=== PATIENT | female | born 1975 | race Two or more races ===

== ENCOUNTER 2019-04-13 10:34 | Emergency (ER) | payer SELFPAY ==
[2019-04-13 10:47] VITALS: BP 126/65; PULSE 68; TEMP 98.4; BMI 41.5
--- NOTE | 2019-04-13 11:08 | PDOC ---
History of Present Illness - General Chief Complaint: Pain, Acute Stated Complaint: KNEE PAIN Time Seen by Provider: 04/13/19 11:03 History Source: Patient Exam Limitations: No Limitations Past History - Travel Traveled outside of the country in the last 30 days: No Close contact w/someone who was outside of country & ill: No - Past Medical History Allergies/Adverse Reactions: Allergies Allergy/AdvReac Type Severity Reaction Status Date / Time No Known Allergies Allergy Verified 04/13/19 10:45 Home Medications: Ambulatory Orders Aleve 220 mg PO ONCE 04/13/19 Ibuprofen 600 mg PO Q6H #30 tablet 04/13/19 COPD: No - Suicide/Smoking/Psychosocial Hx Smoking History: Never smoked Review of Systems - Review of Systems Able to Perform ROS?: Yes Comments:: 04/13/19 11:04 CONSTITUTIONAL: Absent: fever, chills, diaphoresis, generalized weakness, malaise, loss of appetite MUSCULOSKELETAL: Present: L knee pain Absent: myalgia, joint swelling SKIN: Absent: rash, itching, pallor NEUROLOGIC: Absent: headache, focal weakness or paresthesias, dizziness, unsteady gait, seizure, mental status changes, bladder or bowel incontinence PSYCHIATRIC: Absent: anxiety, depression, suicidal or homicidal ideation, hallucinations. Is the patient limited Azerbaijani proficient: No *Physical Exam - Vital Signs Last Vital Signs Temp Pulse Resp BP Pulse Ox 98.4 F 68 18 126/65 98 04/13/19 10:46 04/13/19 10:46 04/13/19 10:46 04/13/19 10:46 04/13/19 10:46 - Physical Exam Comments: 04/13/19 11:05 GENERAL: The patient is awake, alert, and fully oriented, in no acute distress. HEAD: Normal with no signs of trauma. EYES: Pupils equal, round and reactive to light, extraocular movements intact, sclera anicteric, conjunctiva clear. EXTREMITIES: TTP of the posterior L knee and calf. Negative Amber's, alec' s and posterior draw testing. Negative varus and valgus stress testing. Normal range of motion, no edema. NEUROLOGICAL: Normal speech, normal gait. PSYCH: Normal mood, normal affect. SKIN: Warm, Dry, normal turgor, no rashes or lesions noted. Medical Decision Making - Medical Decision Making 04/13/19 11:33 The patient is a 43 y/o F who presents to the ER for L knee pain for two weeks. The patient states that she fell approximately 2 weeks ago, but landed on her L knee. She now states that her left knee swells at night and it hurts to walk down the stairs. She also states that after standing for long periods her knee starts to hurt. She states that the pain is mostly in the back of her knee. Denies fevers, chills, numbness and tingling to the affected extremity weakness the affected extremity. The patient is taking Motrin at home with little relief of her symptoms. A/P: Knee pain On exam patient with direct palpation of the posterior knee and calf. Negative Rohit's testing, Alec's testing and posterior drawer testing Skin color and temperature appear normal, good distal pulses. X-ray and US ordered 04/13/19 13:48 Delay of d/c 2/2 issue with PACS Spoke with Dr. Tena states no DVT on read. Unable to close out report Will dc home with orthopedic followup Most likely knee sprain I discussed the physical exam findings, ancillary test results and final diagnoses with the patient. I answered all of the patient's questions. The patient was satisfied with the care received and felt comfortable with the discharge plan and treatment plan. The Patient agrees to follow up with the primary care physician/specialist within 24-72 hours. Return precautions were given. *DC/Admit/Observation/Transfer Diagnosis at time of Disposition: Knee sprain Qualifiers: Encounter type: initial encounter Involved ligament of knee: unspecified ligament Laterality: left Qualified Code(s): S83.92XA - Sprain of unspecified site of left knee, initial encounter - Discharge Dispostion Disposition: HOME Condition at time of disposition: Stable Decision to Admit order: No - Referrals Referrals: Edre Rhoades DO [Staff Physician] - Vivek Taylor MD [Staff Physician] - Neri Perez MD [Staff Physician] - - Patient Instructions Printed Discharge Instructions: DI for Knee Pain Additional Instructions: You were evaluated for your knee pain Your DVT study was negative for clots Your x-ray was negative for broken bones You most likely have a knee sprain Keep the knee elevated at rest You may take Motrin 600mg every 6 hours as needed for pain Wear the CECILIA wrap for comfort Follow up with orthopedics in 24-72 hours. A referral has been provided to you Return to the ER for any new or worsening symptoms Te evaluaron por dolor de rodilla Gunter estudio de TVP fue negativo para cogulos Gunter radiografa fue negativa para los huesos rotos Es muy probable que tengas un esguince de rodilla Mantener la rodilla elevada en reposo Puede erendira Motrin 600 mg cada 6 horas segn sea necesario para el dolor. Use la envoltura CECILIA para mayor comodidad Seguimiento con ortopedia en 24-72 horas. Se le anderson proporcionado poly referencia Regrese a la deric de emergencias para detectar cualquier sntoma nuevo o que empeore. - Post Discharge Activity Forms/Work/School Notes: Back to Work
[2019-04-13] MEDS ORDERED: ACETAMINOPHEN 325 MG TABLET (FP) PO ONE (11:22)
[2019-04-13] MEDS ORDERED: ACETAMINOPHEN 325 MG TABLET (FP) ONE (11:27)
== END 2019-04-13 13:59 | disposition home or self-care (01) ==
LOC: JERFT 10:34
DX: S83.8X2A Sprain of other specified parts of left knee, initial encounter (principal); X58.XXXA Exposure to other specified factors, initial encounter; Y93.89 Activity, other specified; Y92.038 Other place in apartment as the place of occurrence of the external cause; Y99.8 Other external cause status
CPT/HCPCS: 73562-TC-LT-FY; 93971-TC; 99281-25

== ENCOUNTER 2020-12-22 16:55 | Emergency (ER) | payer SELFPAY ==
[2020-12-22 17:56] VITALS: BMI 42.5
[2020-12-22] MEDS ORDERED: ACETAMINOPHEN 500 MG TABLET (FP) PO ONE (18:40)
[2020-12-22] MEDS ORDERED: ACETAMINOPHEN 325 MG TABLET (FP) ONE (21:20)
[2020-12-22] MEDS ORDERED: ACETAMINOPHEN 500 MG TABLET (FP) ONE (21:23)
[2020-12-22 21:44] LABS: BASO % 0.2 % (0-2.0); EOS % 0.1 % (0-4.5); HEMOGLOBIN 12.8 GM/dL (10.7-15.3); LYMPH % 15.9 % (8-40); MCH 29.5 pg (25.7-33.7); MCHC 32.8 g/dl (32.0-36.0); MEAN CELL VOLUME 89.9 fl (80-96); MONO % 7.1 % (3.8-10.2); NEUT % 76.7 % (42.8-82.8); PLATELET COUNT 168 K/MM3 (134-434); RBC 4.34 M/mm3 (3.60-5.2); RDW 13.7 % (11.6-15.6); WHITE BLOOD COUNT 4.5 K/mm3 (4.0-10.0)
[2020-12-22 22:01] LABS: CHLORIDE 108 mmol/L (98-107); SODIUM 139 mmol/L (136-145)
[2020-12-22 22:06] LABS: BLOOD UREA NITROGEN 11.2 mg/dL (7-18); CALCIUM 8.4 mg/dL (8.5-10.1)
[2020-12-22 22:07] LABS: ALBUMIN 3.2 g/dl (3.4-5.0); ANION GAP 5 MMOL/L (8-16); CO2 26 mmol/L (21-32); GLUCOSE,RANDOM 108 mg/dL (74-106)
[2020-12-22 22:09] LABS: SGOT/AST 99 U/L (15-37); SGPT/ALT 107 U/L (13-61)
[2020-12-22 22:10] LABS: CREATININE 0.6 mg/dL (0.55-1.3)
[2020-12-22 22:11] LABS: BILIRUBIN,TOTAL 0.3 mg/dL (0.2-1); TOT PROT 6.8 g/dl (6.4-8.2)
[2020-12-22 22:12] LABS: ALK PHOS 129 U/L (45-117)
[2020-12-22 22:54] VITALS: BP 114/57; PULSE 84; TEMP 99.3
== END 2020-12-22 22:51 | disposition home or self-care (01) ==
LOC: JER 16:55
DX: R07.9 Chest pain, unspecified (principal); U07.1 COVID-19
CPT/HCPCS: 36415; 71046-TC-FY; 80053; 82550; 84484; 85025; 93005; 93010; 99285-25

== ENCOUNTER 2020-12-25 22:31 | Inpatient (IN) | payer OTHER ==
[2020-12-25] MEDS ORDERED: DEXAMETHASONE SOD PHOSPHATE 4 MG/1 ML VIAL IVPUSH ONE (22:55)
[2020-12-25 23:06] LABS: VENOUS BASE EXCESS 0.3 mmol/L (-2-2); VENOUS O2 SATURATION 49.1 % (70-80); VENOUS PCO2 39.8 mmHg (38-52); VENOUS PH 7.412 (7.310-7.410)
[2020-12-25 23:08] LABS: BASO % 0.1 % (0-2.0); HEMATOCRIT 39.7 % (32.4-45.2); LYMPH % 4.3 % (8-40); MCH 29.3 pg (25.7-33.7); MCHC 32.6 g/dl (32.0-36.0); MEAN CELL VOLUME 89.9 fl (80-96); NEUT % 91.6 % (42.8-82.8); PLATELET COUNT 273 K/MM3 (134-434); RBC 4.41 M/mm3 (3.60-5.2); RDW 13.9 % (11.6-15.6); WHITE BLOOD COUNT 10.3 K/mm3 (4.0-10.0)
[2020-12-25] MEDS ORDERED: DEXAMETHASONE SOD PHOSPHATE 10 MG/1 ML VIAL ONE (23:11)
[2020-12-25 23:32] LABS: CHLORIDE 108 mmol/L (98-107); SODIUM 141 mmol/L (136-145)
[2020-12-25 23:34] LABS: ALBUMIN 3.1 g/dl (3.4-5.0); CALCIUM 8.6 mg/dL (8.5-10.1)
[2020-12-25 23:35] LABS: ANION GAP 9 MMOL/L (8-16); BLOOD UREA NITROGEN 10.1 mg/dL (7-18); CO2 24 mmol/L (21-32); GLUCOSE,RANDOM 144 mg/dL (74-106)
[2020-12-25 23:38] LABS: BILIRUBIN,DIRECT 0.2 mg/dL (0.0-0.2); CREATININE 0.7 mg/dL (0.55-1.3); SGOT/AST 87 U/L (15-37); SGPT/ALT 102 U/L (13-61)
[2020-12-25 23:39] LABS: BILIRUBIN,TOTAL 0.3 mg/dL (0.2-1); LDH 620 U/L (84-246); TOT PROT 6.9 g/dl (6.4-8.2)
[2020-12-25 23:48] LABS: ANISOCYTOSIS 0; MACROCYTOSIS 0; PLATELET ESTIMATE NORMAL
[2020-12-25 23:52] LABS: INR 1.06 (0.83-1.09); PROTHROMBIN TIME (PATIENT) 12.8 SEC (9.7-13.0)
[2020-12-25 23:55] LABS: ACTIVATED PTT 28.9 SECONDS (25.2-36.5)
[2020-12-26] LABS: LACTIC ACID 2.3 mmol/L (0.4-2.0)
[2020-12-26] MEDS ORDERED: ACETAMINOPHEN 1000 MG/100 ML VIAL (NON FORMULARY) IVPB ONE (00:11)
[2020-12-26] MEDS ORDERED: LACTATED RINGERS SOLUTION 1000 ML INFUS.BAG IV STA (00:13)
[2020-12-26] MEDS ORDERED: ACETAMINOPHEN INJECTION 100 ML IVPB ONE (00:14)
[2020-12-26 01:36] LABS: ALK PHOS 160 U/L (45-117)
[2020-12-26] MEDS ORDERED: FUROSEMIDE 40 MG/4 ML INJECTABLE VIAL IVPUSH ONE ×2 (03:30→05:52)
[2020-12-26] MEDS ORDERED: FUROSEMIDE 40 MG/4 ML INJECTABLE VIAL ONE ×2 (03:34→06:27)
[2020-12-26] MEDS ORDERED: ALBUTEROL SO4 HFA INHALER IH PRN (03:47)
[2020-12-26] MEDS ORDERED: guaiFENesin 200 MG/10 ML 10 ML UNIT-DOSE CUPS PO PRN (03:47)
[2020-12-26 06:07] LABS: BASO % 0.1 % (0-2.0); HEMATOCRIT 39.5 % (32.4-45.2); HEMOGLOBIN 13.2 GM/dL (10.7-15.3); LYMPH % 4.8 % (8-40); MCH 29.7 pg (25.7-33.7); MCHC 33.5 g/dl (32.0-36.0); MEAN CELL VOLUME 88.7 fl (80-96); MEAN PLT VOLUME 7.9 fl (7.5-11.1); MONO % 3.2 % (3.8-10.2); NEUT % 91.9 % (42.8-82.8); PLATELET COUNT 291 K/MM3 (134-434); RBC 4.45 M/mm3 (3.60-5.2); RDW 13.8 % (11.6-15.6); WHITE BLOOD COUNT 8.7 K/mm3 (4.0-10.0)
[2020-12-26] MEDS ORDERED: ACETAMINOPHEN 325 MG TABLET (FP) PO PRN (06:10)
[2020-12-26 06:23] LABS: MAGNESIUM 2.7 mg/dL (1.8-2.4)
[2020-12-26] MEDS ORDERED: MORPHINE SULFATE 2 MG/ML VIAL IVPUSH ONE (06:26)
[2020-12-26] MEDS ORDERED: morphine CARPU-JECT 2 MG/1 ML DISP.SYRIN IVPUSH ONE (06:26)
[2020-12-26 06:33] LABS: CALCIUM 8.6 mg/dL (8.5-10.1)
[2020-12-26] MEDS ORDERED: MORPHINE SULFATE 2 MG/ML VIAL ONE (06:33)
[2020-12-26 06:34] LABS: BLOOD UREA NITROGEN 10.3 mg/dL (7-18)
[2020-12-26 06:37] LABS: CREATININE 0.6 mg/dL (0.55-1.3)
[2020-12-26 06:38] LABS: BILIRUBIN,TOTAL 0.3 mg/dL (0.2-1)
[2020-12-26] MEDS ORDERED: morphine SULFATE 4 MG/ML VIAL ONE (08:25)
[2020-12-26] MEDS ORDERED: CHOLECALCIFEROL (VIT D3) 1,000 UNIT (25 MCG) TABLET ONE (08:30)
[2020-12-26] MEDS ORDERED: ASCORBIC ACID 500 MG TABLET (FP) ONE (08:30)
[2020-12-26] MEDS ORDERED: ZINC SULFATE 220 MG CAPSULE (FP) ONE (08:30)
[2020-12-26] MEDS ORDERED: DEXAMETHASONE SOD PHOSPHATE 4 MG/1 ML VIAL ONE (08:30)
[2020-12-26] MEDS ORDERED: ENOXAPARIN NA (PORCINE) 40 MG/0.4 ML DISP.SYRIN SQ ONE (08:30)
[2020-12-26] MEDS ORDERED: TOCILIZUMAB (ACTEMRA) 200 MG/10 ML VIAL IVPB ONE (08:56)
[2020-12-26] MEDS: DEXAMETHASONE SOD PHOSPHATE 4 MG/1 ML VIAL IVPUSH SCH (09:01)
[2020-12-26] MEDS: CHOLECALCIFEROL (VIT D3) 1,000 UNIT (25 MCG) TABLET PO SCH (09:01)
[2020-12-26] MEDS: ZINC SULFATE 220 MG CAPSULE (FP) PO SCH (09:01)
[2020-12-26] MEDS: ASCORBIC ACID 500 MG TABLET (FP) PO SCH ×2 (09:01→21:39)
[2020-12-26 09:30] LABS: ANISOCYTOSIS 0; MACROCYTOSIS 0; PLATELET ESTIMATE NORMAL
[2020-12-26] MEDS ORDERED: SODIUM CHLORIDE IVPB ONE (09:30)
[2020-12-26] MEDS ORDERED: TOCILIZUMAB IVPB ONE (09:30)
[2020-12-26] MEDS ORDERED: ENOXAPARIN NA (PORCINE) 40 MG/0.4 ML DISP.SYRIN SQ SCH ×2 (10:00→22:00)
[2020-12-26] MEDS: BUDESONIDE/FORMETEROL FUMARATE 160/4.5 mcg INHALER IH SCH ×2 (11:08→21:39)
[2020-12-26] MEDS ORDERED: REMDESIVIR 200 MG in SODIUM CHLORIDE 210 ML IVPB ONE (15:47)
[2020-12-26 19:17] LABS: EPI CELLS 16 /uL (0-25.1); HYALINE CASTS 2 /uL (0-3.1); URINE APPEARANCE CLEAR; URINE BACTERIA 246 /uL (0-1359); URINE BILIRUBIN NEGATIVE (NEGATIVE); URINE COLOR DK YELLOW; URINE GLUCOSE (UA) NEGATIVE (NEGATIVE); URINE KETONE NEGATIVE (NEGATIVE); URINE LEUK ESTERASE NEGATIVE (NEGATIVE); URINE NITRITE NEGATIVE (NEGATIVE); URINE PROTEIN 1+ (NEGATIVE); URINE RBC 23 /uL (0-23.9); URINE WBC 6 /uL (0-25.8)
[2020-12-26] MEDS: MUPIROCIN 2% TOPICAL OINTMENT FOR DECOLONIZATION NS SCH (21:39)
[2020-12-26] MEDS: CHLORHEXIDINE GLUCONATE 4% CLEANSER FOR DECOLONIZATION TP SCH (21:39)
[2020-12-27] MEDS ORDERED: ONDANSETRON 4 MG/2 ML VIAL IVPUSH ONE ×2 (00:31→06:23)
[2020-12-27] MEDS ORDERED: ONDANSETRON 4 MG/2 ML VIAL ONE (05:49)
[2020-12-27 06:36] LABS: HEMATOCRIT 38.3 % (32.4-45.2); HEMOGLOBIN 12.9 GM/dL (10.7-15.3); MCH 29.9 pg (25.7-33.7); MCHC 33.8 g/dl (32.0-36.0); MEAN CELL VOLUME 88.6 fl (80-96); PLATELET COUNT 343 K/MM3 (134-434); RBC 4.32 M/mm3 (3.60-5.2); RDW 13.8 % (11.6-15.6); WHITE BLOOD COUNT 5.5 K/mm3 (4.0-10.0)
[2020-12-27 07:12] LABS: CHLORIDE 108 mmol/L (98-107); SODIUM 141 mmol/L (136-145)
[2020-12-27 07:17] LABS: ALBUMIN 2.7 g/dl (3.4-5.0); ANION GAP 5 MMOL/L (8-16); BLOOD UREA NITROGEN 24.8 mg/dL (7-18); CALCIUM 8.2 mg/dL (8.5-10.1); CO2 28 mmol/L (21-32); GLUCOSE,RANDOM 125 mg/dL (74-106)
[2020-12-27 07:19] LABS: MAGNESIUM 2.6 mg/dL (1.8-2.4)
[2020-12-27 07:20] LABS: CREATININE 0.6 mg/dL (0.55-1.3); SGOT/AST 65 U/L (15-37); SGPT/ALT 81 U/L (13-61)
[2020-12-27 07:22] LABS: BILIRUBIN,TOTAL 0.3 mg/dL (0.2-1); TOT PROT 6.6 g/dl (6.4-8.2)
[2020-12-27 07:30] LABS: LDH 564 U/L (84-246)
[2020-12-27 07:34] LABS: ALK PHOS 121 U/L (45-117)
[2020-12-27] MEDS ORDERED: MORPHINE SULFATE 2 MG/ML VIAL IVPUSH ONE (08:22)
[2020-12-27] MEDS: MUPIROCIN 2% TOPICAL OINTMENT FOR DECOLONIZATION NS SCH ×2 (09:00→22:28)
[2020-12-27] MEDS: CHOLECALCIFEROL (VIT D3) 1,000 UNIT (25 MCG) TABLET PO SCH (09:01)
[2020-12-27] MEDS: ZINC SULFATE 220 MG CAPSULE (FP) PO SCH (09:01)
[2020-12-27] MEDS: ASCORBIC ACID 500 MG TABLET (FP) PO SCH ×2 (09:01→22:30)
[2020-12-27] MEDS: DEXAMETHASONE SOD PHOSPHATE 4 MG/1 ML VIAL IVPUSH SCH (09:03)
[2020-12-27] MEDS ORDERED: ENOXAPARIN NA (PORCINE) 40 MG/0.4 ML DISP.SYRIN SQ SCH (10:00)
[2020-12-27] MEDS: ENOXAPARIN NA (PORCINE) 100 MG/1 ML DISP.SYRIN SQ SCH ×2 (10:53→22:29)
[2020-12-27] MEDS ORDERED: guaiFENesin 200 MG/10 ML 10 ML UNIT-DOSE CUPS PO PRN (13:01)
[2020-12-27] MEDS ORDERED: ACETAMINOPHEN 325 MG TABLET (FP) PO PRN (13:01)
[2020-12-27 13:10] LABS: HEP B CORE AB, TOT Negative (Negative)
[2020-12-27] MEDS ORDERED: PT OWN MED DRAWER 7, Y5N ONE (16:33)
[2020-12-27] MEDS: REMDESIVIR 100 MG in SODIUM CHLORIDE 230 ML IVPB SCH (16:35)
[2020-12-27] MEDS: ALBUTEROL SO4 HFA INHALER IH SCH ×4 (16:51→22:28)
[2020-12-27] MEDS: BUDESONIDE/FORMETEROL FUMARATE 160/4.5 mcg INHALER IH SCH ×2 (17:25→22:29)
[2020-12-27] MEDS: CHLORHEXIDINE GLUCONATE 4% CLEANSER FOR DECOLONIZATION TP SCH (22:28)
[2020-12-27] MEDS ORDERED: ONDANSETRON *ODT* 4 MG TABLET SL ONE (23:51)
[2020-12-28] MEDS: ALBUTEROL SO4 HFA INHALER IH SCH ×6 (01:45→21:46)
[2020-12-28 06:32] LABS: BASO % 0.3 % (0-2.0); EOS % 0.1 % (0-4.5); HEMATOCRIT 38.3 % (32.4-45.2); HEMOGLOBIN 12.7 GM/dL (10.7-15.3); LYMPH % 13.2 % (8-40); MCH 29.8 pg (25.7-33.7); MCHC 33.3 g/dl (32.0-36.0); MEAN CELL VOLUME 89.4 fl (80-96); MEAN PLT VOLUME 7.5 fl (7.5-11.1); MONO % 8.7 % (3.8-10.2); NEUT % 77.7 % (42.8-82.8); PLATELET COUNT 347 K/MM3 (134-434); RBC 4.28 M/mm3 (3.60-5.2); RDW 13.8 % (11.6-15.6); WHITE BLOOD COUNT 6.1 K/mm3 (4.0-10.0)
[2020-12-28 07:00] LABS: CALCIUM 8.1 mg/dL (8.5-10.1)
[2020-12-28 07:01] LABS: ALBUMIN 2.7 g/dl (3.4-5.0); BLOOD UREA NITROGEN 25.8 mg/dL (7-18); MAGNESIUM 2.4 mg/dL (1.8-2.4)
[2020-12-28 07:04] LABS: BILIRUBIN,TOTAL 0.4 mg/dL (0.2-1); CREATININE 0.6 mg/dL (0.55-1.3); PHOSPHOROUS 4.1 mg/dL (2.5-4.9); TOT PROT 6.3 g/dl (6.4-8.2)
[2020-12-28] MEDS: CHOLECALCIFEROL (VIT D3) 1,000 UNIT (25 MCG) TABLET PO SCH (10:06)
[2020-12-28] MEDS: ZINC SULFATE 220 MG CAPSULE (FP) PO SCH (10:06)
[2020-12-28] MEDS: ASCORBIC ACID 500 MG TABLET (FP) PO SCH ×2 (10:07→21:48)
[2020-12-28] MEDS: DEXAMETHASONE SOD PHOSPHATE 4 MG/1 ML VIAL IVPUSH SCH (10:07)
[2020-12-28] MEDS: ENOXAPARIN NA (PORCINE) 100 MG/1 ML DISP.SYRIN SQ SCH ×2 (10:09→21:47)
[2020-12-28] MEDS: MUPIROCIN 2% TOPICAL OINTMENT FOR DECOLONIZATION NS SCH ×2 (10:10→21:46)
[2020-12-28] MEDS: BUDESONIDE/FORMETEROL FUMARATE 160/4.5 mcg INHALER IH SCH ×2 (10:10→21:47)
[2020-12-28] MEDS: REMDESIVIR 100 MG in SODIUM CHLORIDE 230 ML IVPB SCH ×2 (10:19→17:00)
[2020-12-28] MEDS: guaiFENesin/CODEINE 10 ML UNIT-DOSE CUPS PO PRN (18:29)
[2020-12-28] MEDS: CHLORHEXIDINE GLUCONATE 4% CLEANSER FOR DECOLONIZATION TP SCH (21:46)
[2020-12-29] MEDS: TRIMETHOBENZAMIDE HCL 300 MG CAPSULE PO PRN ×3 (01:42→21:09)
[2020-12-29] MEDS: ALBUTEROL SO4 HFA INHALER IH SCH ×6 (01:44→21:23)
[2020-12-29] MEDS: guaiFENesin/CODEINE 10 ML UNIT-DOSE CUPS PO PRN ×3 (05:18→20:52)
[2020-12-29 07:17] LABS: BASO % 0.1 % (0-2.0); EOS % 1.1 % (0-4.5); HEMATOCRIT 38.8 % (32.4-45.2); HEMOGLOBIN 12.9 GM/dL (10.7-15.3); LYMPH % 12.9 % (8-40); MCH 29.5 pg (25.7-33.7); MCHC 33.2 g/dl (32.0-36.0); MEAN CELL VOLUME 88.7 fl (80-96); MEAN PLT VOLUME 7.6 fl (7.5-11.1); MONO % 8.6 % (3.8-10.2); NEUT % 77.3 % (42.8-82.8); PLATELET COUNT 376 K/MM3 (134-434); RBC 4.38 M/mm3 (3.60-5.2); RDW 13.5 % (11.6-15.6); WHITE BLOOD COUNT 7.3 K/mm3 (4.0-10.0)
[2020-12-29 07:56] LABS: CALCIUM 8.2 mg/dL (8.5-10.1)
[2020-12-29 07:57] LABS: ALBUMIN 2.8 g/dl (3.4-5.0); BLOOD UREA NITROGEN 23.1 mg/dL (7-18); MAGNESIUM 2.4 mg/dL (1.8-2.4)
[2020-12-29 07:59] LABS: CREATININE 0.5 mg/dL (0.55-1.3); PHOSPHOROUS 3.7 mg/dL (2.5-4.9)
[2020-12-29 08:01] LABS: BILIRUBIN,TOTAL 0.7 mg/dL (0.2-1)
[2020-12-29 08:02] LABS: TOT PROT 6.1 g/dl (6.4-8.2)
[2020-12-29] MEDS: DEXAMETHASONE SOD PHOSPHATE 4 MG/1 ML VIAL IVPUSH SCH (09:45)
[2020-12-29] MEDS: MUPIROCIN 2% TOPICAL OINTMENT FOR DECOLONIZATION NS SCH ×2 (09:45→21:10)
[2020-12-29] MEDS: CHOLECALCIFEROL (VIT D3) 1,000 UNIT (25 MCG) TABLET PO SCH (09:46)
[2020-12-29] MEDS: ZINC SULFATE 220 MG CAPSULE (FP) PO SCH (09:46)
[2020-12-29] MEDS: ASCORBIC ACID 500 MG TABLET (FP) PO SCH ×2 (09:46→21:09)
[2020-12-29] MEDS: FAMOTIDINE 20 MG TABLET PO SCH (09:46)
[2020-12-29] MEDS: ENOXAPARIN NA (PORCINE) 100 MG/1 ML DISP.SYRIN SQ SCH ×2 (09:46→21:09)
[2020-12-29] MEDS: BUDESONIDE/FORMETEROL FUMARATE 160/4.5 mcg INHALER IH SCH ×2 (09:47→21:10)
[2020-12-29] MEDS ORDERED: PT OWN MED DRAWER 7, Y5N ONE ×2 (13:06→20:41)
[2020-12-29] MEDS: REMDESIVIR 100 MG in SODIUM CHLORIDE 230 ML IVPB SCH (16:47)
[2020-12-29] MEDS: CHLORHEXIDINE GLUCONATE 4% CLEANSER FOR DECOLONIZATION TP SCH (21:10)
[2020-12-29] MEDS: ACETAMINOPHEN 325 MG TABLET (FP) PO PRN (21:23)
[2020-12-30] MEDS: ALBUTEROL SO4 HFA INHALER IH SCH ×6 (04:29→22:12)
[2020-12-30 06:40] LABS: BASO % 0.1 % (0-2.0); EOS % 1.6 % (0-4.5); HEMATOCRIT 39.8 % (32.4-45.2); HEMOGLOBIN 13.3 GM/dL (10.7-15.3); MCH 29.7 pg (25.7-33.7); MCHC 33.6 g/dl (32.0-36.0); MEAN CELL VOLUME 88.5 fl (80-96); MEAN PLT VOLUME 7.8 fl (7.5-11.1); MONO % 6.7 % (3.8-10.2); NEUT % 82.6 % (42.8-82.8); PLATELET COUNT 412 K/MM3 (134-434); RDW 13.7 % (11.6-15.6); WHITE BLOOD COUNT 12.3 K/mm3 (4.0-10.0)
[2020-12-30 07:18] LABS: ALBUMIN 2.9 g/dl (3.4-5.0); CALCIUM 8.3 mg/dL (8.5-10.1)
[2020-12-30 07:19] LABS: BLOOD UREA NITROGEN 21.5 mg/dL (7-18); MAGNESIUM 2.4 mg/dL (1.8-2.4)
[2020-12-30 07:21] LABS: PHOSPHOROUS 4.3 mg/dL (2.5-4.9)
[2020-12-30 07:22] LABS: BILIRUBIN,TOTAL 0.4 mg/dL (0.2-1); CREATININE 0.6 mg/dL (0.55-1.3)
[2020-12-30 07:24] LABS: TOT PROT 6.2 g/dl (6.4-8.2)
[2020-12-30] MEDS ORDERED: PT OWN MED DRAWER 7, Y5N ONE (09:06)
[2020-12-30] MEDS: ASCORBIC ACID 500 MG TABLET (FP) PO SCH ×2 (09:07→22:12)
[2020-12-30] MEDS: ZINC SULFATE 220 MG CAPSULE (FP) PO SCH (09:07)
[2020-12-30] MEDS: TRIMETHOBENZAMIDE HCL 300 MG CAPSULE PO PRN (09:08)
[2020-12-30] MEDS: DEXAMETHASONE SOD PHOSPHATE 4 MG/1 ML VIAL IVPUSH SCH (09:08)
[2020-12-30] MEDS: FAMOTIDINE 20 MG TABLET PO SCH (09:08)
[2020-12-30] MEDS: CHOLECALCIFEROL (VIT D3) 1,000 UNIT (25 MCG) TABLET PO SCH (09:08)
[2020-12-30] MEDS: guaiFENesin/CODEINE 10 ML UNIT-DOSE CUPS PO PRN ×3 (09:08→22:12)
[2020-12-30] MEDS: ENOXAPARIN NA (PORCINE) 100 MG/1 ML DISP.SYRIN SQ SCH ×2 (09:08→22:12)
[2020-12-30] MEDS: BUDESONIDE/FORMETEROL FUMARATE 160/4.5 mcg INHALER IH SCH ×2 (09:09→22:12)
[2020-12-30] MEDS: MUPIROCIN 2% TOPICAL OINTMENT FOR DECOLONIZATION NS SCH ×2 (09:09→22:12)
[2020-12-30] MEDS: REMDESIVIR 100 MG in SODIUM CHLORIDE 230 ML IVPB SCH (16:55)
[2020-12-30] MEDS: ACETAMINOPHEN 325 MG TABLET (FP) PO PRN (19:59)
[2020-12-30] MEDS ORDERED: LACTATED RINGERS SOLUTION 1000 ML INFUS.BAG IV PRN (20:34)
[2020-12-30] MEDS: CHLORHEXIDINE GLUCONATE 4% CLEANSER FOR DECOLONIZATION TP SCH (22:12)
[2020-12-31] MEDS ORDERED: PT OWN MED DRAWER 7, Y5N ONE (00:28)
[2020-12-31] MEDS: TRIMETHOBENZAMIDE HCL 300 MG CAPSULE PO PRN (00:30)
[2020-12-31] MEDS: ALBUTEROL SO4 HFA INHALER IH SCH ×3 (00:45→09:17)
[2020-12-31 07:22] LABS: BASO % 0.2 % (0-2.0); EOS % 2.6 % (0-4.5); HEMATOCRIT 39.7 % (32.4-45.2); HEMOGLOBIN 13.4 GM/dL (10.7-15.3); LYMPH % 6.6 % (8-40); MCH 29.7 pg (25.7-33.7); MCHC 33.8 g/dl (32.0-36.0); MEAN CELL VOLUME 87.9 fl (80-96); MONO % 4.3 % (3.8-10.2); NEUT % 86.3 % (42.8-82.8); PLATELET COUNT 427 K/MM3 (134-434); RBC 4.52 M/mm3 (3.60-5.2); RDW 13.6 % (11.6-15.6)
[2020-12-31 07:55] LABS: BLOOD UREA NITROGEN 21.5 mg/dL (7-18); CALCIUM 8.7 mg/dL (8.5-10.1); MAGNESIUM 2.5 mg/dL (1.8-2.4)
[2020-12-31 07:58] LABS: BILIRUBIN,TOTAL 0.4 mg/dL (0.2-1); CREATININE 0.6 mg/dL (0.55-1.3); PHOSPHOROUS 4.5 mg/dL (2.5-4.9); TOT PROT 6.1 g/dl (6.4-8.2)
[2020-12-31] MEDS: MUPIROCIN 2% TOPICAL OINTMENT FOR DECOLONIZATION NS SCH (09:17)
[2020-12-31] MEDS: ENOXAPARIN NA (PORCINE) 100 MG/1 ML DISP.SYRIN SQ SCH ×2 (09:17→23:16)
[2020-12-31] MEDS: FAMOTIDINE 20 MG TABLET PO SCH (09:17)
[2020-12-31] MEDS: DEXAMETHASONE SOD PHOSPHATE 4 MG/1 ML VIAL IVPUSH SCH ×2 (09:17→23:14)
[2020-12-31] MEDS: ZINC SULFATE 220 MG CAPSULE (FP) PO SCH (09:17)
[2020-12-31] MEDS: guaiFENesin/CODEINE 10 ML UNIT-DOSE CUPS PO PRN (09:17)
[2020-12-31] MEDS: ASCORBIC ACID 500 MG TABLET (FP) PO SCH ×2 (09:17→23:16)
[2020-12-31] MEDS: CHOLECALCIFEROL (VIT D3) 1,000 UNIT (25 MCG) TABLET PO SCH (09:17)
[2020-12-31] MEDS: BUDESONIDE/FORMETEROL FUMARATE 160/4.5 mcg INHALER IH SCH ×2 (09:17→23:16)
[2020-12-31] MEDS: AMINO ACIDS 4.25%/D5W 1,000 ML IV SCH (14:36)
[2020-12-31] MEDS: REMDESIVIR 100 MG in SODIUM CHLORIDE 230 ML IVPB SCH (14:39)
[2020-12-31] MEDS ORDERED: morphine SULFATE 4 MG/ML VIAL ONE (22:12)
[2020-12-31] MEDS ORDERED: LORazepam 2 MG/ML SDV VIAL ONE (22:17)
[2020-12-31] MEDS ORDERED: MORPHINE SULFATE 2 MG/ML VIAL IVPUSH ONE (22:20)
[2020-12-31] MEDS ORDERED: LORazepam 2 MG/ML SDV VIAL IVPUSH ONE (22:20)
[2020-12-31] MEDS: CHLORHEXIDINE GLUCONATE 4% CLEANSER FOR DECOLONIZATION TP SCH (23:16)
[2021-01-01] MEDS ORDERED: ACETAMINOPHEN 1000 MG/100 ML VIAL (NON FORMULARY) IVPB PRN (00:52)
[2021-01-01] MEDS: ALBUTEROL SO4 HFA INHALER IH SCH ×6 (06:02→22:47)
[2021-01-01 06:38] LABS: BASO % 0.2 % (0-2.0); EOS % 1.1 % (0-4.5); HEMATOCRIT 39.3 % (32.4-45.2); LYMPH % 4.4 % (8-40); MCH 29.3 pg (25.7-33.7); MCHC 33.1 g/dl (32.0-36.0); MEAN CELL VOLUME 88.6 fl (80-96); MEAN PLT VOLUME 8.3 fl (7.5-11.1); NEUT % 91.3 % (42.8-82.8); PLATELET COUNT 413 K/MM3 (134-434); RBC 4.44 M/mm3 (3.60-5.2); RDW 13.6 % (11.6-15.6); WHITE BLOOD COUNT 18.8 K/mm3 (4.0-10.0)
[2021-01-01 06:54] LABS: ALBUMIN 2.9 g/dl (3.4-5.0); BLOOD UREA NITROGEN 23.1 mg/dL (7-18); CALCIUM 8.5 mg/dL (8.5-10.1)
[2021-01-01 06:55] LABS: MAGNESIUM 2.4 mg/dL (1.8-2.4)
[2021-01-01 06:57] LABS: CREATININE 0.5 mg/dL (0.55-1.3)
[2021-01-01 06:59] LABS: BILIRUBIN,TOTAL 0.4 mg/dL (0.2-1)
[2021-01-01 09:12] LABS: ANISOCYTOSIS 1+; MACROCYTOSIS 0; PLATELET ESTIMATE NORMAL
[2021-01-01] MEDS ORDERED: PT OWN MED DRAWER 7, Y5N ONE ×5 (09:42→13:33)
[2021-01-01] MEDS: DEXAMETHASONE SOD PHOSPHATE 4 MG/1 ML VIAL IVPUSH SCH ×2 (10:13→22:48)
[2021-01-01] MEDS: ENOXAPARIN NA (PORCINE) 100 MG/1 ML DISP.SYRIN SQ SCH ×2 (10:15→22:48)
[2021-01-01] MEDS: CHOLECALCIFEROL (VIT D3) 1,000 UNIT (25 MCG) TABLET PO SCH (10:16)
[2021-01-01] MEDS: FAMOTIDINE 20 MG TABLET PO SCH (10:16)
[2021-01-01] MEDS: ASCORBIC ACID 500 MG TABLET (FP) PO SCH ×2 (10:16→22:49)
[2021-01-01] MEDS: ZINC SULFATE 220 MG CAPSULE (FP) PO SCH (10:16)
[2021-01-01] MEDS: REMDESIVIR 100 MG in SODIUM CHLORIDE 230 ML IVPB SCH (10:58)
[2021-01-01] MEDS: BUDESONIDE/FORMETEROL FUMARATE 160/4.5 mcg INHALER IH SCH ×2 (10:59→22:49)
[2021-01-01] MEDS: AMINO ACIDS 4.25%/D5W 1,000 ML IV SCH ×2 (13:04→14:59)
[2021-01-01] MEDS ORDERED: SODIUM CHLORIDE FOR INHALATION 3 ML VIAL.NEB IH PRN (14:56)
[2021-01-01 16:32] VITALS: BMI 37.6
[2021-01-01] MEDS ORDERED: MORPHINE SULFATE 2 MG/ML VIAL IVPUSH ONE (18:28)
[2021-01-01] MEDS: CHLORHEXIDINE GLUCONATE 4% CLEANSER FOR DECOLONIZATION TP SCH (22:49)
[2021-01-02] MEDS: ALBUTEROL SO4 HFA INHALER IH SCH ×2 (03:37→07:03)
[2021-01-02 06:43] LABS: CHLORIDE 103 mmol/L (98-107); SODIUM 135 mmol/L (136-145)
[2021-01-02 06:46] LABS: BASO % 0.2 % (0-2.0); EOS % 0.3 % (0-4.5); HEMATOCRIT 39.3 % (32.4-45.2); HEMOGLOBIN 12.9 GM/dL (10.7-15.3); LYMPH % 4.5 % (8-40); MCH 29.2 pg (25.7-33.7); MCHC 32.9 g/dl (32.0-36.0); MEAN PLT VOLUME 8.3 fl (7.5-11.1); MONO % 4.1 % (3.8-10.2); NEUT % 90.9 % (42.8-82.8); PLATELET COUNT 420 K/MM3 (134-434); RBC 4.41 M/mm3 (3.60-5.2); RDW 13.9 % (11.6-15.6)
[2021-01-02 06:47] LABS: MAGNESIUM 2.4 mg/dL (1.8-2.4)
[2021-01-02 06:48] LABS: CALCIUM 8.7 mg/dL (8.5-10.1)
[2021-01-02 06:49] LABS: ANION GAP 3 MMOL/L (8-16); BLOOD UREA NITROGEN 24.8 mg/dL (7-18); CO2 29 mmol/L (21-32); GLUCOSE,RANDOM 137 mg/dL (74-106)
[2021-01-02 06:51] LABS: CREATININE 0.6 mg/dL (0.55-1.3); SGOT/AST 42 U/L (15-37); SGPT/ALT 69 U/L (13-61)
[2021-01-02 06:52] LABS: PHOSPHOROUS 4.2 mg/dL (2.5-4.9)
[2021-01-02 06:53] LABS: BILIRUBIN,TOTAL 0.5 mg/dL (0.2-1); LDH 606 U/L (84-246); TOT PROT 6.1 g/dl (6.4-8.2)
[2021-01-02 06:55] LABS: ALK PHOS 110 U/L (45-117)
[2021-01-02] MEDS ORDERED: PT OWN MED DRAWER 7, Y5N ONE ×2 (09:20→19:53)
[2021-01-02] MEDS: ENOXAPARIN NA (PORCINE) 100 MG/1 ML DISP.SYRIN SQ SCH ×2 (09:32→21:30)
[2021-01-02] MEDS: ZINC SULFATE 220 MG CAPSULE (FP) PO SCH (09:33)
[2021-01-02] MEDS: DEXAMETHASONE SOD PHOSPHATE 4 MG/1 ML VIAL IVPUSH SCH ×2 (09:33→21:30)
[2021-01-02] MEDS: CHOLECALCIFEROL (VIT D3) 1,000 UNIT (25 MCG) TABLET PO SCH (09:33)
[2021-01-02] MEDS: guaiFENesin/CODEINE 10 ML UNIT-DOSE CUPS PO PRN (09:33)
[2021-01-02] MEDS: ASCORBIC ACID 500 MG TABLET (FP) PO SCH ×2 (09:33→21:30)
[2021-01-02] MEDS: FAMOTIDINE 20 MG TABLET PO SCH (09:33)
[2021-01-02] MEDS: BUDESONIDE/FORMETEROL FUMARATE 160/4.5 mcg INHALER IH SCH ×2 (09:51→21:30)
[2021-01-02] MEDS: REMDESIVIR 100 MG in SODIUM CHLORIDE 230 ML IVPB SCH (10:11)
[2021-01-02] MEDS: AMINO ACIDS 4.25%/D5W 1,000 ML IV SCH (14:25)
[2021-01-02 14:53] LABS: ANISOCYTOSIS 0; MACROCYTOSIS 1+; OVALOCYTE 1+; PLATELET ESTIMATE NORMAL
[2021-01-02] MEDS ORDERED: DEXTROSE 50%-WATER - 25 GM/50 ML VIAL IVPUSH ONE (18:39)
[2021-01-02] MEDS ORDERED: MAG HYDROX/AL HYDROX/SIMETH 30 ML UNIT-DOSE CUP PO ONE (21:28)
[2021-01-02] MEDS: CHLORHEXIDINE GLUCONATE 4% CLEANSER FOR DECOLONIZATION TP SCH (21:30)
[2021-01-03 06:43] LABS: BASO % 0.1 % (0-2.0); EOS % 0.1 % (0-4.5); HEMATOCRIT 38.3 % (32.4-45.2); HEMOGLOBIN 12.8 GM/dL (10.7-15.3); LYMPH % 4.3 % (8-40); MCH 29.4 pg (25.7-33.7); MCHC 33.3 g/dl (32.0-36.0); MEAN CELL VOLUME 88.3 fl (80-96); MEAN PLT VOLUME 8.1 fl (7.5-11.1); MONO % 4.9 % (3.8-10.2); NEUT % 90.6 % (42.8-82.8); PLATELET COUNT 391 K/MM3 (134-434); RBC 4.34 M/mm3 (3.60-5.2); RDW 13.8 % (11.6-15.6); WHITE BLOOD COUNT 24.5 K/mm3 (4.0-10.0)
[2021-01-03 07:19] LABS: BLOOD UREA NITROGEN 22.6 mg/dL (7-18); CALCIUM 8.2 mg/dL (8.5-10.1)
[2021-01-03 07:20] LABS: MAGNESIUM 2.4 mg/dL (1.8-2.4)
[2021-01-03 07:23] LABS: BILIRUBIN,TOTAL 0.5 mg/dL (0.2-1); CREATININE 0.5 mg/dL (0.55-1.3)
[2021-01-03 07:24] LABS: TOT PROT 5.9 g/dl (6.4-8.2)
[2021-01-03 08:40] LABS: ANISOCYTOSIS 1+; MACROCYTOSIS 0; PLATELET ESTIMATE NORMAL
[2021-01-03] MEDS: REMDESIVIR 100 MG in SODIUM CHLORIDE 230 ML IVPB SCH (10:28)
[2021-01-03] MEDS: CHOLECALCIFEROL (VIT D3) 1,000 UNIT (25 MCG) TABLET PO SCH (10:28)
[2021-01-03] MEDS: ZINC SULFATE 220 MG CAPSULE (FP) PO SCH (10:28)
[2021-01-03] MEDS: DEXAMETHASONE SOD PHOSPHATE 4 MG/1 ML VIAL IVPUSH SCH ×2 (10:28→23:42)
[2021-01-03] MEDS: FAMOTIDINE 20 MG TABLET PO SCH (10:28)
[2021-01-03] MEDS: ASCORBIC ACID 500 MG TABLET (FP) PO SCH ×2 (10:29→23:42)
[2021-01-03] MEDS: BUDESONIDE/FORMETEROL FUMARATE 160/4.5 mcg INHALER IH SCH ×2 (10:42→23:42)
[2021-01-03] MEDS: ALBUTEROL SO4 HFA INHALER IH SCH ×3 (10:43→18:12)
[2021-01-03] MEDS ORDERED: PT OWN MED DRAWER 7, Y5N ONE ×2 (11:54→22:08)
[2021-01-03] MEDS: HEPARIN NA (PORCINE) 5,000 UNITS/ML 1ML VIAL SQ SCH ×2 (15:38→23:42)
[2021-01-03] MEDS: AMINO ACIDS 4.25%/D5W 1,000 ML IV SCH (15:39)
[2021-01-03] MEDS ORDERED: guaiFENesin/CODEINE 10 ML UNIT-DOSE CUPS PO ONE (22:21)
[2021-01-03] MEDS: CHLORHEXIDINE GLUCONATE 4% CLEANSER FOR DECOLONIZATION TP SCH (23:42)
[2021-01-04 07:07] LABS: BASO % 0.1 % (0-2.0); EOS % 0.1 % (0-4.5); HEMATOCRIT 39.3 % (32.4-45.2); HEMOGLOBIN 12.8 GM/dL (10.7-15.3); LYMPH % 3.3 % (8-40); MCH 29.2 pg (25.7-33.7); MCHC 32.6 g/dl (32.0-36.0); MEAN CELL VOLUME 89.7 fl (80-96); MEAN PLT VOLUME 8.9 fl (7.5-11.1); MONO % 4.6 % (3.8-10.2); NEUT % 91.9 % (42.8-82.8); PLATELET COUNT 333 K/MM3 (134-434); RBC 4.38 M/mm3 (3.60-5.2); RDW 14.2 % (11.6-15.6); WHITE BLOOD COUNT 24.7 K/mm3 (4.0-10.0)
[2021-01-04 07:31] LABS: CHLORIDE 100 mmol/L (98-107); SODIUM 135 mmol/L (136-145)
[2021-01-04 07:39] LABS: CALCIUM 8.4 mg/dL (8.5-10.1)
[2021-01-04 07:40] LABS: ANION GAP 8 MMOL/L (8-16); BLOOD UREA NITROGEN 20.9 mg/dL (7-18); CO2 26 mmol/L (21-32); GLUCOSE,RANDOM 133 mg/dL (74-106)
[2021-01-04 07:43] LABS: CREATININE 0.5 mg/dL (0.55-1.3); SGOT/AST 25 U/L (15-37); SGPT/ALT 53 U/L (13-61)
[2021-01-04 07:44] LABS: BILIRUBIN,TOTAL 0.6 mg/dL (0.2-1)
[2021-01-04] MEDS: HEPARIN NA (PORCINE) 5,000 UNITS/ML 1ML VIAL SQ SCH ×3 (07:45→21:26)
[2021-01-04 07:46] LABS: ALK PHOS 114 U/L (45-117)
[2021-01-04 08:21] LABS: LDH 585 U/L (84-246)
[2021-01-04] MEDS: ASCORBIC ACID 500 MG TABLET (FP) PO SCH ×2 (09:17→21:26)
[2021-01-04] MEDS: REMDESIVIR 100 MG in SODIUM CHLORIDE 230 ML IVPB SCH (09:17)
[2021-01-04] MEDS: ZINC SULFATE 220 MG CAPSULE (FP) PO SCH (09:17)
[2021-01-04] MEDS: FAMOTIDINE 20 MG TABLET PO SCH (09:17)
[2021-01-04] MEDS: CHOLECALCIFEROL (VIT D3) 1,000 UNIT (25 MCG) TABLET PO SCH (09:17)
[2021-01-04] MEDS: DEXAMETHASONE SOD PHOSPHATE 4 MG/1 ML VIAL IVPUSH SCH ×2 (09:18→21:26)
[2021-01-04] MEDS: BUDESONIDE/FORMETEROL FUMARATE 160/4.5 mcg INHALER IH SCH ×2 (09:18→21:25)
[2021-01-04 09:47] LABS: ANISOCYTOSIS 1+; MACROCYTOSIS 0; PLATELET ESTIMATE NORMAL
[2021-01-04] MEDS: AMINO ACIDS 4.25%/D5W 1,000 ML IV SCH (12:40)
[2021-01-04] MEDS: ACETAMINOPHEN 650 MG/20.3 ML ORAL SOLUTION (CUPS) PO PRN (14:07)
[2021-01-04] MEDS ORDERED: guaiFENesin 200 MG/10 ML 10 ML UNIT-DOSE CUPS PO ONE (20:01)
[2021-01-04] MEDS ORDERED: MELATONIN 5 MG TABLETS PO ONE (20:01)
[2021-01-04] MEDS ORDERED: ACETAMINOPHEN 1000 MG/100 ML VIAL (NON FORMULARY) IVPB ONE (20:01)
[2021-01-04] MEDS: AMPICILLIN NA/SULBACTAM NA 3 GM in SODIUM CHLORIDE 100 ML IVPB SCH (20:54)
[2021-01-04] MEDS: CHLORHEXIDINE GLUCONATE 4% CLEANSER FOR DECOLONIZATION TP SCH (21:26)
[2021-01-04] MEDS: ALBUTEROL SO4 HFA INHALER IH SCH (21:26)
[2021-01-05] MEDS: TRIMETHOBENZAMIDE HCL 300 MG CAPSULE PO PRN (00:15)
[2021-01-05] MEDS: AMPICILLIN NA/SULBACTAM NA 3 GM in SODIUM CHLORIDE 100 ML IVPB SCH ×3 (04:18→17:05)
[2021-01-05] MEDS: ALBUTEROL SO4 HFA INHALER IH SCH ×2 (04:18→22:26)
[2021-01-05] MEDS: HEPARIN NA (PORCINE) 5,000 UNITS/ML 1ML VIAL SQ SCH ×3 (06:00→22:26)
[2021-01-05 07:42] LABS: BASO % 0.2 % (0-2.0); EOS % 0.1 % (0-4.5); HEMATOCRIT 38.7 % (32.4-45.2); LYMPH % 3.4 % (8-40); MCH 29.8 pg (25.7-33.7); MCHC 33.6 g/dl (32.0-36.0); MEAN CELL VOLUME 88.8 fl (80-96); MEAN PLT VOLUME 9.1 fl (7.5-11.1); MONO % 4.7 % (3.8-10.2); NEUT % 91.6 % (42.8-82.8); PLATELET COUNT 315 K/MM3 (134-434); RBC 4.36 M/mm3 (3.60-5.2); RDW 14.1 % (11.6-15.6); WHITE BLOOD COUNT 25.3 K/mm3 (4.0-10.0)
[2021-01-05 07:52] LABS: CHLORIDE 103 mmol/L (98-107); SODIUM 139 mmol/L (136-145)
[2021-01-05 07:58] LABS: ALBUMIN 2.9 g/dl (3.4-5.0); ANION GAP 8 MMOL/L (8-16); CALCIUM 8.3 mg/dL (8.5-10.1); CO2 28 mmol/L (21-32)
[2021-01-05 07:59] LABS: BLOOD UREA NITROGEN 21.6 mg/dL (7-18); GLUCOSE,RANDOM 131 mg/dL (74-106)
[2021-01-05 08:01] LABS: SGPT/ALT 43 U/L (13-61)
[2021-01-05 08:02] LABS: CREATININE 0.5 mg/dL (0.55-1.3); SGOT/AST 22 U/L (15-37)
[2021-01-05 08:03] LABS: BILIRUBIN,TOTAL 0.5 mg/dL (0.2-1); TOT PROT 5.9 g/dl (6.4-8.2)
[2021-01-05 08:04] LABS: ALK PHOS 110 U/L (45-117)
[2021-01-05 08:11] LABS: LACTIC ACID 2.3 mmol/L (0.4-2.0)
[2021-01-05] MEDS: CHOLECALCIFEROL (VIT D3) 1,000 UNIT (25 MCG) TABLET PO SCH (09:08)
[2021-01-05] MEDS: ZINC SULFATE 220 MG CAPSULE (FP) PO SCH (09:08)
[2021-01-05] MEDS: FAMOTIDINE 20 MG TABLET PO SCH (09:09)
[2021-01-05] MEDS: DEXAMETHASONE SOD PHOSPHATE 4 MG/1 ML VIAL IVPUSH SCH ×2 (09:09→22:20)
[2021-01-05] MEDS: ASCORBIC ACID 500 MG TABLET (FP) PO SCH ×2 (09:09→22:21)
[2021-01-05] MEDS: BUDESONIDE/FORMETEROL FUMARATE 160/4.5 mcg INHALER IH SCH ×2 (10:48→22:26)
[2021-01-05 10:53] LABS: ANISOCYTOSIS 1+; MACROCYTOSIS 0; PLATELET ESTIMATE NORMAL
[2021-01-05] MEDS: ACETAMINOPHEN 650 MG/20.3 ML ORAL SOLUTION (CUPS) PO PRN (12:37)
[2021-01-05 14:32] LABS: PH,URINE 5.5 (5.0-8.0); URINE APPEARANCE CLOUDY; URINE BILIRUBIN NEGATIVE (NEGATIVE); URINE COLOR DK YELLOW; URINE GLUCOSE (UA) NEGATIVE (NEGATIVE); URINE KETONE TRACE (NEGATIVE); URINE LEUK ESTERASE NEGATIVE (NEGATIVE); URINE NITRITE NEGATIVE (NEGATIVE); URINE PROTEIN TRACE (NEGATIVE)
[2021-01-05] MEDS ORDERED: ACETAMINOPHEN/CAFFEINE/BUTALBITAL 1 TAB PO ONE (14:42)
[2021-01-05] MEDS ORDERED: PT OWN MED DRAWER 7, Y5N ONE ×2 (17:00→17:06)
[2021-01-05] MEDS: AMINO ACIDS 4.25%/D5W 1,000 ML IV SCH (17:07)
[2021-01-05] MEDS: CHLORHEXIDINE GLUCONATE 4% CLEANSER FOR DECOLONIZATION TP SCH (22:21)
[2021-01-06] MEDS: ALBUTEROL SO4 HFA INHALER IH SCH ×6 (01:30→21:41)
[2021-01-06] MEDS ORDERED: MELATONIN 5 MG TABLETS PO ONE (02:30)
[2021-01-06] MEDS ORDERED: PT OWN MED DRAWER 7, Y5N ONE ×2 (05:55→17:16)
[2021-01-06] MEDS: HEPARIN NA (PORCINE) 5,000 UNITS/ML 1ML VIAL SQ SCH ×3 (06:09→21:41)
[2021-01-06] MEDS: AMPICILLIN NA/SULBACTAM NA 3 GM in SODIUM CHLORIDE 100 ML IVPB SCH ×3 (06:10→17:17)
[2021-01-06 06:45] LABS: HEMATOCRIT 39.5 % (32.4-45.2); HEMOGLOBIN 13.2 GM/dL (10.7-15.3); MCH 29.7 pg (25.7-33.7); MCHC 33.5 g/dl (32.0-36.0); MEAN CELL VOLUME 88.9 fl (80-96); MEAN PLT VOLUME 9.4 fl (7.5-11.1); PLATELET COUNT 314 K/MM3 (134-434); RBC 4.44 M/mm3 (3.60-5.2); RDW 14.2 % (11.6-15.6); WHITE BLOOD COUNT 24.3 K/mm3 (4.0-10.0)
[2021-01-06 07:03] LABS: CHLORIDE 100 mmol/L (98-107); SODIUM 137 mmol/L (136-145)
[2021-01-06 07:11] LABS: CALCIUM 8.8 mg/dL (8.5-10.1); SGPT/ALT 39 U/L (13-61)
[2021-01-06 07:12] LABS: ANION GAP 9 MMOL/L (8-16); BLOOD UREA NITROGEN 20.1 mg/dL (7-18); CO2 28 mmol/L (21-32); GLUCOSE,RANDOM 138 mg/dL (74-106); MAGNESIUM 2.6 mg/dL (1.8-2.4)
[2021-01-06 07:13] LABS: BILIRUBIN,TOTAL 0.5 mg/dL (0.2-1); LDH 506 U/L (84-246)
[2021-01-06 07:14] LABS: ALK PHOS 102 U/L (45-117); SGOT/AST 22 U/L (15-37)
[2021-01-06 07:15] LABS: CREATININE 0.6 mg/dL (0.55-1.3)
[2021-01-06] MEDS: DEXAMETHASONE SOD PHOSPHATE 4 MG/1 ML VIAL IVPUSH SCH ×2 (10:18→21:41)
[2021-01-06] MEDS: CHOLECALCIFEROL (VIT D3) 1,000 UNIT (25 MCG) TABLET PO SCH (10:18)
[2021-01-06] MEDS: ASCORBIC ACID 500 MG TABLET (FP) PO SCH ×2 (10:18→21:42)
[2021-01-06] MEDS: ZINC SULFATE 220 MG CAPSULE (FP) PO SCH (10:18)
[2021-01-06] MEDS: FAMOTIDINE 20 MG TABLET PO SCH (10:18)
[2021-01-06] MEDS: BUDESONIDE/FORMETEROL FUMARATE 160/4.5 mcg INHALER IH SCH ×2 (10:19→21:42)
[2021-01-06] MEDS: AMINO ACIDS 4.25%/D5W 1,000 ML IV SCH (17:05)
[2021-01-06] MEDS: ACETAMINOPHEN 650 MG/20.3 ML ORAL SOLUTION (CUPS) PO PRN (17:16)
[2021-01-06] MEDS: CHLORHEXIDINE GLUCONATE 4% CLEANSER FOR DECOLONIZATION TP SCH (21:42)
[2021-01-07] MEDS: AMPICILLIN NA/SULBACTAM NA 3 GM in SODIUM CHLORIDE 100 ML IVPB SCH ×2 (01:49→11:04)
[2021-01-07] MEDS: ALBUTEROL SO4 HFA INHALER IH SCH ×4 (01:49→21:39)
[2021-01-07] MEDS: HEPARIN NA (PORCINE) 5,000 UNITS/ML 1ML VIAL SQ SCH ×3 (05:59→21:40)
[2021-01-07 07:02] LABS: HEMATOCRIT 39.6 % (32.4-45.2); MCH 29.6 pg (25.7-33.7); MEAN CELL VOLUME 89.7 fl (80-96); MEAN PLT VOLUME 9.7 fl (7.5-11.1); PLATELET COUNT 287 K/MM3 (134-434); RBC 4.41 M/mm3 (3.60-5.2); RDW 14.4 % (11.6-15.6); WHITE BLOOD COUNT 25.5 K/mm3 (4.0-10.0)
[2021-01-07 07:23] LABS: ALBUMIN 2.8 g/dl (3.4-5.0); CALCIUM 8.5 mg/dL (8.5-10.1)
[2021-01-07 07:24] LABS: BLOOD UREA NITROGEN 22.1 mg/dL (7-18); MAGNESIUM 2.6 mg/dL (1.8-2.4)
[2021-01-07 07:26] LABS: CREATININE 0.5 mg/dL (0.55-1.3)
[2021-01-07 07:28] LABS: BILIRUBIN,TOTAL 0.6 mg/dL (0.2-1); TOT PROT 5.8 g/dl (6.4-8.2)
[2021-01-07] MEDS: ZINC SULFATE 220 MG CAPSULE (FP) PO SCH (11:03)
[2021-01-07] MEDS: DEXAMETHASONE SOD PHOSPHATE 4 MG/1 ML VIAL IVPUSH SCH ×2 (11:03→21:40)
[2021-01-07] MEDS: FAMOTIDINE 20 MG TABLET PO SCH (11:04)
[2021-01-07] MEDS: ASCORBIC ACID 500 MG TABLET (FP) PO SCH ×2 (11:04→21:41)
[2021-01-07] MEDS: BUDESONIDE/FORMETEROL FUMARATE 160/4.5 mcg INHALER IH SCH ×2 (11:04→21:41)
[2021-01-07] MEDS: CHOLECALCIFEROL (VIT D3) 1,000 UNIT (25 MCG) TABLET PO SCH (11:04)
[2021-01-07] MEDS ORDERED: PT OWN MED DRAWER 7, Y5N ONE (17:56)
[2021-01-07] MEDS ORDERED: SODIUM CHLORIDE FOR INHALATION 3 ML VIAL.NEB IH PRN (19:11)
[2021-01-07] MEDS ORDERED: TRIMETHOBENZAMIDE HCL 300 MG CAPSULE PO PRN (19:11)
[2021-01-07] MEDS ORDERED: CHLORHEXIDINE GLUCONATE 4% CLEANSER FOR DECOLONIZATION TP SCH (22:00)
[2021-01-08] MEDS ORDERED: SODIUM CHLORIDE NASAL SPRAY 44 ML BOTTLE NS PRN ×2 (00:02→22:55)
[2021-01-08] MEDS: ACETAMINOPHEN 650 MG/20.3 ML ORAL SOLUTION (CUPS) PO PRN ×2 (01:16→22:07)
[2021-01-08] MEDS ORDERED: PT OWN MED DRAWER 7, Y5N ONE ×2 (02:21→22:13)
[2021-01-08] MEDS: ALBUTEROL SO4 HFA INHALER IH SCH ×6 (02:37→21:53)
[2021-01-08] MEDS: HEPARIN NA (PORCINE) 5,000 UNITS/ML 1ML VIAL SQ SCH ×3 (06:08→21:53)
[2021-01-08] MEDS: BUDESONIDE/FORMETEROL FUMARATE 160/4.5 mcg INHALER IH SCH ×2 (09:15→21:53)
[2021-01-08] MEDS: ASCORBIC ACID 500 MG TABLET (FP) PO SCH ×2 (09:15→21:53)
[2021-01-08] MEDS: DEXAMETHASONE SOD PHOSPHATE 4 MG/1 ML VIAL IVPUSH SCH ×2 (09:15→21:53)
[2021-01-08] MEDS ORDERED: CHOLECALCIFEROL (VIT D3) 1,000 UNIT (25 MCG) TABLET PO SCH (10:00)
[2021-01-08] MEDS ORDERED: ZINC SULFATE 220 MG CAPSULE (FP) PO SCH (10:00)
[2021-01-08] MEDS ORDERED: FAMOTIDINE 20 MG TABLET PO SCH (10:00)
[2021-01-08] MEDS ORDERED: clonazePAM 0.5 MG TABLET PO ONE (10:30)
[2021-01-08] MEDS: MUPIROCIN 2% TOPICAL OINTMENT FOR DECOLONIZATION NS SCH ×2 (17:44→21:53)
[2021-01-08] MEDS: CHLORHEXIDINE GLUCONATE 4% CLEANSER FOR DECOLONIZATION TP SCH (21:53)
[2021-01-08] MEDS ORDERED: SODIUM CHLORIDE FOR INHALATION 3 ML VIAL.NEB IH PRN ×2 (22:55→22:59)
[2021-01-08] MEDS ORDERED: ACETAMINOPHEN 650 MG/20.3 ML ORAL SOLUTION (CUPS) PO PRN (22:55)
[2021-01-08] MEDS ORDERED: TRIMETHOBENZAMIDE HCL 300 MG CAPSULE PO PRN (22:55)
[2021-01-09] MEDS ORDERED: clonazePAM 0.5 MG TABLET PO ONE (00:46)
[2021-01-09] MEDS: ALBUTEROL SO4 HFA INHALER IH SCH ×6 (02:00→22:31)
[2021-01-09] MEDS: HEPARIN NA (PORCINE) 5,000 UNITS/ML 1ML VIAL SQ SCH ×3 (06:08→22:31)
[2021-01-09 07:16] LABS: BASO % 0.2 % (0-2.0); EOS % 0.3 % (0-4.5); HEMATOCRIT 39.5 % (32.4-45.2); HEMOGLOBIN 13.2 GM/dL (10.7-15.3); LYMPH % 3.8 % (8-40); MCH 29.9 pg (25.7-33.7); MCHC 33.4 g/dl (32.0-36.0); MEAN CELL VOLUME 89.4 fl (80-96); MEAN PLT VOLUME 9.5 fl (7.5-11.1); MONO % 4.6 % (3.8-10.2); NEUT % 91.1 % (42.8-82.8); PLATELET COUNT 261 K/MM3 (134-434); RBC 4.42 M/mm3 (3.60-5.2); RDW 14.4 % (11.6-15.6); WHITE BLOOD COUNT 25.6 K/mm3 (4.0-10.0)
[2021-01-09 07:48] LABS: CHLORIDE 102 mmol/L (98-107); SODIUM 137 mmol/L (136-145)
[2021-01-09 07:49] LABS: CALCIUM 8.9 mg/dL (8.5-10.1)
[2021-01-09 07:50] LABS: BLOOD UREA NITROGEN 24.9 mg/dL (7-18); GLUCOSE,RANDOM 114 mg/dL (74-106); MAGNESIUM 2.7 mg/dL (1.8-2.4)
[2021-01-09 07:52] LABS: ANION GAP 9 MMOL/L (8-16); CO2 26 mmol/L (21-32)
[2021-01-09 07:53] LABS: CREATININE 0.5 mg/dL (0.55-1.3); PHOSPHOROUS 4.5 mg/dL (2.5-4.9)
[2021-01-09 07:55] LABS: BILIRUBIN,TOTAL 0.6 mg/dL (0.2-1); SGOT/AST 22 U/L (15-37); SGPT/ALT 40 U/L (13-61); TOT PROT 5.8 g/dl (6.4-8.2)
[2021-01-09 07:56] LABS: ALK PHOS 80 U/L (45-117); LDH 439 U/L (84-246)
[2021-01-09 09:31] LABS: ANISOCYTOSIS 0; MACROCYTOSIS 0
[2021-01-09 09:32] LABS: PLATELET ESTIMATE NORMAL
[2021-01-09] MEDS ORDERED: PT OWN MED DRAWER 7, Y5N ONE (10:06)
[2021-01-09] MEDS: ZINC SULFATE 220 MG CAPSULE (FP) PO SCH (10:11)
[2021-01-09] MEDS: ASCORBIC ACID 500 MG TABLET (FP) PO SCH ×2 (10:11→22:31)
[2021-01-09] MEDS: FAMOTIDINE 20 MG TABLET PO SCH (10:11)
[2021-01-09] MEDS: DEXAMETHASONE SOD PHOSPHATE 4 MG/1 ML VIAL IVPUSH SCH ×2 (10:11→22:31)
[2021-01-09] MEDS: MUPIROCIN 2% TOPICAL OINTMENT FOR DECOLONIZATION NS SCH ×2 (10:12→22:31)
[2021-01-09] MEDS: CHOLECALCIFEROL (VIT D3) 1,000 UNIT (25 MCG) TABLET PO SCH (10:12)
[2021-01-09] MEDS: BUDESONIDE/FORMETEROL FUMARATE 160/4.5 mcg INHALER IH SCH ×2 (10:57→22:31)
[2021-01-09] MEDS ORDERED: FUROSEMIDE 40 MG/4 ML INJECTABLE VIAL IVPUSH ONE (11:30)
[2021-01-09] MEDS: clonazePAM 0.25 MG ODT TABLETS PO PRN (14:29)
[2021-01-09] MEDS: CHLORHEXIDINE GLUCONATE 4% CLEANSER FOR DECOLONIZATION TP SCH (22:31)
[2021-01-09] MEDS: guaiFENesin/CODEINE 10 ML UNIT-DOSE CUPS PO PRN (23:30)
[2021-01-10] MEDS: ALBUTEROL SO4 HFA INHALER IH SCH ×6 (02:04→22:01)
[2021-01-10] MEDS: clonazePAM 0.25 MG ODT TABLETS PO PRN ×2 (02:15→09:26)
[2021-01-10 04:07] LABS: SARS-CoV-2 NAA Not Detected (Not Detected)
[2021-01-10] MEDS: HEPARIN NA (PORCINE) 5,000 UNITS/ML 1ML VIAL SQ SCH ×3 (06:20→22:01)
[2021-01-10 07:03] LABS: BASO % 0.2 % (0-2.0); EOS % 0.4 % (0-4.5); HEMATOCRIT 41.6 % (32.4-45.2); LYMPH % 3.5 % (8-40); MCH 29.9 pg (25.7-33.7); MCHC 33.7 g/dl (32.0-36.0); MEAN CELL VOLUME 88.9 fl (80-96); MEAN PLT VOLUME 9.9 fl (7.5-11.1); NEUT % 91.9 % (42.8-82.8); PLATELET COUNT 249 K/MM3 (134-434); RBC 4.68 M/mm3 (3.60-5.2); RDW 14.9 % (11.6-15.6); WHITE BLOOD COUNT 26.6 K/mm3 (4.0-10.0)
[2021-01-10 07:25] LABS: CALCIUM 9.3 mg/dL (8.5-10.1)
[2021-01-10 07:26] LABS: ALBUMIN 3.2 g/dl (3.4-5.0); MAGNESIUM 2.8 mg/dL (1.8-2.4)
[2021-01-10 07:27] LABS: BLOOD UREA NITROGEN 32.9 mg/dL (7-18)
[2021-01-10 07:29] LABS: CREATININE 0.6 mg/dL (0.55-1.3)
[2021-01-10 07:30] LABS: PHOSPHOROUS 5.4 mg/dL (2.5-4.9)
[2021-01-10 07:31] LABS: BILIRUBIN,TOTAL 0.6 mg/dL (0.2-1); TOT PROT 6.4 g/dl (6.4-8.2)
[2021-01-10] MEDS ORDERED: PT OWN MED DRAWER 7, Y5N ONE (09:16)
[2021-01-10] MEDS: DEXAMETHASONE SOD PHOSPHATE 4 MG/1 ML VIAL IVPUSH SCH ×2 (09:26→22:01)
[2021-01-10] MEDS: FAMOTIDINE 20 MG TABLET PO SCH (09:26)
[2021-01-10] MEDS: BUDESONIDE/FORMETEROL FUMARATE 160/4.5 mcg INHALER IH SCH ×2 (09:26→22:01)
[2021-01-10] MEDS: ASCORBIC ACID 500 MG TABLET (FP) PO SCH ×2 (09:26→22:01)
[2021-01-10] MEDS: CHOLECALCIFEROL (VIT D3) 1,000 UNIT (25 MCG) TABLET PO SCH (09:26)
[2021-01-10] MEDS: ZINC SULFATE 220 MG CAPSULE (FP) PO SCH (09:26)
[2021-01-10] MEDS: MUPIROCIN 2% TOPICAL OINTMENT FOR DECOLONIZATION NS SCH ×2 (09:27→22:01)
[2021-01-10] MEDS: guaiFENesin/CODEINE 10 ML UNIT-DOSE CUPS PO PRN ×2 (09:49→22:01)
[2021-01-10 10:09] LABS: ANISOCYTOSIS 0; MACROCYTOSIS 0; PLATELET ESTIMATE NORMAL
[2021-01-10] MEDS ORDERED: LORazepam 2 MG/ML SDV VIAL IVPB STA (13:45)
[2021-01-10] MEDS ORDERED: LORazepam 2 MG/ML SDV VIAL ONE (13:46)
[2021-01-10] MEDS: clonazePAM 0.5 MG TABLET PO PRN (22:01)
[2021-01-10] MEDS: CHLORHEXIDINE GLUCONATE 4% CLEANSER FOR DECOLONIZATION TP SCH (22:01)
[2021-01-11] MEDS: ALBUTEROL SO4 HFA INHALER IH SCH ×6 (03:04→21:53)
[2021-01-11] MEDS: HEPARIN NA (PORCINE) 5,000 UNITS/ML 1ML VIAL SQ SCH ×3 (06:08→21:53)
[2021-01-11 06:30] LABS: HEMATOCRIT 40.3 % (32.4-45.2); HEMOGLOBIN 13.3 GM/dL (10.7-15.3); MCH 29.9 pg (25.7-33.7); MCHC 32.9 g/dl (32.0-36.0); MEAN PLT VOLUME 10.4 fl (7.5-11.1); PLATELET COUNT 231 K/MM3 (134-434); RBC 4.43 M/mm3 (3.60-5.2); RDW 14.7 % (11.6-15.6); WHITE BLOOD COUNT 25.8 K/mm3 (4.0-10.0)
[2021-01-11 06:33] LABS: CALCIUM 9.3 mg/dL (8.5-10.1)
[2021-01-11 06:34] LABS: BLOOD UREA NITROGEN 27.9 mg/dL (7-18); MAGNESIUM 2.9 mg/dL (1.8-2.4)
[2021-01-11 06:37] LABS: CREATININE 0.6 mg/dL (0.55-1.3)
[2021-01-11 06:38] LABS: PHOSPHOROUS 5.3 mg/dL (2.5-4.9)
[2021-01-11] MEDS: CHOLECALCIFEROL (VIT D3) 1,000 UNIT (25 MCG) TABLET PO SCH (09:03)
[2021-01-11] MEDS: FAMOTIDINE 20 MG TABLET PO SCH (09:04)
[2021-01-11] MEDS: MUPIROCIN 2% TOPICAL OINTMENT FOR DECOLONIZATION NS SCH ×2 (09:04→21:53)
[2021-01-11] MEDS: BUDESONIDE/FORMETEROL FUMARATE 160/4.5 mcg INHALER IH SCH ×2 (09:04→21:54)
[2021-01-11] MEDS: ASCORBIC ACID 500 MG TABLET (FP) PO SCH ×2 (09:04→21:54)
[2021-01-11] MEDS: ZINC SULFATE 220 MG CAPSULE (FP) PO SCH (09:04)
[2021-01-11] MEDS: DEXAMETHASONE SOD PHOSPHATE 4 MG/1 ML VIAL IVPUSH SCH ×2 (09:04→21:53)
[2021-01-11] MEDS: guaiFENesin/CODEINE 10 ML UNIT-DOSE CUPS PO PRN ×2 (09:28→21:58)
[2021-01-11] MEDS: CHLORHEXIDINE GLUCONATE 4% CLEANSER FOR DECOLONIZATION TP SCH (21:54)
[2021-01-11] MEDS: clonazePAM 0.5 MG TABLET PO PRN (21:58)
[2021-01-12] MEDS: ALBUTEROL SO4 HFA INHALER IH SCH ×6 (04:34→21:53)
[2021-01-12 06:42] LABS: BASO % 0.2 % (0-2.0); EOS % 3.7 % (0-4.5); HEMATOCRIT 38.1 % (32.4-45.2); HEMOGLOBIN 12.9 GM/dL (10.7-15.3); LYMPH % 6.4 % (8-40); MCH 30.3 pg (25.7-33.7); MCHC 33.8 g/dl (32.0-36.0); MEAN CELL VOLUME 89.5 fl (80-96); MEAN PLT VOLUME 9.3 fl (7.5-11.1); NEUT % 82.7 % (42.8-82.8); PLATELET COUNT 194 K/MM3 (134-434); RBC 4.25 M/mm3 (3.60-5.2); RDW 15.6 % (11.6-15.6); WHITE BLOOD COUNT 23.7 K/mm3 (4.0-10.0)
[2021-01-12 06:50] LABS: ALBUMIN 2.8 g/dl (3.4-5.0); BLOOD UREA NITROGEN 23.5 mg/dL (7-18); CALCIUM 8.5 mg/dL (8.5-10.1); MAGNESIUM 2.5 mg/dL (1.8-2.4)
[2021-01-12 06:54] LABS: CREATININE 0.5 mg/dL (0.55-1.3); PHOSPHOROUS 4.6 mg/dL (2.5-4.9)
[2021-01-12 06:55] LABS: BILIRUBIN,TOTAL 0.7 mg/dL (0.2-1); TOT PROT 5.7 g/dl (6.4-8.2)
[2021-01-12] MEDS: HEPARIN NA (PORCINE) 5,000 UNITS/ML 1ML VIAL SQ SCH ×3 (07:15→21:52)
[2021-01-12 08:39] LABS: ANISOCYTOSIS 2+; MACROCYTOSIS 0; PLATELET ESTIMATE NORMAL
[2021-01-12] MEDS: ZINC SULFATE 220 MG CAPSULE (FP) PO SCH (09:17)
[2021-01-12] MEDS: CHOLECALCIFEROL (VIT D3) 1,000 UNIT (25 MCG) TABLET PO SCH (09:18)
[2021-01-12] MEDS: MUPIROCIN 2% TOPICAL OINTMENT FOR DECOLONIZATION NS SCH ×2 (09:18→21:53)
[2021-01-12] MEDS: ASCORBIC ACID 500 MG TABLET (FP) PO SCH ×2 (09:18→21:52)
[2021-01-12] MEDS: DEXAMETHASONE SOD PHOSPHATE 4 MG/1 ML VIAL IVPUSH SCH ×2 (09:18→21:52)
[2021-01-12] MEDS: FAMOTIDINE 20 MG TABLET PO SCH (09:18)
[2021-01-12] MEDS: BUDESONIDE/FORMETEROL FUMARATE 160/4.5 mcg INHALER IH SCH ×2 (09:18→21:53)
[2021-01-12] MEDS ORDERED: POLYETHYLENE GLYCOL 3350 119 GM BTL PO PRN (12:15)
[2021-01-12] MEDS: guaiFENesin/CODEINE 10 ML UNIT-DOSE CUPS PO PRN (21:52)
[2021-01-12] MEDS: clonazePAM 0.5 MG TABLET PO PRN (21:52)
[2021-01-12] MEDS: CHLORHEXIDINE GLUCONATE 4% CLEANSER FOR DECOLONIZATION TP SCH (21:53)
[2021-01-13] MEDS: ALBUTEROL SO4 HFA INHALER IH SCH ×6 (02:47→22:00)
[2021-01-13] MEDS: HEPARIN NA (PORCINE) 5,000 UNITS/ML 1ML VIAL SQ SCH ×3 (06:26→21:40)
[2021-01-13 06:45] LABS: HEMATOCRIT 37.5 % (32.4-45.2); HEMOGLOBIN 12.7 GM/dL (10.7-15.3); MCH 30.4 pg (25.7-33.7); MCHC 33.8 g/dl (32.0-36.0); MEAN PLT VOLUME 9.5 fl (7.5-11.1); PLATELET COUNT 189 K/MM3 (134-434); RBC 4.16 M/mm3 (3.60-5.2); RDW 15.1 % (11.6-15.6); WHITE BLOOD COUNT 21.8 K/mm3 (4.0-10.0)
[2021-01-13 07:06] LABS: CALCIUM 8.4 mg/dL (8.5-10.1)
[2021-01-13 07:07] LABS: ALBUMIN 2.7 g/dl (3.4-5.0); BLOOD UREA NITROGEN 14.7 mg/dL (7-18)
[2021-01-13 07:10] LABS: CREATININE 0.5 mg/dL (0.55-1.3)
[2021-01-13 07:12] LABS: BILIRUBIN,TOTAL 0.6 mg/dL (0.2-1); TOT PROT 5.8 g/dl (6.4-8.2)
[2021-01-13 08:08] LABS: SARS-CoV-2 NAA Not Detected (Not Detected)
[2021-01-13] MEDS: DEXAMETHASONE SOD PHOSPHATE 4 MG/1 ML VIAL IVPUSH SCH ×2 (09:37→21:40)
[2021-01-13] MEDS: CHOLECALCIFEROL (VIT D3) 1,000 UNIT (25 MCG) TABLET PO SCH (09:37)
[2021-01-13] MEDS: ZINC SULFATE 220 MG CAPSULE (FP) PO SCH (09:37)
[2021-01-13] MEDS: ASCORBIC ACID 500 MG TABLET (FP) PO SCH ×2 (09:38→21:40)
[2021-01-13] MEDS: FAMOTIDINE 20 MG TABLET PO SCH (09:38)
[2021-01-13] MEDS: MUPIROCIN 2% TOPICAL OINTMENT FOR DECOLONIZATION NS SCH (09:39)
[2021-01-13] MEDS: BUDESONIDE/FORMETEROL FUMARATE 160/4.5 mcg INHALER IH SCH ×2 (09:39→21:40)
[2021-01-13] MEDS ORDERED: BUDESONIDE 0.25 MG/2ML INH SUSP VIAL NEB ONE (15:44)
[2021-01-13] MEDS ORDERED: ALBUTEROL SO4 2.5/IPRATROPIUM 0.5 INH SOL 3 ML VIAL.NEB. NEB ONE (15:46)
[2021-01-13] MEDS ORDERED: MORPHINE SULFATE 2 MG/ML VIAL IVPUSH ONE (21:28)
[2021-01-13] MEDS: CHLORHEXIDINE GLUCONATE 4% CLEANSER FOR DECOLONIZATION TP SCH (21:40)
[2021-01-13] MEDS: clonazePAM 0.5 MG TABLET PO PRN (21:40)
[2021-01-13] MEDS: guaiFENesin/CODEINE 10 ML UNIT-DOSE CUPS PO PRN (21:40)
[2021-01-13] MEDS ORDERED: MORPHINE SULFATE 2 MG/ML VIAL ONE (21:52)
[2021-01-14] MEDS ORDERED: MORPHINE SULFATE 2 MG/ML VIAL IVPUSH ONE ×2 (01:00→21:13)
[2021-01-14] MEDS: ALBUTEROL SO4 HFA INHALER IH SCH ×6 (01:00→22:44)
[2021-01-14] MEDS: HEPARIN NA (PORCINE) 5,000 UNITS/ML 1ML VIAL SQ SCH ×3 (06:20→22:43)
[2021-01-14 06:56] LABS: HEMATOCRIT 38.3 % (32.4-45.2); HEMOGLOBIN 12.9 GM/dL (10.7-15.3); MCH 30.6 pg (25.7-33.7); MCHC 33.5 g/dl (32.0-36.0); MEAN CELL VOLUME 91.3 fl (80-96); MEAN PLT VOLUME 9.7 fl (7.5-11.1); PLATELET COUNT 190 K/MM3 (134-434); RDW 16.2 % (11.6-15.6); WHITE BLOOD COUNT 24.8 K/mm3 (4.0-10.0)
[2021-01-14 07:22] LABS: ALBUMIN 2.8 g/dl (3.4-5.0); BLOOD UREA NITROGEN 19.7 mg/dL (7-18)
[2021-01-14 07:25] LABS: CREATININE 0.6 mg/dL (0.55-1.3)
[2021-01-14 07:27] LABS: BILIRUBIN,TOTAL 0.4 mg/dL (0.2-1); TOT PROT 6.1 g/dl (6.4-8.2)
[2021-01-14] MEDS ORDERED: PT OWN MED DRAWER 7, Y5N ONE (10:13)
[2021-01-14] MEDS: DEXAMETHASONE SOD PHOSPHATE 4 MG/1 ML VIAL IVPUSH SCH ×2 (10:14→22:43)
[2021-01-14] MEDS: BUDESONIDE/FORMETEROL FUMARATE 160/4.5 mcg INHALER IH SCH ×2 (10:15→22:44)
[2021-01-14] MEDS: clonazePAM 0.5 MG TABLET PO PRN ×2 (10:15→22:43)
[2021-01-14] MEDS: ZINC SULFATE 220 MG CAPSULE (FP) PO SCH (10:15)
[2021-01-14] MEDS: FAMOTIDINE 20 MG TABLET PO SCH (10:15)
[2021-01-14] MEDS: CHOLECALCIFEROL (VIT D3) 1,000 UNIT (25 MCG) TABLET PO SCH (10:15)
[2021-01-14] MEDS: ASCORBIC ACID 500 MG TABLET (FP) PO SCH ×2 (10:15→22:44)
[2021-01-14] MEDS: ALBUTEROL SO4 2.5/IPRATROPIUM 0.5 INH SOL 3 ML VIAL.NEB. NEB PRN (11:40)
[2021-01-14] MEDS ORDERED: POLYETHYLENE GLYCOL 3350 119 GM BTL PO PRN (12:26)
[2021-01-14] MEDS ORDERED: guaiFENesin/CODEINE 10 ML UNIT-DOSE CUPS PO PRN (12:26)
[2021-01-14] MEDS ORDERED: TRIMETHOBENZAMIDE HCL 300 MG CAPSULE PO PRN (12:26)
[2021-01-14] MEDS ORDERED: MORPHINE SULFATE 2 MG/ML VIAL ONE ×2 (21:10→23:25)
[2021-01-14] MEDS: CHLORHEXIDINE GLUCONATE 4% CLEANSER FOR DECOLONIZATION TP SCH (22:44)
[2021-01-14] MEDS: MORPHINE SULFATE 2 MG/ML VIAL IVPUSH PRN (23:00)
[2021-01-15] MEDS: ALBUTEROL SO4 HFA INHALER IH SCH ×6 (01:45→22:24)
[2021-01-15] MEDS: MORPHINE SULFATE 2 MG/ML VIAL IVPUSH PRN ×2 (05:22→21:00)
[2021-01-15] MEDS: guaiFENesin/CODEINE 10 ML UNIT-DOSE CUPS PO SCH ×3 (05:25→20:43)
[2021-01-15] MEDS: HEPARIN NA (PORCINE) 5,000 UNITS/ML 1ML VIAL SQ SCH ×3 (05:42→22:24)
[2021-01-15] MEDS: ZINC SULFATE 220 MG CAPSULE (FP) PO SCH (09:10)
[2021-01-15] MEDS: CHOLECALCIFEROL (VIT D3) 1,000 UNIT (25 MCG) TABLET PO SCH (09:10)
[2021-01-15] MEDS: FAMOTIDINE 20 MG TABLET PO SCH (09:10)
[2021-01-15] MEDS: ASCORBIC ACID 500 MG TABLET (FP) PO SCH ×2 (09:12→22:24)
[2021-01-15] MEDS: DEXAMETHASONE SOD PHOSPHATE 4 MG/1 ML VIAL IVPUSH SCH ×2 (09:25→22:24)
[2021-01-15] MEDS: BUDESONIDE/FORMETEROL FUMARATE 160/4.5 mcg INHALER IH SCH ×2 (10:00→22:24)
[2021-01-15] MEDS: clonazePAM 0.5 MG TABLET PO PRN ×2 (13:26→22:24)
[2021-01-15] MEDS ORDERED: LORazepam 2 MG/ML SDV VIAL IVPUSH ONE (20:24)
[2021-01-15] MEDS ORDERED: LORazepam 2 MG/ML SDV VIAL ONE (20:27)
[2021-01-15] MEDS: CHLORHEXIDINE GLUCONATE 4% CLEANSER FOR DECOLONIZATION TP SCH (22:24)
[2021-01-16] MEDS: ALBUTEROL SO4 HFA INHALER IH SCH ×6 (00:46→22:00)
[2021-01-16] MEDS: SODIUM CHLORIDE NASAL SPRAY 44 ML BOTTLE NS PRN (02:25)
[2021-01-16] MEDS: MORPHINE SULFATE 2 MG/ML VIAL IVPUSH PRN ×2 (06:10→20:30)
[2021-01-16] MEDS: HEPARIN NA (PORCINE) 5,000 UNITS/ML 1ML VIAL SQ SCH ×2 (06:31→14:29)
[2021-01-16] MEDS: guaiFENesin/CODEINE 10 ML UNIT-DOSE CUPS PO SCH ×3 (06:31→22:00)
[2021-01-16 07:13] LABS: HEMATOCRIT 38.5 % (32.4-45.2); HEMOGLOBIN 12.9 GM/dL (10.7-15.3); MCH 30.7 pg (25.7-33.7); MCHC 33.6 g/dl (32.0-36.0); MEAN CELL VOLUME 91.4 fl (80-96); MEAN PLT VOLUME 9.1 fl (7.5-11.1); PLATELET COUNT 194 K/MM3 (134-434); RBC 4.22 M/mm3 (3.60-5.2); RDW 15.8 % (11.6-15.6); WHITE BLOOD COUNT 21.7 K/mm3 (4.0-10.0)
[2021-01-16 07:21] LABS: ALBUMIN 2.8 g/dl (3.4-5.0); CALCIUM 9.1 mg/dL (8.5-10.1)
[2021-01-16 07:23] LABS: BLOOD UREA NITROGEN 18.8 mg/dL (7-18); MAGNESIUM 2.7 mg/dL (1.8-2.4)
[2021-01-16 07:26] LABS: CREATININE 0.5 mg/dL (0.55-1.3); PHOSPHOROUS 4.7 mg/dL (2.5-4.9)
[2021-01-16 07:27] LABS: BILIRUBIN,TOTAL 0.4 mg/dL (0.2-1); TOT PROT 6.2 g/dl (6.4-8.2)
[2021-01-16] MEDS: DEXAMETHASONE SOD PHOSPHATE 4 MG/1 ML VIAL IVPUSH SCH ×2 (09:40→22:00)
[2021-01-16] MEDS: CHOLECALCIFEROL (VIT D3) 1,000 UNIT (25 MCG) TABLET PO SCH (09:44)
[2021-01-16] MEDS: FAMOTIDINE 20 MG TABLET PO SCH (09:45)
[2021-01-16] MEDS: ZINC SULFATE 220 MG CAPSULE (FP) PO SCH (09:45)
[2021-01-16] MEDS: ASCORBIC ACID 500 MG TABLET (FP) PO SCH ×2 (09:45→22:00)
[2021-01-16] MEDS: BUDESONIDE/FORMETEROL FUMARATE 160/4.5 mcg INHALER IH SCH ×2 (09:46→22:00)
[2021-01-16] MEDS ORDERED: LORazepam 2 MG/ML SDV VIAL IVPUSH ONE (21:33)
[2021-01-16] MEDS: clonazePAM 0.5 MG TABLET PO PRN (22:00)
[2021-01-17] MEDS: CHLORHEXIDINE GLUCONATE 4% CLEANSER FOR DECOLONIZATION TP SCH ×2 (00:29→21:52)
[2021-01-17] MEDS: HEPARIN NA (PORCINE) 5,000 UNITS/ML 1ML VIAL SQ SCH ×4 (00:29→21:52)
[2021-01-17] MEDS: ALBUTEROL SO4 HFA INHALER IH SCH ×3 (01:47→21:52)
[2021-01-17] MEDS ORDERED: LORazepam 2 MG/ML SDV VIAL ONE (02:36)
[2021-01-17] MEDS: guaiFENesin/CODEINE 10 ML UNIT-DOSE CUPS PO SCH ×3 (07:32→21:51)
[2021-01-17] MEDS: ASCORBIC ACID 500 MG TABLET (FP) PO SCH ×2 (09:43→21:53)
[2021-01-17] MEDS: CHOLECALCIFEROL (VIT D3) 1,000 UNIT (25 MCG) TABLET PO SCH (09:43)
[2021-01-17] MEDS: DEXAMETHASONE SOD PHOSPHATE 4 MG/1 ML VIAL IVPUSH SCH ×2 (09:43→21:52)
[2021-01-17] MEDS: ZINC SULFATE 220 MG CAPSULE (FP) PO SCH (09:43)
[2021-01-17] MEDS: clonazePAM 0.5 MG TABLET PO PRN ×2 (09:43→21:53)
[2021-01-17] MEDS: FAMOTIDINE 20 MG TABLET PO SCH (09:43)
[2021-01-17] MEDS: BUDESONIDE/FORMETEROL FUMARATE 160/4.5 mcg INHALER IH SCH ×2 (13:00→21:52)
[2021-01-17] MEDS: SODIUM CHLORIDE NASAL SPRAY 44 ML BOTTLE NS PRN (16:34)
[2021-01-17] MEDS: ALBUTEROL SO4 2.5/IPRATROPIUM 0.5 INH SOL 3 ML VIAL.NEB. NEB PRN (21:48)
[2021-01-18] MEDS: ALBUTEROL SO4 HFA INHALER IH SCH ×8 (01:57→21:16)
[2021-01-18] MEDS: guaiFENesin/CODEINE 10 ML UNIT-DOSE CUPS PO SCH ×3 (05:57→21:09)
[2021-01-18] MEDS: HEPARIN NA (PORCINE) 5,000 UNITS/ML 1ML VIAL SQ SCH ×3 (06:05→21:12)
[2021-01-18] MEDS: ALBUTEROL SO4 2.5/IPRATROPIUM 0.5 INH SOL 3 ML VIAL.NEB. NEB PRN (08:31)
[2021-01-18] MEDS: CHOLECALCIFEROL (VIT D3) 1,000 UNIT (25 MCG) TABLET PO SCH (10:42)
[2021-01-18] MEDS: ASCORBIC ACID 500 MG TABLET (FP) PO SCH ×2 (10:42→21:09)
[2021-01-18] MEDS: FAMOTIDINE 20 MG TABLET PO SCH (10:42)
[2021-01-18] MEDS: ZINC SULFATE 220 MG CAPSULE (FP) PO SCH (10:42)
[2021-01-18] MEDS: DEXAMETHASONE SOD PHOSPHATE 4 MG/1 ML VIAL IVPUSH SCH ×2 (10:42→21:11)
[2021-01-18] MEDS: BUDESONIDE/FORMETEROL FUMARATE 160/4.5 mcg INHALER IH SCH ×2 (10:43→21:16)
[2021-01-18] MEDS: MORPHINE SULFATE 2 MG/ML VIAL IVPUSH PRN (19:49)
[2021-01-18] MEDS: clonazePAM 0.5 MG TABLET PO PRN (21:14)
[2021-01-18] MEDS: CHLORHEXIDINE GLUCONATE 4% CLEANSER FOR DECOLONIZATION TP SCH (21:16)
[2021-01-19] MEDS: ALBUTEROL SO4 HFA INHALER IH SCH ×3 (01:21→10:05)
[2021-01-19] MEDS: guaiFENesin/CODEINE 10 ML UNIT-DOSE CUPS PO SCH ×3 (06:12→21:59)
[2021-01-19] MEDS: HEPARIN NA (PORCINE) 5,000 UNITS/ML 1ML VIAL SQ SCH ×3 (06:12→21:59)
[2021-01-19] MEDS: DEXAMETHASONE SOD PHOSPHATE 4 MG/1 ML VIAL IVPUSH SCH ×2 (10:05→21:59)
[2021-01-19] MEDS: FAMOTIDINE 20 MG TABLET PO SCH (10:06)
[2021-01-19] MEDS: CHOLECALCIFEROL (VIT D3) 1,000 UNIT (25 MCG) TABLET PO SCH (10:06)
[2021-01-19] MEDS: ZINC SULFATE 220 MG CAPSULE (FP) PO SCH (10:06)
[2021-01-19] MEDS: BUDESONIDE/FORMETEROL FUMARATE 160/4.5 mcg INHALER IH SCH (10:08)
[2021-01-19] MEDS: ASCORBIC ACID 500 MG TABLET (FP) PO SCH ×2 (10:17→21:59)
[2021-01-19] MEDS: ALBUTEROL SO4 2.5/IPRATROPIUM 0.5 INH SOL 3 ML VIAL.NEB. NEB SCH ×3 (11:40→20:30)
[2021-01-19] MEDS ORDERED: ALBUTEROL SO4 0.083% IH SOL 2.5 MG/3 ML VIAL.NEB. NEB PRN (11:44)
[2021-01-19] MEDS: BUDESONIDE 0.5 MG/2 ML INH SUSP VIAL NEB SCH ×2 (15:04→20:30)
[2021-01-19] MEDS ORDERED: clonazePAM 0.5 MG TABLET PO ONE (20:41)
[2021-01-19] MEDS ORDERED: MORPHINE SULFATE 2 MG/ML VIAL IVPUSH ONE (20:43)
[2021-01-19] MEDS: CHLORHEXIDINE GLUCONATE 4% CLEANSER FOR DECOLONIZATION TP SCH (22:00)
[2021-01-20] MEDS: guaiFENesin/CODEINE 10 ML UNIT-DOSE CUPS PO SCH ×2 (05:42→15:16)
[2021-01-20] MEDS: HEPARIN NA (PORCINE) 5,000 UNITS/ML 1ML VIAL SQ SCH ×3 (05:42→22:05)
[2021-01-20 06:57] LABS: HEMATOCRIT 38.5 % (32.4-45.2); HEMOGLOBIN 12.7 GM/dL (10.7-15.3); MCH 30.5 pg (25.7-33.7); MCHC 33.1 g/dl (32.0-36.0); MEAN CELL VOLUME 92.2 fl (80-96); MEAN PLT VOLUME 8.8 fl (7.5-11.1); PLATELET COUNT 180 K/MM3 (134-434); RBC 4.18 M/mm3 (3.60-5.2); RDW 16.9 % (11.6-15.6); WHITE BLOOD COUNT 21.9 K/mm3 (4.0-10.0)
[2021-01-20 07:41] LABS: ALBUMIN 2.8 g/dl (3.4-5.0); BILIRUBIN,TOTAL 0.5 mg/dL (0.2-1); BLOOD UREA NITROGEN 18.6 mg/dL (7-18); CALCIUM 8.7 mg/dL (8.5-10.1); CREATININE 0.5 mg/dL (0.55-1.3); MAGNESIUM 2.6 mg/dL (1.8-2.4); TOT PROT 5.9 g/dl (6.4-8.2)
[2021-01-20] MEDS: ALBUTEROL SO4 2.5/IPRATROPIUM 0.5 INH SOL 3 ML VIAL.NEB. NEB SCH ×3 (08:05→15:44)
[2021-01-20] MEDS: BUDESONIDE 0.5 MG/2 ML INH SUSP VIAL NEB SCH (08:05)
[2021-01-20] MEDS: ASCORBIC ACID 500 MG TABLET (FP) PO SCH ×2 (09:59→22:05)
[2021-01-20] MEDS: FAMOTIDINE 20 MG TABLET PO SCH (09:59)
[2021-01-20] MEDS: ZINC SULFATE 220 MG CAPSULE (FP) PO SCH (09:59)
[2021-01-20] MEDS: DEXAMETHASONE SOD PHOSPHATE 4 MG/1 ML VIAL IVPUSH SCH ×2 (09:59→22:05)
[2021-01-20] MEDS: CHOLECALCIFEROL (VIT D3) 1,000 UNIT (25 MCG) TABLET PO SCH (09:59)
[2021-01-20] MEDS ORDERED: guaiFENesin/CODEINE 10 ML UNIT-DOSE CUPS PO PRN (15:17)
[2021-01-20] MEDS: SENNOSIDES 8.6MG TABLET (FP) PO PRN (20:12)
[2021-01-20] MEDS: ACETAMINOPHEN 650 MG/20.3 ML ORAL SOLUTION (CUPS) PO PRN (20:41)
[2021-01-20] MEDS: CHLORHEXIDINE GLUCONATE 4% CLEANSER FOR DECOLONIZATION TP SCH (22:06)
[2021-01-20 22:17] LABS: CALCIUM 9.2 mg/dL (8.5-10.1)
[2021-01-20 22:18] LABS: BLOOD UREA NITROGEN 20.6 mg/dL (7-18)
[2021-01-20 22:21] LABS: CREATININE 0.6 mg/dL (0.55-1.3)
[2021-01-21] MEDS ORDERED: IBUPROFEN 200 MG TABLET PO ONE (02:05)
[2021-01-21] MEDS: HEPARIN NA (PORCINE) 5,000 UNITS/ML 1ML VIAL SQ SCH (06:19)
[2021-01-21] MEDS: ACETAMINOPHEN 650 MG/20.3 ML ORAL SOLUTION (CUPS) PO PRN ×2 (06:19→21:50)
[2021-01-21] MEDS: BUDESONIDE 0.5 MG/2 ML INH SUSP VIAL NEB SCH ×2 (09:05→20:30)
[2021-01-21] MEDS: ALBUTEROL SO4 2.5/IPRATROPIUM 0.5 INH SOL 3 ML VIAL.NEB. NEB SCH ×3 (09:06→20:30)
[2021-01-21] MEDS: FAMOTIDINE 20 MG TABLET PO SCH (11:57)
[2021-01-21] MEDS: ZINC SULFATE 220 MG CAPSULE (FP) PO SCH (11:57)
[2021-01-21] MEDS: ASCORBIC ACID 500 MG TABLET (FP) PO SCH ×2 (11:57→21:50)
[2021-01-21] MEDS: CHOLECALCIFEROL (VIT D3) 1,000 UNIT (25 MCG) TABLET PO SCH (11:58)
[2021-01-21] MEDS: DEXAMETHASONE SOD PHOSPHATE 4 MG/1 ML VIAL IVPUSH SCH (13:45)
[2021-01-21] MEDS: guaiFENesin/CODEINE 10 ML UNIT-DOSE CUPS PO SCH ×2 (16:47→21:50)
[2021-01-21] MEDS: SENNOSIDES 8.6MG TABLET (FP) PO PRN (20:12)
[2021-01-21] MEDS ORDERED: DEXAMETHASONE SOD PHOSPHATE 10 MG/1 ML VIAL IVPUSH ONE (22:00)
[2021-01-22] MEDS: guaiFENesin/CODEINE 10 ML UNIT-DOSE CUPS PO SCH ×3 (06:13→21:27)
[2021-01-22] MEDS: ACETAMINOPHEN 650 MG/20.3 ML ORAL SOLUTION (CUPS) PO PRN ×2 (06:17→21:26)
[2021-01-22 07:09] LABS: HEMATOCRIT 39.5 % (32.4-45.2); HEMOGLOBIN 12.9 GM/dL (10.7-15.3); MCH 30.2 pg (25.7-33.7); MCHC 32.8 g/dl (32.0-36.0); MEAN CELL VOLUME 92.1 fl (80-96); PLATELET COUNT 189 K/MM3 (134-434); RBC 4.28 M/mm3 (3.60-5.2); RDW 17.1 % (11.6-15.6); WHITE BLOOD COUNT 24.3 K/mm3 (4.0-10.0)
[2021-01-22 07:31] LABS: CALCIUM 8.9 mg/dL (8.5-10.1)
[2021-01-22 07:32] LABS: BLOOD UREA NITROGEN 18.1 mg/dL (7-18)
[2021-01-22 07:35] LABS: CREATININE 0.5 mg/dL (0.55-1.3)
[2021-01-22] MEDS: BUDESONIDE 0.5 MG/2 ML INH SUSP VIAL NEB SCH ×2 (08:15→20:11)
[2021-01-22] MEDS: ALBUTEROL SO4 2.5/IPRATROPIUM 0.5 INH SOL 3 ML VIAL.NEB. NEB SCH ×5 (08:56→21:29)
[2021-01-22] MEDS ORDERED: PT OWN MED DRAWER 7, Y5N ONE (09:45)
[2021-01-22] MEDS: DEXAMETHASONE SOD PHOSPHATE 4 MG/1 ML VIAL IVPUSH SCH ×2 (10:05→21:27)
[2021-01-22] MEDS: ASCORBIC ACID 500 MG TABLET (FP) PO SCH ×2 (10:05→21:26)
[2021-01-22] MEDS: FAMOTIDINE 20 MG TABLET PO SCH (10:05)
[2021-01-22] MEDS: CHOLECALCIFEROL (VIT D3) 1,000 UNIT (25 MCG) TABLET PO SCH (10:05)
[2021-01-22] MEDS: ZINC SULFATE 220 MG CAPSULE (FP) PO SCH (10:40)
[2021-01-22] MEDS ORDERED: MORPHINE SULFATE 2 MG/ML VIAL IVPUSH ONE (11:24)
[2021-01-22] MEDS: CHLORHEXIDINE GLUCONATE 4% CLEANSER FOR DECOLONIZATION TP SCH ×2 (21:28→22:17)
[2021-01-23] MEDS: guaiFENesin/CODEINE 10 ML UNIT-DOSE CUPS PO SCH ×3 (05:20→21:39)
[2021-01-23] MEDS: ACETAMINOPHEN 650 MG/20.3 ML ORAL SOLUTION (CUPS) PO PRN (06:02)
[2021-01-23 06:56] LABS: HEMOGLOBIN 13.4 GM/dL (10.7-15.3); MCH 31.4 pg (25.7-33.7); MCHC 34.4 g/dl (32.0-36.0); MEAN CELL VOLUME 91.3 fl (80-96); MEAN PLT VOLUME 8.4 fl (7.5-11.1); PLATELET COUNT 202 K/MM3 (134-434); RBC 4.27 M/mm3 (3.60-5.2); RDW 17.3 % (11.6-15.6); WHITE BLOOD COUNT 24.4 K/mm3 (4.0-10.0)
[2021-01-23 07:31] LABS: ALBUMIN 2.9 g/dl (3.4-5.0); BILIRUBIN,TOTAL 0.6 mg/dL (0.2-1); BLOOD UREA NITROGEN 20.8 mg/dL (7-18); CALCIUM 8.8 mg/dL (8.5-10.1); CREATININE 0.6 mg/dL (0.55-1.3); MAGNESIUM 2.7 mg/dL (1.8-2.4); PHOSPHOROUS 4.8 mg/dL (2.5-4.9); TOT PROT 6.2 g/dl (6.4-8.2)
[2021-01-23] MEDS: ALBUTEROL SO4 2.5/IPRATROPIUM 0.5 INH SOL 3 ML VIAL.NEB. NEB SCH ×4 (08:15→20:10)
[2021-01-23] MEDS: BUDESONIDE 0.5 MG/2 ML INH SUSP VIAL NEB SCH ×2 (08:15→20:10)
[2021-01-23] MEDS ORDERED: PT OWN MED DRAWER 7, Y5N ONE (10:12)
[2021-01-23] MEDS: FAMOTIDINE 20 MG TABLET PO SCH (10:23)
[2021-01-23] MEDS: DEXAMETHASONE SOD PHOSPHATE 4 MG/1 ML VIAL IVPUSH SCH (10:23)
[2021-01-23] MEDS: CHOLECALCIFEROL (VIT D3) 1,000 UNIT (25 MCG) TABLET PO SCH (10:23)
[2021-01-23] MEDS: ASCORBIC ACID 500 MG TABLET (FP) PO SCH ×2 (10:23→21:39)
[2021-01-23] MEDS: ZINC SULFATE 220 MG CAPSULE (FP) PO SCH (10:23)
[2021-01-23] MEDS ORDERED: DEXAMETHASONE SOD PHOSPHATE 4 MG/1 ML VIAL IVPUSH SCH (13:01)
[2021-01-23] MEDS ORDERED: MORPHINE SULFATE 2 MG/ML VIAL IVPUSH ONE (13:02)
[2021-01-23] MEDS: CHLORHEXIDINE GLUCONATE 4% CLEANSER FOR DECOLONIZATION TP SCH (21:40)
[2021-01-24] MEDS: guaiFENesin/CODEINE 10 ML UNIT-DOSE CUPS PO SCH ×3 (06:08→22:02)
[2021-01-24] MEDS: ALBUTEROL SO4 2.5/IPRATROPIUM 0.5 INH SOL 3 ML VIAL.NEB. NEB SCH ×4 (07:30→20:02)
[2021-01-24] MEDS: BUDESONIDE 0.5 MG/2 ML INH SUSP VIAL NEB SCH ×2 (07:30→20:02)
[2021-01-24] MEDS ORDERED: PT OWN MED DRAWER 7, Y5N ONE ×2 (09:14→19:50)
[2021-01-24] MEDS: ZINC SULFATE 220 MG CAPSULE (FP) PO SCH (09:19)
[2021-01-24] MEDS: CHOLECALCIFEROL (VIT D3) 1,000 UNIT (25 MCG) TABLET PO SCH (09:19)
[2021-01-24] MEDS: ASCORBIC ACID 500 MG TABLET (FP) PO SCH ×2 (09:19→22:02)
[2021-01-24] MEDS: FAMOTIDINE 20 MG TABLET PO SCH (09:19)
[2021-01-24] MEDS: DEXAMETHASONE SOD PHOSPHATE 4 MG/1 ML VIAL IVPUSH SCH ×2 (09:19→22:01)
[2021-01-24] MEDS: ACETAMINOPHEN 650 MG/20.3 ML ORAL SOLUTION (CUPS) PO PRN (19:54)
[2021-01-24] MEDS: CHLORHEXIDINE GLUCONATE 4% CLEANSER FOR DECOLONIZATION TP SCH (22:02)
[2021-01-25] MEDS: MORPHINE SULFATE 2 MG/ML VIAL IVPUSH PRN ×3 (03:13→18:14)
[2021-01-25] MEDS: guaiFENesin/CODEINE 10 ML UNIT-DOSE CUPS PO SCH ×3 (05:18→22:04)
[2021-01-25 06:23] LABS: BASO % 0.1 % (0-2.0); EOS % 0.3 % (0-4.5); HEMATOCRIT 37.6 % (32.4-45.2); HEMOGLOBIN 12.4 GM/dL (10.7-15.3); LYMPH % 2.4 % (8-40); MCH 30.4 pg (25.7-33.7); MCHC 33.1 g/dl (32.0-36.0); MEAN PLT VOLUME 8.5 fl (7.5-11.1); MONO % 3.2 % (3.8-10.2); PLATELET COUNT 206 K/MM3 (134-434); RBC 4.08 M/mm3 (3.60-5.2); RDW 17.1 % (11.6-15.6); WHITE BLOOD COUNT 22.7 K/mm3 (4.0-10.0)
[2021-01-25 06:51] LABS: BLOOD UREA NITROGEN 15.4 mg/dL (7-18)
[2021-01-25 06:54] LABS: CREATININE 0.4 mg/dL (0.55-1.3)
[2021-01-25] MEDS: BUDESONIDE 0.5 MG/2 ML INH SUSP VIAL NEB SCH ×2 (07:30→20:31)
[2021-01-25] MEDS: ALBUTEROL SO4 2.5/IPRATROPIUM 0.5 INH SOL 3 ML VIAL.NEB. NEB SCH ×4 (07:30→20:31)
[2021-01-25] MEDS: ZINC SULFATE 220 MG CAPSULE (FP) PO SCH (09:19)
[2021-01-25] MEDS: CHOLECALCIFEROL (VIT D3) 1,000 UNIT (25 MCG) TABLET PO SCH (09:19)
[2021-01-25] MEDS: DEXAMETHASONE SOD PHOSPHATE 4 MG/1 ML VIAL IVPUSH SCH ×2 (09:19→22:04)
[2021-01-25] MEDS: ASCORBIC ACID 500 MG TABLET (FP) PO SCH ×2 (09:19→22:04)
[2021-01-25] MEDS: FAMOTIDINE 20 MG TABLET PO SCH (09:19)
[2021-01-25 10:07] LABS: ANISOCYTOSIS 0; MACROCYTOSIS 0; PLATELET ESTIMATE NORMAL
[2021-01-25] MEDS ORDERED: DEXAMETHASONE SOD PHOSPHATE 4 MG/1 ML VIAL IVPUSH SCH (13:48)
[2021-01-25] MEDS ORDERED: BENZOCAINE/MENTH/CETYLPYRD CL 1 EACH LOZENGE MM PRN (18:43)
[2021-01-25] MEDS: CHLORHEXIDINE GLUCONATE 4% CLEANSER FOR DECOLONIZATION TP SCH (22:46)
[2021-01-26] MEDS: MORPHINE SULFATE 2 MG/ML VIAL IVPUSH PRN ×2 (03:09→09:52)
[2021-01-26 07:33] LABS: BASO % 0.2 % (0-2.0); EOS % 0.1 % (0-4.5); HEMATOCRIT 37.4 % (32.4-45.2); HEMOGLOBIN 12.4 GM/dL (10.7-15.3); MCH 30.7 pg (25.7-33.7); MCHC 33.3 g/dl (32.0-36.0); MEAN CELL VOLUME 92.3 fl (80-96); MEAN PLT VOLUME 8.2 fl (7.5-11.1); MONO % 3.2 % (3.8-10.2); NEUT % 94.5 % (42.8-82.8); PLATELET COUNT 251 K/MM3 (134-434); RBC 4.05 M/mm3 (3.60-5.2); RDW 17.2 % (11.6-15.6); WHITE BLOOD COUNT 24.2 K/mm3 (4.0-10.0)
[2021-01-26] MEDS: BUDESONIDE 0.5 MG/2 ML INH SUSP VIAL NEB SCH ×2 (07:40→20:15)
[2021-01-26] MEDS: ALBUTEROL SO4 2.5/IPRATROPIUM 0.5 INH SOL 3 ML VIAL.NEB. NEB SCH ×4 (07:40→20:15)
[2021-01-26 07:50] LABS: CALCIUM 8.9 mg/dL (8.5-10.1)
[2021-01-26 07:51] LABS: ALBUMIN 2.6 g/dl (3.4-5.0); BLOOD UREA NITROGEN 16.4 mg/dL (7-18); MAGNESIUM 2.6 mg/dL (1.8-2.4)
[2021-01-26 07:52] LABS: CREATININE 0.4 mg/dL (0.55-1.3)
[2021-01-26 07:53] LABS: PHOSPHOROUS 4.3 mg/dL (2.5-4.9)
[2021-01-26 07:54] LABS: BILIRUBIN,TOTAL 0.5 mg/dL (0.2-1)
[2021-01-26] MEDS: guaiFENesin/CODEINE 10 ML UNIT-DOSE CUPS PO SCH ×4 (08:25→21:17)
[2021-01-26 08:55] LABS: ANISOCYTOSIS 1+; MACROCYTOSIS 0; PLATELET ESTIMATE NORMAL
[2021-01-26] MEDS: DEXAMETHASONE SOD PHOSPHATE 4 MG/1 ML VIAL IVPUSH SCH ×2 (09:48→21:17)
[2021-01-26] MEDS: CHOLECALCIFEROL (VIT D3) 1,000 UNIT (25 MCG) TABLET PO SCH (09:53)
[2021-01-26] MEDS: FAMOTIDINE 20 MG TABLET PO SCH (09:53)
[2021-01-26] MEDS: ZINC SULFATE 220 MG CAPSULE (FP) PO SCH (09:53)
[2021-01-26] MEDS: ASCORBIC ACID 500 MG TABLET (FP) PO SCH ×2 (09:54→21:17)
[2021-01-26] MEDS: ACETAMINOPHEN 650 MG/20.3 ML ORAL SOLUTION (CUPS) PO PRN (13:54)
[2021-01-26] MEDS ORDERED: MORPHINE SULFATE 2 MG/ML VIAL IVPUSH ONE (15:17)
[2021-01-26] MEDS: CHLORHEXIDINE GLUCONATE 4% CLEANSER FOR DECOLONIZATION TP SCH (21:17)
[2021-01-27] MEDS: guaiFENesin/CODEINE 10 ML UNIT-DOSE CUPS PO SCH ×3 (06:10→22:22)
[2021-01-27] MEDS: BUDESONIDE 0.5 MG/2 ML INH SUSP VIAL NEB SCH ×2 (08:19→20:20)
[2021-01-27] MEDS: ALBUTEROL SO4 2.5/IPRATROPIUM 0.5 INH SOL 3 ML VIAL.NEB. NEB SCH ×4 (08:20→20:20)
[2021-01-27] MEDS: MORPHINE SULFATE 2 MG/ML VIAL IVPUSH PRN (09:46)
[2021-01-27] MEDS: ASCORBIC ACID 500 MG TABLET (FP) PO SCH ×2 (09:47→22:22)
[2021-01-27] MEDS: FAMOTIDINE 20 MG TABLET PO SCH (09:47)
[2021-01-27] MEDS: DEXAMETHASONE SOD PHOSPHATE 4 MG/1 ML VIAL IVPUSH SCH ×2 (09:47→22:22)
[2021-01-27] MEDS: CHOLECALCIFEROL (VIT D3) 1,000 UNIT (25 MCG) TABLET PO SCH (09:47)
[2021-01-27] MEDS: ZINC SULFATE 220 MG CAPSULE (FP) PO SCH (09:47)
[2021-01-27] MEDS: ACETAMINOPHEN 650 MG/20.3 ML ORAL SOLUTION (CUPS) PO PRN ×2 (14:28→20:47)
[2021-01-27] MEDS: CHLORHEXIDINE GLUCONATE 4% CLEANSER FOR DECOLONIZATION TP SCH (22:23)
[2021-01-28] MEDS: MORPHINE SULFATE 2 MG/ML VIAL IVPUSH PRN ×2 (06:27→13:24)
[2021-01-28] MEDS: guaiFENesin/CODEINE 10 ML UNIT-DOSE CUPS PO SCH ×3 (06:27→21:37)
[2021-01-28] MEDS: BUDESONIDE 0.5 MG/2 ML INH SUSP VIAL NEB SCH ×2 (08:00→20:30)
[2021-01-28] MEDS: ALBUTEROL SO4 2.5/IPRATROPIUM 0.5 INH SOL 3 ML VIAL.NEB. NEB SCH ×4 (08:00→20:30)
[2021-01-28] MEDS ORDERED: PT OWN MED DRAWER 7, Y5N ONE ×2 (09:44→12:19)
[2021-01-28] MEDS: DEXAMETHASONE SOD PHOSPHATE 4 MG/1 ML VIAL IVPUSH SCH ×2 (09:46→21:38)
[2021-01-28] MEDS: FAMOTIDINE 20 MG TABLET PO SCH (09:48)
[2021-01-28] MEDS: ZINC SULFATE 220 MG CAPSULE (FP) PO SCH (09:49)
[2021-01-28] MEDS: CHOLECALCIFEROL (VIT D3) 1,000 UNIT (25 MCG) TABLET PO SCH (09:49)
[2021-01-28] MEDS: ASCORBIC ACID 500 MG TABLET (FP) PO SCH ×2 (09:49→21:38)
[2021-01-28] MEDS: BACITRACIN/POLYMYXIN B SULFATE 15 GM TUBE TP SCH ×2 (11:00→21:38)
[2021-01-28] MEDS: SODIUM CHLORIDE NASAL SPRAY 44 ML BOTTLE NS PRN (17:10)
[2021-01-28] MEDS: ACETAMINOPHEN 650 MG/20.3 ML ORAL SOLUTION (CUPS) PO PRN (19:45)
[2021-01-28] MEDS: CHLORHEXIDINE GLUCONATE 4% CLEANSER FOR DECOLONIZATION TP SCH (21:38)
[2021-01-29] MEDS ORDERED: PT OWN MED DRAWER 7, Y5N ONE ×2 (06:11→06:39)
[2021-01-29] MEDS ORDERED: ONDANSETRON 4 MG/2 ML VIAL IVPUSH ONE (06:15)
[2021-01-29] MEDS: guaiFENesin/CODEINE 10 ML UNIT-DOSE CUPS PO SCH ×3 (06:18→21:09)
[2021-01-29] MEDS: BUDESONIDE 0.5 MG/2 ML INH SUSP VIAL NEB SCH ×2 (07:30→22:40)
[2021-01-29] MEDS: ALBUTEROL SO4 2.5/IPRATROPIUM 0.5 INH SOL 3 ML VIAL.NEB. NEB SCH ×4 (07:30→22:40)
[2021-01-29] MEDS: MORPHINE SULFATE 2 MG/ML VIAL IVPUSH PRN ×3 (09:45→21:09)
[2021-01-29] MEDS: ACETAMINOPHEN 650 MG/20.3 ML ORAL SOLUTION (CUPS) PO PRN (09:45)
[2021-01-29] MEDS: CHOLECALCIFEROL (VIT D3) 1,000 UNIT (25 MCG) TABLET PO SCH (11:39)
[2021-01-29] MEDS: ASCORBIC ACID 500 MG TABLET (FP) PO SCH ×2 (11:39→21:09)
[2021-01-29] MEDS: DEXAMETHASONE SOD PHOSPHATE 4 MG/1 ML VIAL IVPUSH SCH ×2 (11:39→21:08)
[2021-01-29] MEDS: FAMOTIDINE 20 MG TABLET PO SCH (11:39)
[2021-01-29] MEDS: BACITRACIN/POLYMYXIN B SULFATE 15 GM TUBE TP SCH ×2 (11:40→21:08)
[2021-01-29] MEDS: ZINC SULFATE 220 MG CAPSULE (FP) PO SCH (11:40)
[2021-01-29] MEDS: CHLORHEXIDINE GLUCONATE 4% CLEANSER FOR DECOLONIZATION TP SCH (21:08)
[2021-01-30] MEDS: ACETAMINOPHEN 650 MG/20.3 ML ORAL SOLUTION (CUPS) PO PRN (01:15)
[2021-01-30] MEDS ORDERED: MORPHINE SULFATE 2 MG/ML VIAL IM PRN (01:32)
[2021-01-30] MEDS: guaiFENesin/CODEINE 10 ML UNIT-DOSE CUPS PO SCH ×3 (06:42→21:37)
[2021-01-30] MEDS: FAMOTIDINE 20 MG TABLET PO SCH (09:35)
[2021-01-30] MEDS: ASCORBIC ACID 500 MG TABLET (FP) PO SCH ×2 (09:35→21:38)
[2021-01-30] MEDS: CHOLECALCIFEROL (VIT D3) 1,000 UNIT (25 MCG) TABLET PO SCH (09:36)
[2021-01-30] MEDS: DEXAMETHASONE SOD PHOSPHATE 4 MG/1 ML VIAL IVPUSH SCH ×2 (09:37→21:37)
[2021-01-30] MEDS: ZINC SULFATE 220 MG CAPSULE (FP) PO SCH (09:38)
[2021-01-30] MEDS: MORPHINE SULFATE 2 MG/ML VIAL IVPUSH PRN (09:52)
[2021-01-30] MEDS: BACITRACIN/POLYMYXIN B SULFATE 15 GM TUBE TP SCH ×2 (09:58→21:37)
[2021-01-30] MEDS: BUDESONIDE 0.5 MG/2 ML INH SUSP VIAL NEB SCH ×2 (10:45→20:00)
[2021-01-30] MEDS: ALBUTEROL SO4 2.5/IPRATROPIUM 0.5 INH SOL 3 ML VIAL.NEB. NEB SCH ×4 (10:45→20:00)
[2021-01-30] MEDS: CHLORHEXIDINE GLUCONATE 4% CLEANSER FOR DECOLONIZATION TP SCH (21:37)
[2021-01-30] MEDS: oxyCODONE HCL 5 MG TABLET PO PRN (21:38)
[2021-01-30] MEDS: ACETAMINOPHEN 325 MG TABLET (FP) PO PRN (21:39)
[2021-01-30] MEDS ORDERED: DEXAMETHASONE 2 MG TABLET PO SCH (22:15)
[2021-01-31] MEDS: guaiFENesin/CODEINE 10 ML UNIT-DOSE CUPS PO SCH ×3 (06:50→22:36)
[2021-01-31] MEDS: BUDESONIDE 0.5 MG/2 ML INH SUSP VIAL NEB SCH ×2 (08:20→20:30)
[2021-01-31] MEDS: ALBUTEROL SO4 2.5/IPRATROPIUM 0.5 INH SOL 3 ML VIAL.NEB. NEB SCH ×4 (08:20→20:20)
[2021-01-31] MEDS: ZINC SULFATE 220 MG CAPSULE (FP) PO SCH (09:34)
[2021-01-31] MEDS: FAMOTIDINE 20 MG TABLET PO SCH (09:34)
[2021-01-31] MEDS: CHOLECALCIFEROL (VIT D3) 1,000 UNIT (25 MCG) TABLET PO SCH (09:34)
[2021-01-31] MEDS: oxyCODONE HCL 5 MG TABLET PO PRN (09:34)
[2021-01-31] MEDS: ASCORBIC ACID 500 MG TABLET (FP) PO SCH ×2 (09:34→22:36)
[2021-01-31] MEDS: BACITRACIN/POLYMYXIN B SULFATE 15 GM TUBE TP SCH ×3 (09:35→22:48)
[2021-01-31] MEDS ORDERED: PT OWN MED DRAWER 7, Y5N ONE ×2 (09:38→22:35)
[2021-01-31] MEDS: DEXAMETHASONE 1.5 MG TABLET PO SCH ×3 (09:39→22:36)
[2021-01-31] MEDS ORDERED: FUROSEMIDE 40 MG/4 ML INJECTABLE VIAL IVPUSH ONE (16:10)
[2021-01-31] MEDS: CHLORHEXIDINE GLUCONATE 4% CLEANSER FOR DECOLONIZATION TP SCH (22:36)
[2021-02-01] MEDS: oxyCODONE HCL 5 MG TABLET PO PRN ×3 (01:04→21:31)
[2021-02-01] MEDS: ACETAMINOPHEN 650 MG/20.3 ML ORAL SOLUTION (CUPS) PO PRN (01:05)
[2021-02-01] MEDS: ALBUTEROL SO4 2.5/IPRATROPIUM 0.5 INH SOL 3 ML VIAL.NEB. NEB SCH ×4 (08:25→20:47)
[2021-02-01] MEDS: BUDESONIDE 0.5 MG/2 ML INH SUSP VIAL NEB SCH ×2 (08:25→20:47)
[2021-02-01] MEDS: guaiFENesin/CODEINE 10 ML UNIT-DOSE CUPS PO SCH ×3 (09:35→21:33)
[2021-02-01] MEDS: ASCORBIC ACID 500 MG TABLET (FP) PO SCH ×2 (09:35→21:31)
[2021-02-01] MEDS: FAMOTIDINE 20 MG TABLET PO SCH (09:36)
[2021-02-01] MEDS: CHOLECALCIFEROL (VIT D3) 1,000 UNIT (25 MCG) TABLET PO SCH (09:36)
[2021-02-01] MEDS: DEXAMETHASONE 1.5 MG TABLET PO SCH (09:36)
[2021-02-01] MEDS: BACITRACIN/POLYMYXIN B SULFATE 15 GM TUBE TP SCH ×2 (09:37→21:32)
[2021-02-01] MEDS ORDERED: PT OWN MED DRAWER 7, Y5N ONE (15:42)
[2021-02-01] MEDS: CHLORHEXIDINE GLUCONATE 4% CLEANSER FOR DECOLONIZATION TP SCH (21:32)
[2021-02-01] MEDS: ACETAMINOPHEN 325 MG TABLET (FP) PO PRN (21:32)
[2021-02-02] MEDS: guaiFENesin/CODEINE 10 ML UNIT-DOSE CUPS PO SCH ×3 (06:20→21:01)
[2021-02-02] MEDS: ALBUTEROL SO4 2.5/IPRATROPIUM 0.5 INH SOL 3 ML VIAL.NEB. NEB SCH ×4 (07:40→20:23)
[2021-02-02] MEDS: BUDESONIDE 0.5 MG/2 ML INH SUSP VIAL NEB SCH ×2 (07:40→20:23)
[2021-02-02] MEDS ORDERED: PT OWN MED DRAWER 7, Y5N ONE ×2 (08:42→12:01)
[2021-02-02] MEDS: oxyCODONE HCL 5 MG TABLET PO PRN (08:45)
[2021-02-02] MEDS: DEXAMETHASONE 1.5 MG TABLET PO SCH (12:03)
[2021-02-02] MEDS: CHOLECALCIFEROL (VIT D3) 1,000 UNIT (25 MCG) TABLET PO SCH (12:04)
[2021-02-02] MEDS: BACITRACIN/POLYMYXIN B SULFATE 15 GM TUBE TP SCH ×2 (12:04→21:01)
[2021-02-02] MEDS: ASCORBIC ACID 500 MG TABLET (FP) PO SCH ×2 (12:04→21:01)
[2021-02-02] MEDS: FAMOTIDINE 20 MG TABLET PO SCH (12:04)
[2021-02-02 12:21] LABS: BASO % 0.2 % (0-2.0); HEMATOCRIT 33.8 % (32.4-45.2); HEMOGLOBIN 11.4 GM/dL (10.7-15.3); LYMPH % 4.5 % (8-40); MCH 31.1 pg (25.7-33.7); MCHC 33.6 g/dl (32.0-36.0); MEAN CELL VOLUME 92.4 fl (80-96); MEAN PLT VOLUME 8.1 fl (7.5-11.1); MONO % 3.8 % (3.8-10.2); NEUT % 89.5 % (42.8-82.8); PLATELET COUNT 304 K/MM3 (134-434); RBC 3.66 M/mm3 (3.60-5.2); RDW 16.9 % (11.6-15.6)
[2021-02-02 12:50] LABS: ALBUMIN 2.1 g/dl (3.4-5.0); CALCIUM 8.3 mg/dL (8.5-10.1)
[2021-02-02 12:51] LABS: BLOOD UREA NITROGEN 16.3 mg/dL (7-18)
[2021-02-02 12:54] LABS: CREATININE 0.5 mg/dL (0.55-1.3)
[2021-02-02 12:55] LABS: BILIRUBIN,TOTAL 0.5 mg/dL (0.2-1); TOT PROT 5.6 g/dl (6.4-8.2)
[2021-02-02 14:01] LABS: ANISOCYTOSIS 0; MACROCYTOSIS 0; OVALOCYTE 1+; PLATELET ESTIMATE NORMAL
[2021-02-02] MEDS: ENOXAPARIN NA (PORCINE) 100 MG/1 ML DISP.SYRIN SQ SCH ×2 (14:50→21:00)
[2021-02-02] MEDS: ACETAMINOPHEN 325 MG TABLET (FP) PO PRN (21:00)
[2021-02-02] MEDS: CHLORHEXIDINE GLUCONATE 4% CLEANSER FOR DECOLONIZATION TP SCH (21:00)
[2021-02-03] MEDS: guaiFENesin/CODEINE 10 ML UNIT-DOSE CUPS PO SCH ×3 (06:41→21:13)
[2021-02-03 07:09] LABS: LDH 353 U/L (84-246)
[2021-02-03] MEDS: ALBUTEROL SO4 2.5/IPRATROPIUM 0.5 INH SOL 3 ML VIAL.NEB. NEB SCH ×4 (07:45→20:20)
[2021-02-03] MEDS: BUDESONIDE 0.5 MG/2 ML INH SUSP VIAL NEB SCH ×2 (07:45→20:15)
[2021-02-03] MEDS: FAMOTIDINE 20 MG TABLET PO SCH (10:45)
[2021-02-03] MEDS: BACITRACIN/POLYMYXIN B SULFATE 15 GM TUBE TP SCH ×2 (11:48→21:14)
[2021-02-03] MEDS: ASCORBIC ACID 500 MG TABLET (FP) PO SCH ×2 (11:48→21:13)
[2021-02-03] MEDS: CHOLECALCIFEROL (VIT D3) 1,000 UNIT (25 MCG) TABLET PO SCH (11:48)
[2021-02-03] MEDS: ENOXAPARIN NA (PORCINE) 100 MG/1 ML DISP.SYRIN SQ SCH ×2 (11:49→21:13)
[2021-02-03] MEDS: DEXAMETHASONE 1.5 MG TABLET PO SCH (11:49)
[2021-02-03] MEDS: ACETAMINOPHEN 650 MG/20.3 ML ORAL SOLUTION (CUPS) PO PRN (20:13)
[2021-02-03] MEDS: CHLORHEXIDINE GLUCONATE 4% CLEANSER FOR DECOLONIZATION TP SCH (21:13)
[2021-02-04] MEDS: ACETAMINOPHEN 650 MG/20.3 ML ORAL SOLUTION (CUPS) PO PRN (04:23)
[2021-02-04] MEDS: guaiFENesin/CODEINE 10 ML UNIT-DOSE CUPS PO SCH ×3 (06:05→22:42)
[2021-02-04] MEDS: BUDESONIDE 0.5 MG/2 ML INH SUSP VIAL NEB SCH ×2 (07:58→21:01)
[2021-02-04] MEDS: ALBUTEROL SO4 2.5/IPRATROPIUM 0.5 INH SOL 3 ML VIAL.NEB. NEB SCH ×4 (07:58→21:01)
[2021-02-04 08:12] LABS: CALCIUM 8.4 mg/dL (8.5-10.1)
[2021-02-04 08:15] LABS: BILIRUBIN,TOTAL 0.5 mg/dL (0.2-1)
[2021-02-04 08:16] LABS: CREATININE 0.3 mg/dL (0.55-1.3); TOT PROT 5.9 g/dl (6.4-8.2)
[2021-02-04] MEDS: ENOXAPARIN NA (PORCINE) 100 MG/1 ML DISP.SYRIN SQ SCH ×2 (10:08→22:42)
[2021-02-04] MEDS: FAMOTIDINE 20 MG TABLET PO SCH (10:08)
[2021-02-04] MEDS: ASCORBIC ACID 500 MG TABLET (FP) PO SCH ×2 (10:08→22:43)
[2021-02-04] MEDS: CHOLECALCIFEROL (VIT D3) 1,000 UNIT (25 MCG) TABLET PO SCH (10:08)
[2021-02-04] MEDS: DEXAMETHASONE 1.5 MG TABLET PO SCH (10:09)
[2021-02-04] MEDS: BACITRACIN/POLYMYXIN B SULFATE 15 GM TUBE TP SCH ×2 (10:09→22:43)
[2021-02-04] MEDS: CHLORHEXIDINE GLUCONATE 4% CLEANSER FOR DECOLONIZATION TP SCH (22:43)
[2021-02-05] MEDS: ACETAMINOPHEN 650 MG/20.3 ML ORAL SOLUTION (CUPS) PO PRN (03:51)
[2021-02-05] MEDS: guaiFENesin/CODEINE 10 ML UNIT-DOSE CUPS PO SCH ×3 (05:35→21:48)
[2021-02-05 07:33] LABS: CALCIUM 8.5 mg/dL (8.5-10.1)
[2021-02-05 07:36] LABS: BILIRUBIN,TOTAL 0.4 mg/dL (0.2-1); CREATININE 0.4 mg/dL (0.55-1.3); TOT PROT 6.2 g/dl (6.4-8.2)
[2021-02-05] MEDS: ALBUTEROL SO4 2.5/IPRATROPIUM 0.5 INH SOL 3 ML VIAL.NEB. NEB SCH ×4 (07:59→20:50)
[2021-02-05] MEDS: BUDESONIDE 0.5 MG/2 ML INH SUSP VIAL NEB SCH ×2 (07:59→20:50)
[2021-02-05] MEDS ORDERED: PT OWN MED DRAWER 7, Y5N ONE ×2 (10:30→10:38)
[2021-02-05] MEDS: CHOLECALCIFEROL (VIT D3) 1,000 UNIT (25 MCG) TABLET PO SCH (10:34)
[2021-02-05] MEDS: ENOXAPARIN NA (PORCINE) 100 MG/1 ML DISP.SYRIN SQ SCH ×2 (10:34→21:48)
[2021-02-05] MEDS: DEXAMETHASONE 1.5 MG TABLET PO SCH (10:34)
[2021-02-05] MEDS: ASCORBIC ACID 500 MG TABLET (FP) PO SCH ×2 (10:35→21:49)
[2021-02-05] MEDS: BACITRACIN/POLYMYXIN B SULFATE 15 GM TUBE TP SCH ×2 (10:35→21:49)
[2021-02-05] MEDS: FAMOTIDINE 20 MG TABLET PO SCH (10:35)
[2021-02-05] MEDS: CHLORHEXIDINE GLUCONATE 4% CLEANSER FOR DECOLONIZATION TP SCH (21:49)
[2021-02-06] MEDS: ACETAMINOPHEN 650 MG/20.3 ML ORAL SOLUTION (CUPS) PO PRN ×2 (04:03→21:50)
[2021-02-06] MEDS: guaiFENesin/CODEINE 10 ML UNIT-DOSE CUPS PO SCH ×3 (06:07→21:51)
[2021-02-06 06:34] LABS: BASO % 0.3 % (0-2.0); EOS % 1.8 % (0-4.5); HEMATOCRIT 32.8 % (32.4-45.2); HEMOGLOBIN 10.8 GM/dL (10.7-15.3); LYMPH % 8.4 % (8-40); MCHC 32.9 g/dl (32.0-36.0); MEAN CELL VOLUME 91.1 fl (80-96); MEAN PLT VOLUME 8.2 fl (7.5-11.1); MONO % 4.5 % (3.8-10.2); PLATELET COUNT 298 K/MM3 (134-434); RDW 17.1 % (11.6-15.6); WHITE BLOOD COUNT 17.3 K/mm3 (4.0-10.0)
[2021-02-06 06:48] LABS: CALCIUM 8.4 mg/dL (8.5-10.1)
[2021-02-06 06:49] LABS: BLOOD UREA NITROGEN 17.4 mg/dL (7-18)
[2021-02-06 06:53] LABS: CREATININE 0.4 mg/dL (0.55-1.3)
[2021-02-06] MEDS: ALBUTEROL SO4 2.5/IPRATROPIUM 0.5 INH SOL 3 ML VIAL.NEB. NEB SCH ×4 (07:45→21:15)
[2021-02-06] MEDS: BUDESONIDE 0.5 MG/2 ML INH SUSP VIAL NEB SCH ×2 (07:45→21:10)
[2021-02-06 09:26] LABS: ANISOCYTOSIS 0; MACROCYTOSIS 0; PLATELET ESTIMATE NORMAL
[2021-02-06] MEDS: DEXAMETHASONE 4 MG TABLET (FP) PO SCH (10:30)
[2021-02-06] MEDS: ENOXAPARIN NA (PORCINE) 100 MG/1 ML DISP.SYRIN SQ SCH ×2 (10:30→21:51)
[2021-02-06] MEDS: CHOLECALCIFEROL (VIT D3) 1,000 UNIT (25 MCG) TABLET PO SCH (10:31)
[2021-02-06] MEDS: ASCORBIC ACID 500 MG TABLET (FP) PO SCH ×2 (10:31→21:51)
[2021-02-06] MEDS: FAMOTIDINE 20 MG TABLET PO SCH (10:31)
[2021-02-06] MEDS: BACITRACIN/POLYMYXIN B SULFATE 15 GM TUBE TP SCH ×2 (15:15→21:50)
[2021-02-06] MEDS: CHLORHEXIDINE GLUCONATE 4% CLEANSER FOR DECOLONIZATION TP SCH (21:50)
[2021-02-07] MEDS: oxyCODONE HCL 5 MG TABLET PO PRN (04:46)
[2021-02-07] MEDS: BUDESONIDE 0.5 MG/2 ML INH SUSP VIAL NEB SCH ×2 (08:30→20:30)
[2021-02-07] MEDS: ALBUTEROL SO4 2.5/IPRATROPIUM 0.5 INH SOL 3 ML VIAL.NEB. NEB SCH ×4 (08:31→20:29)
[2021-02-07] MEDS: ASCORBIC ACID 500 MG TABLET (FP) PO SCH ×2 (10:40→21:04)
[2021-02-07] MEDS: CHOLECALCIFEROL (VIT D3) 1,000 UNIT (25 MCG) TABLET PO SCH (10:40)
[2021-02-07] MEDS: BACITRACIN/POLYMYXIN B SULFATE 15 GM TUBE TP SCH ×2 (10:41→21:04)
[2021-02-07] MEDS: DEXAMETHASONE 4 MG TABLET (FP) PO SCH (10:41)
[2021-02-07] MEDS: FAMOTIDINE 20 MG TABLET PO SCH (10:41)
[2021-02-07] MEDS: ENOXAPARIN NA (PORCINE) 100 MG/1 ML DISP.SYRIN SQ SCH ×2 (11:13→21:03)
[2021-02-07] MEDS: guaiFENesin/CODEINE 10 ML UNIT-DOSE CUPS PO SCH ×3 (13:48→21:05)
[2021-02-07] MEDS: CHLORHEXIDINE GLUCONATE 4% CLEANSER FOR DECOLONIZATION TP SCH (21:04)
[2021-02-08] MEDS: guaiFENesin/CODEINE 10 ML UNIT-DOSE CUPS PO SCH ×3 (05:39→21:24)
[2021-02-08] MEDS: BUDESONIDE 0.5 MG/2 ML INH SUSP VIAL NEB SCH ×2 (08:20→20:10)
[2021-02-08] MEDS: ALBUTEROL SO4 2.5/IPRATROPIUM 0.5 INH SOL 3 ML VIAL.NEB. NEB SCH (08:20)
[2021-02-08] MEDS: ENOXAPARIN NA (PORCINE) 100 MG/1 ML DISP.SYRIN SQ SCH ×2 (09:34→21:23)
[2021-02-08] MEDS: ASCORBIC ACID 500 MG TABLET (FP) PO SCH ×2 (09:35→21:23)
[2021-02-08] MEDS: CHOLECALCIFEROL (VIT D3) 1,000 UNIT (25 MCG) TABLET PO SCH (09:36)
[2021-02-08] MEDS: FAMOTIDINE 20 MG TABLET PO SCH (09:36)
[2021-02-08] MEDS: DEXAMETHASONE 4 MG TABLET (FP) PO SCH (09:36)
[2021-02-08] MEDS: BACITRACIN/POLYMYXIN B SULFATE 15 GM TUBE TP SCH ×2 (09:36→21:23)
[2021-02-08] MEDS: CHLORHEXIDINE GLUCONATE 4% CLEANSER FOR DECOLONIZATION TP SCH (21:23)
[2021-02-08] MEDS: ACETAMINOPHEN 650 MG/20.3 ML ORAL SOLUTION (CUPS) PO PRN (21:24)
[2021-02-09] MEDS: guaiFENesin/CODEINE 10 ML UNIT-DOSE CUPS PO SCH ×3 (06:33→21:24)
[2021-02-09] MEDS: BUDESONIDE 0.5 MG/2 ML INH SUSP VIAL NEB SCH ×2 (08:10→20:30)
[2021-02-09] MEDS: ENOXAPARIN NA (PORCINE) 100 MG/1 ML DISP.SYRIN SQ SCH ×2 (09:34→21:24)
[2021-02-09] MEDS: CHOLECALCIFEROL (VIT D3) 1,000 UNIT (25 MCG) TABLET PO SCH (09:35)
[2021-02-09] MEDS: ASCORBIC ACID 500 MG TABLET (FP) PO SCH ×2 (09:35→21:24)
[2021-02-09] MEDS: BACITRACIN/POLYMYXIN B SULFATE 15 GM TUBE TP SCH ×2 (09:35→21:24)
[2021-02-09] MEDS: FAMOTIDINE 20 MG TABLET PO SCH (09:35)
[2021-02-09] MEDS ORDERED: PT OWN MED DRAWER 7, Y5N ONE (09:36)
[2021-02-09] MEDS: DEXAMETHASONE 0.5 MG TABLET PO SCH (09:37)
[2021-02-09] MEDS: ACETAMINOPHEN 650 MG/20.3 ML ORAL SOLUTION (CUPS) PO PRN (21:23)
[2021-02-09] MEDS: CHLORHEXIDINE GLUCONATE 4% CLEANSER FOR DECOLONIZATION TP SCH (21:24)
[2021-02-10] MEDS: guaiFENesin/CODEINE 10 ML UNIT-DOSE CUPS PO SCH ×3 (05:56→21:37)
[2021-02-10] MEDS: BUDESONIDE 0.5 MG/2 ML INH SUSP VIAL NEB SCH ×2 (07:35→20:05)
[2021-02-10] MEDS: ENOXAPARIN NA (PORCINE) 100 MG/1 ML DISP.SYRIN SQ SCH ×2 (10:07→21:37)
[2021-02-10] MEDS: DEXAMETHASONE 0.5 MG TABLET PO SCH (10:07)
[2021-02-10] MEDS: BACITRACIN/POLYMYXIN B SULFATE 15 GM TUBE TP SCH ×2 (10:08→21:38)
[2021-02-10] MEDS: FAMOTIDINE 20 MG TABLET PO SCH (10:08)
[2021-02-10] MEDS: CHOLECALCIFEROL (VIT D3) 1,000 UNIT (25 MCG) TABLET PO SCH (10:09)
[2021-02-10] MEDS: ASCORBIC ACID 500 MG TABLET (FP) PO SCH ×2 (10:09→21:37)
[2021-02-10] MEDS: CHLORHEXIDINE GLUCONATE 4% CLEANSER FOR DECOLONIZATION TP SCH (21:38)
[2021-02-11] MEDS: guaiFENesin/CODEINE 10 ML UNIT-DOSE CUPS PO SCH ×2 (05:58→21:15)
[2021-02-11] MEDS: BUDESONIDE 0.5 MG/2 ML INH SUSP VIAL NEB SCH ×2 (08:26→20:29)
[2021-02-11] MEDS: ASCORBIC ACID 500 MG TABLET (FP) PO SCH ×2 (10:28→21:15)
[2021-02-11] MEDS: ENOXAPARIN NA (PORCINE) 100 MG/1 ML DISP.SYRIN SQ SCH ×2 (10:28→21:15)
[2021-02-11] MEDS: DEXAMETHASONE 0.5 MG TABLET PO SCH (10:28)
[2021-02-11] MEDS: BACITRACIN/POLYMYXIN B SULFATE 15 GM TUBE TP SCH ×2 (10:28→21:25)
[2021-02-11] MEDS: FAMOTIDINE 20 MG TABLET PO SCH (10:28)
[2021-02-11] MEDS: CHOLECALCIFEROL (VIT D3) 1,000 UNIT (25 MCG) TABLET PO SCH (10:28)
[2021-02-11] MEDS ORDERED: SENNOSIDES 8.6MG TABLET (FP) PO PRN (15:51)
[2021-02-11] MEDS ORDERED: ACETAMINOPHEN 650 MG/20.3 ML ORAL SOLUTION (CUPS) PO PRN (15:51)
[2021-02-11] MEDS ORDERED: POLYETHYLENE GLYCOL 3350 119 GM BTL PO PRN (15:51)
[2021-02-11] MEDS ORDERED: oxyCODONE HCL 5 MG TABLET PO PRN (15:51)
[2021-02-11] MEDS ORDERED: TRIMETHOBENZAMIDE HCL 300 MG CAPSULE PO PRN (15:51)
[2021-02-11] MEDS ORDERED: SODIUM CHLORIDE NASAL SPRAY 44 ML BOTTLE NS PRN (15:51)
[2021-02-11] MEDS ORDERED: BENZOCAINE/MENTH/CETYLPYRD CL 1 EACH LOZENGE MM PRN (15:51)
[2021-02-11] MEDS: ACETAMINOPHEN 325 MG TABLET (FP) PO PRN (21:21)
[2021-02-11] MEDS ORDERED: SIMETHICONE 80 MG TAB.CHEW (FP) PO PRN (21:29)
[2021-02-11] MEDS ORDERED: CHLORHEXIDINE GLUCONATE 4% CLEANSER FOR DECOLONIZATION TP SCH (22:00)
[2021-02-12] MEDS ORDERED: LORazepam 2 MG/ML SDV VIAL IVPUSH ONE ×2 (01:36→15:09)
[2021-02-12] MEDS ORDERED: LORazepam 2 MG/ML SDV VIAL ONE (01:43)
[2021-02-12] MEDS ORDERED: MORPHINE SULFATE 2 MG/ML VIAL IVPUSH ONE ×3 (04:44→16:55)
[2021-02-12] MEDS: guaiFENesin/CODEINE 10 ML UNIT-DOSE CUPS PO SCH ×4 (06:19→22:15)
[2021-02-12 06:46] LABS: BASO % 0.7 % (0-2.0); EOS % 1.9 % (0-4.5); HEMOGLOBIN 11.6 GM/dL (10.7-15.3); LYMPH % 7.4 % (8-40); MCH 30.2 pg (25.7-33.7); MEAN CELL VOLUME 91.5 fl (80-96); MEAN PLT VOLUME 7.9 fl (7.5-11.1); MONO % 4.9 % (3.8-10.2); NEUT % 85.1 % (42.8-82.8); PLATELET COUNT 407 K/MM3 (134-434); RBC 3.83 M/mm3 (3.60-5.2); WHITE BLOOD COUNT 21.2 K/mm3 (4.0-10.0)
[2021-02-12 07:04] LABS: BLOOD UREA NITROGEN 13.5 mg/dL (7-18)
[2021-02-12 07:05] LABS: CALCIUM 8.8 mg/dL (8.5-10.1)
[2021-02-12 07:08] LABS: CREATININE 0.4 mg/dL (0.55-1.3)
[2021-02-12] MEDS: BUDESONIDE 0.5 MG/2 ML INH SUSP VIAL NEB SCH ×3 (07:40→21:00)
[2021-02-12] MEDS: BACITRACIN/POLYMYXIN B SULFATE 15 GM TUBE TP SCH ×2 (09:11→22:16)
[2021-02-12] MEDS: ENOXAPARIN NA (PORCINE) 100 MG/1 ML DISP.SYRIN SQ SCH ×2 (09:11→22:15)
[2021-02-12] MEDS: ASCORBIC ACID 500 MG TABLET (FP) PO SCH ×2 (09:12→22:16)
[2021-02-12] MEDS ORDERED: CHOLECALCIFEROL (VIT D3) 1,000 UNIT (25 MCG) TABLET PO SCH (10:00)
[2021-02-12] MEDS ORDERED: FAMOTIDINE 20 MG TABLET PO SCH (10:00)
[2021-02-12 11:17] LABS: ANISOCYTOSIS 1+; MACROCYTOSIS 0; PLATELET ESTIMATE NORMAL; TEAR DROP CELLS 1+
[2021-02-12] MEDS ORDERED: DEXAMETHASONE 4 MG TABLET (FP) PO SCH (11:45)
[2021-02-12] MEDS ORDERED: ONDANSETRON 4 MG/2 ML VIAL IVPB PRN ×2 (14:41→23:08)
[2021-02-12] MEDS ORDERED: MORPHINE SULFATE 2 MG/ML VIAL ONE (15:13)
[2021-02-12] MEDS ORDERED: LIDOCAINE HCL 1%, 10 MG/ML (20ML VIAL) ONE (15:16)
[2021-02-12] MEDS ORDERED: dilTIAZem HCL 50 MG/10 ML - 10 ML VIAL IVPUSH PRN (20:27)
[2021-02-12] MEDS ORDERED: MORPHINE SULFATE 2 MG/ML VIAL IVPUSH PRN (20:29)
[2021-02-12] MEDS ORDERED: ALBUTEROL SO4 HFA INHALER IH PRN (20:32)
[2021-02-12] MEDS: CHLORHEXIDINE GLUCONATE 4% CLEANSER FOR DECOLONIZATION TP SCH (22:15)
[2021-02-12] MEDS: MUPIROCIN 2% TOPICAL OINTMENT FOR DECOLONIZATION NS SCH (22:15)
[2021-02-12] MEDS: ACETAMINOPHEN 325 MG TABLET (FP) PO PRN (22:16)
[2021-02-12] MEDS ORDERED: SENNOSIDES 8.6MG TABLET (FP) PO PRN (23:08)
[2021-02-12] MEDS ORDERED: TRIMETHOBENZAMIDE HCL 300 MG CAPSULE PO PRN (23:08)
[2021-02-12] MEDS ORDERED: SODIUM CHLORIDE NASAL SPRAY 44 ML BOTTLE NS PRN (23:08)
[2021-02-12] MEDS ORDERED: SIMETHICONE 80 MG TAB.CHEW (FP) PO PRN (23:08)
[2021-02-12] MEDS ORDERED: POLYETHYLENE GLYCOL 3350 119 GM BTL PO PRN (23:08)
[2021-02-13 00:37] LABS: EPI CELLS 11 /uL (0-25.1); HYALINE CASTS 1 /uL (0-3.1); PH,URINE 6.5 (5.0-8.0); URINE APPEARANCE CLEAR; URINE BACTERIA 512 /uL (0-1359); URINE BILIRUBIN NEGATIVE (NEGATIVE); URINE COLOR YELLOW; URINE GLUCOSE (UA) TRACE (NEGATIVE); URINE KETONE TRACE (NEGATIVE); URINE LEUK ESTERASE NEGATIVE (NEGATIVE); URINE NITRITE NEGATIVE (NEGATIVE); URINE PROTEIN 1+ (NEGATIVE); URINE UROBILINOGEN 0.2 mg/dL (0.2-1.0); URINE WBC 3 /uL (0-25.8)
[2021-02-13 05:02] LABS: URINE RBC 40.9 /uL (0-23.9)
[2021-02-13] MEDS: guaiFENesin/CODEINE 10 ML UNIT-DOSE CUPS PO SCH ×4 (06:11→21:18)
[2021-02-13 06:58] LABS: BASO % 0.4 % (0-2.0); EOS % 0.2 % (0-4.5); HEMATOCRIT 32.3 % (32.4-45.2); HEMOGLOBIN 10.7 GM/dL (10.7-15.3); LYMPH % 8.6 % (8-40); MCH 30.1 pg (25.7-33.7); MEAN CELL VOLUME 91.2 fl (80-96); MEAN PLT VOLUME 8.4 fl (7.5-11.1); MONO % 5.2 % (3.8-10.2); NEUT % 85.6 % (42.8-82.8); PLATELET COUNT 413 K/MM3 (134-434); RBC 3.54 M/mm3 (3.60-5.2); RDW 16.7 % (11.6-15.6); WHITE BLOOD COUNT 17.8 K/mm3 (4.0-10.0)
[2021-02-13 07:28] LABS: MAGNESIUM 2.4 mg/dL (1.8-2.4)
[2021-02-13 07:30] LABS: BILIRUBIN,TOTAL 0.3 mg/dL (0.2-1)
[2021-02-13 07:31] LABS: CREATININE 0.4 mg/dL (0.55-1.3); PHOSPHOROUS 4.3 mg/dL (2.5-4.9)
[2021-02-13 07:32] LABS: ALBUMIN 2.6 g/dl (3.4-5.0)
[2021-02-13] MEDS: BUDESONIDE 0.5 MG/2 ML INH SUSP VIAL NEB SCH ×2 (08:25→20:30)
[2021-02-13] MEDS: DEXAMETHASONE 4 MG TABLET (FP) PO SCH (09:51)
[2021-02-13] MEDS: FAMOTIDINE 20 MG TABLET PO SCH (09:51)
[2021-02-13] MEDS: ENOXAPARIN NA (PORCINE) 100 MG/1 ML DISP.SYRIN SQ SCH ×2 (09:51→21:17)
[2021-02-13] MEDS: ASCORBIC ACID 500 MG TABLET (FP) PO SCH ×2 (09:51→21:05)
[2021-02-13] MEDS: CHOLECALCIFEROL (VIT D3) 1,000 UNIT (25 MCG) TABLET PO SCH (09:52)
[2021-02-13] MEDS: MUPIROCIN 2% TOPICAL OINTMENT FOR DECOLONIZATION NS SCH ×2 (09:52→21:18)
[2021-02-13] MEDS: BACITRACIN/POLYMYXIN B SULFATE 15 GM TUBE TP SCH ×2 (10:05→21:18)
[2021-02-13 10:11] LABS: ANISOCYTOSIS 1+; MACROCYTOSIS 0; PLATELET ESTIMATE INCREASED
[2021-02-13] MEDS: oxyCODONE HCL 5 MG TABLET PO PRN ×2 (13:46→21:18)
[2021-02-13] MEDS ORDERED: DEXTROSE 5%-WATER - 50 ML IVPB ONE (15:12)
[2021-02-13] MEDS ORDERED: cefTRIAXone SODIUM 1 GM VIAL ONE (15:12)
[2021-02-13] MEDS: CEFTRIAXONE 1 GM in DEXTROSE 5%-WATER - 50 ML IVPB SCH (15:33)
[2021-02-13] MEDS: CHLORHEXIDINE GLUCONATE 4% CLEANSER FOR DECOLONIZATION TP SCH (21:18)
[2021-02-14] MEDS: guaiFENesin/CODEINE 10 ML UNIT-DOSE CUPS PO SCH ×3 (06:02→21:25)
[2021-02-14 07:04] LABS: BASO % 0.4 % (0-2.0); EOS % 1.3 % (0-4.5); HEMOGLOBIN 10.5 GM/dL (10.7-15.3); LYMPH % 12.9 % (8-40); MCH 30.7 pg (25.7-33.7); MEAN CELL VOLUME 90.3 fl (80-96); MEAN PLT VOLUME 8.1 fl (7.5-11.1); MONO % 6.2 % (3.8-10.2); NEUT % 79.2 % (42.8-82.8); PLATELET COUNT 420 K/MM3 (134-434); RBC 3.43 M/mm3 (3.60-5.2); RDW 16.9 % (11.6-15.6); WHITE BLOOD COUNT 15.8 K/mm3 (4.0-10.0)
[2021-02-14 07:18] LABS: BLOOD UREA NITROGEN 20.2 mg/dL (7-18)
[2021-02-14 07:21] LABS: CREATININE 0.4 mg/dL (0.55-1.3)
[2021-02-14 08:47] LABS: ANISOCYTOSIS 1+; MACROCYTOSIS 0; PLATELET ESTIMATE NORMAL
[2021-02-14] MEDS: BUDESONIDE 0.5 MG/2 ML INH SUSP VIAL NEB SCH ×2 (09:02→20:30)
[2021-02-14] MEDS ORDERED: DEXTROSE 5%-WATER - 50 ML IVPB ONE (09:40)
[2021-02-14] MEDS ORDERED: cefTRIAXone SODIUM 1 GM VIAL ONE (09:40)
[2021-02-14] MEDS: CEFTRIAXONE 1 GM in DEXTROSE 5%-WATER - 50 ML IVPB SCH (10:00)
[2021-02-14] MEDS: ENOXAPARIN NA (PORCINE) 100 MG/1 ML DISP.SYRIN SQ SCH (10:01)
[2021-02-14] MEDS: CHOLECALCIFEROL (VIT D3) 1,000 UNIT (25 MCG) TABLET PO SCH (10:01)
[2021-02-14] MEDS: FAMOTIDINE 20 MG TABLET PO SCH (10:01)
[2021-02-14] MEDS: DEXAMETHASONE 4 MG TABLET (FP) PO SCH (10:01)
[2021-02-14] MEDS: ASCORBIC ACID 500 MG TABLET (FP) PO SCH ×2 (10:02→21:24)
[2021-02-14] MEDS: BACITRACIN/POLYMYXIN B SULFATE 15 GM TUBE TP SCH ×2 (10:02→21:25)
[2021-02-14] MEDS: MUPIROCIN 2% TOPICAL OINTMENT FOR DECOLONIZATION NS SCH ×2 (10:02→21:24)
[2021-02-14] MEDS: oxyCODONE HCL 5 MG TABLET PO PRN ×2 (16:22→21:34)
[2021-02-14] MEDS: APIXABAN 5 MG TABLET PO SCH (21:25)
[2021-02-14] MEDS: CHLORHEXIDINE GLUCONATE 4% CLEANSER FOR DECOLONIZATION TP SCH (21:25)
[2021-02-14] MEDS: ACETAMINOPHEN 325 MG TABLET (FP) PO PRN (21:34)
[2021-02-15] MEDS: guaiFENesin/CODEINE 10 ML UNIT-DOSE CUPS PO SCH ×3 (05:24→21:24)
[2021-02-15] MEDS ORDERED: cefTRIAXone SODIUM 1 GM VIAL ONE (07:45)
[2021-02-15] MEDS ORDERED: DEXTROSE 5%-WATER - 50 ML IVPB ONE (07:46)
[2021-02-15] MEDS: oxyCODONE HCL 5 MG TABLET PO PRN ×2 (07:59→16:28)
[2021-02-15] MEDS: ACETAMINOPHEN 325 MG TABLET (FP) PO PRN ×2 (08:00→16:27)
[2021-02-15] MEDS: BUDESONIDE 0.5 MG/2 ML INH SUSP VIAL NEB SCH ×2 (08:14→20:31)
[2021-02-15] MEDS: MUPIROCIN 2% TOPICAL OINTMENT FOR DECOLONIZATION NS SCH ×2 (08:59→21:23)
[2021-02-15] MEDS: FAMOTIDINE 20 MG TABLET PO SCH (08:59)
[2021-02-15] MEDS: APIXABAN 5 MG TABLET PO SCH ×2 (08:59→21:23)
[2021-02-15] MEDS: ASCORBIC ACID 500 MG TABLET (FP) PO SCH ×2 (09:00→21:24)
[2021-02-15] MEDS: CHOLECALCIFEROL (VIT D3) 1,000 UNIT (25 MCG) TABLET PO SCH (09:00)
[2021-02-15] MEDS: BACITRACIN/POLYMYXIN B SULFATE 15 GM TUBE TP SCH ×2 (09:02→21:24)
[2021-02-15] MEDS: CEFTRIAXONE 1 GM in DEXTROSE 5%-WATER - 50 ML IVPB SCH (09:02)
[2021-02-15] MEDS: CHLORHEXIDINE GLUCONATE 4% CLEANSER FOR DECOLONIZATION TP SCH (21:23)
[2021-02-16] MEDS: ACETAMINOPHEN 325 MG TABLET (FP) PO PRN (02:31)
[2021-02-16] MEDS: oxyCODONE HCL 5 MG TABLET PO PRN (02:32)
[2021-02-16] MEDS: guaiFENesin/CODEINE 10 ML UNIT-DOSE CUPS PO SCH ×3 (05:50→21:47)
[2021-02-16 06:52] LABS: HEMATOCRIT 33.8 % (32.4-45.2); HEMOGLOBIN 11.4 GM/dL (10.7-15.3); MCH 30.7 pg (25.7-33.7); MCHC 33.7 g/dl (32.0-36.0); MEAN CELL VOLUME 91.2 fl (80-96); PLATELET COUNT 405 K/MM3 (134-434); RBC 3.71 M/mm3 (3.60-5.2); RDW 16.7 % (11.6-15.6); WHITE BLOOD COUNT 13.7 K/mm3 (4.0-10.0)
[2021-02-16 07:08] LABS: CALCIUM 8.7 mg/dL (8.5-10.1)
[2021-02-16 07:09] LABS: ALBUMIN 2.8 g/dl (3.4-5.0); BLOOD UREA NITROGEN 13.7 mg/dL (7-18); MAGNESIUM 2.3 mg/dL (1.8-2.4)
[2021-02-16 07:12] LABS: CREATININE 0.4 mg/dL (0.55-1.3)
[2021-02-16 07:13] LABS: BILIRUBIN,TOTAL 0.3 mg/dL (0.2-1)
[2021-02-16] MEDS: BUDESONIDE 0.5 MG/2 ML INH SUSP VIAL NEB SCH ×2 (08:20→20:09)
[2021-02-16] MEDS ORDERED: DEXTROSE 5%-WATER - 50 ML IVPB ONE (09:40)
[2021-02-16] MEDS ORDERED: cefTRIAXone SODIUM 1 GM VIAL ONE (09:40)
[2021-02-16] MEDS: BACITRACIN/POLYMYXIN B SULFATE 15 GM TUBE TP SCH ×2 (10:41→21:47)
[2021-02-16] MEDS: FAMOTIDINE 20 MG TABLET PO SCH (10:41)
[2021-02-16] MEDS: APIXABAN 5 MG TABLET PO SCH ×2 (10:41→21:47)
[2021-02-16] MEDS: MUPIROCIN 2% TOPICAL OINTMENT FOR DECOLONIZATION NS SCH ×2 (10:41→21:47)
[2021-02-16] MEDS: ASCORBIC ACID 500 MG TABLET (FP) PO SCH ×2 (10:42→21:47)
[2021-02-16] MEDS: CHOLECALCIFEROL (VIT D3) 1,000 UNIT (25 MCG) TABLET PO SCH (10:42)
[2021-02-16] MEDS: CEFTRIAXONE 1 GM in DEXTROSE 5%-WATER - 50 ML IVPB SCH (10:42)
[2021-02-16] MEDS ORDERED: PT OWN MED DRAWER 7, Y5N ONE (20:23)
[2021-02-16] MEDS: CHLORHEXIDINE GLUCONATE 4% CLEANSER FOR DECOLONIZATION TP SCH (21:47)
[2021-02-16] MEDS ORDERED: MAG HYDROX/AL HYDROX/SIMETH -MYLANTA- ORAL SUSPENSION PO SCH (22:00)
[2021-02-17] MEDS: guaiFENesin/CODEINE 10 ML UNIT-DOSE CUPS PO SCH ×3 (06:25→21:59)
[2021-02-17] MEDS: MAG HYDROX/AL HYDROX/SIMETH 30 ML UNIT-DOSE CUP PO SCH ×3 (06:25→21:59)
[2021-02-17] MEDS: BUDESONIDE 0.5 MG/2 ML INH SUSP VIAL NEB SCH ×2 (09:05→20:19)
[2021-02-17] MEDS ORDERED: cefTRIAXone SODIUM 1 GM VIAL ONE (10:02)
[2021-02-17] MEDS ORDERED: DEXTROSE 5%-WATER - 50 ML IVPB ONE (10:02)
[2021-02-17] MEDS: MUPIROCIN 2% TOPICAL OINTMENT FOR DECOLONIZATION NS SCH (10:06)
[2021-02-17] MEDS: APIXABAN 5 MG TABLET PO SCH ×2 (10:06→21:59)
[2021-02-17] MEDS: ASCORBIC ACID 500 MG TABLET (FP) PO SCH ×2 (10:07→21:59)
[2021-02-17] MEDS: CEFTRIAXONE 1 GM in DEXTROSE 5%-WATER - 50 ML IVPB SCH (10:07)
[2021-02-17] MEDS: FAMOTIDINE 20 MG TABLET PO SCH (10:07)
[2021-02-17] MEDS: CHOLECALCIFEROL (VIT D3) 1,000 UNIT (25 MCG) TABLET PO SCH (10:07)
[2021-02-17] MEDS: BACITRACIN/POLYMYXIN B SULFATE 15 GM TUBE TP SCH ×2 (15:37→22:01)
[2021-02-17] MEDS: VANCOMYCIN 250 MG/5 ML ORAL SOLUTION PO SCH (20:10)
[2021-02-17] MEDS: BENZOCAINE/MENTH/CETYLPYRD CL 1 EACH LOZENGE MM PRN (20:43)
[2021-02-17] MEDS: CHLORHEXIDINE GLUCONATE 4% CLEANSER FOR DECOLONIZATION TP SCH (21:59)
[2021-02-17] MEDS: ACETAMINOPHEN 650 MG/20.3 ML ORAL SOLUTION (CUPS) PO PRN (22:02)
[2021-02-18] MEDS: VANCOMYCIN 250 MG/5 ML ORAL SOLUTION PO SCH ×4 (00:24→20:39)
[2021-02-18] MEDS: MAG HYDROX/AL HYDROX/SIMETH 30 ML UNIT-DOSE CUP PO SCH ×3 (05:26→21:01)
[2021-02-18] MEDS: guaiFENesin/CODEINE 10 ML UNIT-DOSE CUPS PO SCH ×3 (05:26→21:02)
[2021-02-18] MEDS: BUDESONIDE 0.5 MG/2 ML INH SUSP VIAL NEB SCH (08:10)
[2021-02-18] MEDS: CHOLECALCIFEROL (VIT D3) 1,000 UNIT (25 MCG) TABLET PO SCH (11:18)
[2021-02-18] MEDS: FAMOTIDINE 20 MG TABLET PO SCH (11:18)
[2021-02-18] MEDS: ASCORBIC ACID 500 MG TABLET (FP) PO SCH ×2 (11:19→21:02)
[2021-02-18] MEDS: APIXABAN 5 MG TABLET PO SCH ×2 (11:19→21:01)
[2021-02-18] MEDS: BACITRACIN/POLYMYXIN B SULFATE 15 GM TUBE TP SCH ×2 (20:04→21:02)
[2021-02-18] MEDS: CHLORHEXIDINE GLUCONATE 4% CLEANSER FOR DECOLONIZATION TP SCH (21:02)
[2021-02-18] MEDS: oxyCODONE HCL 5 MG TABLET PO PRN (21:02)
[2021-02-18] MEDS: ACETAMINOPHEN 325 MG TABLET (FP) PO PRN (21:03)
[2021-02-19] MEDS: VANCOMYCIN 250 MG/5 ML ORAL SOLUTION PO SCH ×5 (00:21→23:23)
[2021-02-19] MEDS: BENZOCAINE/MENTH/CETYLPYRD CL 1 EACH LOZENGE MM PRN ×2 (01:59→22:13)
[2021-02-19] MEDS: MAG HYDROX/AL HYDROX/SIMETH 30 ML UNIT-DOSE CUP PO SCH ×3 (05:26→21:00)
[2021-02-19] MEDS: guaiFENesin/CODEINE 10 ML UNIT-DOSE CUPS PO SCH ×3 (05:26→21:00)
[2021-02-19] MEDS: oxyCODONE HCL 5 MG TABLET PO PRN ×3 (05:47→22:32)
[2021-02-19] MEDS: ACETAMINOPHEN 325 MG TABLET (FP) PO PRN ×2 (05:50→22:33)
[2021-02-19] MEDS: BUDESONIDE 0.5 MG/2 ML INH SUSP VIAL NEB SCH ×2 (08:37→20:15)
[2021-02-19] MEDS ORDERED: PT OWN MED DRAWER 7, Y5N ONE ×2 (09:15→13:23)
[2021-02-19] MEDS: CHOLECALCIFEROL (VIT D3) 1,000 UNIT (25 MCG) TABLET PO SCH (09:25)
[2021-02-19] MEDS: FAMOTIDINE 20 MG TABLET PO SCH (09:26)
[2021-02-19] MEDS: APIXABAN 5 MG TABLET PO SCH ×2 (09:26→21:00)
[2021-02-19] MEDS: BACITRACIN/POLYMYXIN B SULFATE 15 GM TUBE TP SCH ×2 (09:26→21:00)
[2021-02-19] MEDS: ASCORBIC ACID 500 MG TABLET (FP) PO SCH ×2 (09:26→21:00)
[2021-02-19] MEDS: ACETAMINOPHEN 650 MG/20.3 ML ORAL SOLUTION (CUPS) PO PRN (17:27)
[2021-02-19] MEDS: CHLORHEXIDINE GLUCONATE 4% CLEANSER FOR DECOLONIZATION TP SCH (21:00)
[2021-02-20] MEDS: MAG HYDROX/AL HYDROX/SIMETH 30 ML UNIT-DOSE CUP PO SCH ×3 (05:53→21:00)
[2021-02-20] MEDS: guaiFENesin/CODEINE 10 ML UNIT-DOSE CUPS PO SCH ×3 (05:53→21:02)
[2021-02-20] MEDS: VANCOMYCIN 250 MG/5 ML ORAL SOLUTION PO SCH ×4 (05:53→23:28)
[2021-02-20] MEDS: BUDESONIDE 0.5 MG/2 ML INH SUSP VIAL NEB SCH ×3 (07:56→20:35)
[2021-02-20] MEDS ORDERED: PT OWN MED DRAWER 7, Y5N ONE (09:06)
[2021-02-20] MEDS: APIXABAN 5 MG TABLET PO SCH ×2 (09:12→21:01)
[2021-02-20] MEDS: FAMOTIDINE 20 MG TABLET PO SCH (09:13)
[2021-02-20] MEDS: CHOLECALCIFEROL (VIT D3) 1,000 UNIT (25 MCG) TABLET PO SCH (09:14)
[2021-02-20] MEDS: BACITRACIN/POLYMYXIN B SULFATE 15 GM TUBE TP SCH (09:15)
[2021-02-20] MEDS: ASCORBIC ACID 500 MG TABLET (FP) PO SCH ×2 (09:15→21:01)
[2021-02-20] MEDS ORDERED: SODIUM CHLORIDE NASAL SPRAY 44 ML BOTTLE NS PRN (18:22)
[2021-02-20] MEDS ORDERED: TRIMETHOBENZAMIDE HCL 300 MG CAPSULE PO PRN (18:22)
[2021-02-20] MEDS ORDERED: ALBUTEROL SO4 HFA INHALER IH PRN (18:22)
[2021-02-20] MEDS ORDERED: ONDANSETRON 4 MG/2 ML VIAL IVPB PRN (18:22)
[2021-02-20] MEDS ORDERED: BENZOCAINE/MENTH/CETYLPYRD CL 1 EACH LOZENGE MM PRN (18:22)
[2021-02-20] MEDS ORDERED: oxyCODONE HCL 5 MG TABLET PO PRN (18:22)
[2021-02-20] MEDS ORDERED: ACETAMINOPHEN 325 MG TABLET (FP) PO PRN (18:22)
[2021-02-20] MEDS ORDERED: MORPHINE SULFATE 2 MG/ML VIAL IVPUSH PRN (18:22)
[2021-02-20] MEDS ORDERED: SIMETHICONE 80 MG TAB.CHEW (FP) PO PRN (18:22)
[2021-02-20] MEDS ORDERED: dilTIAZem HCL 50 MG/10 ML - 10 ML VIAL IVPUSH PRN (18:22)
[2021-02-20] MEDS ORDERED: ACETAMINOPHEN 650 MG/20.3 ML ORAL SOLUTION (CUPS) PO PRN (18:22)
[2021-02-20] MEDS ORDERED: BACITRACIN/POLYMYXIN B SULFATE 15 GM TUBE TP SCH (22:00)
[2021-02-20] MEDS ORDERED: CHLORHEXIDINE GLUCONATE 4% CLEANSER FOR DECOLONIZATION TP SCH (22:00)
[2021-02-20] MEDS: morphine SULFATE 4 MG/ML VIAL IVPUSH PRN (23:28)
[2021-02-21] MEDS ORDERED: LORazepam 2 MG/ML SDV VIAL IVPUSH ONE (01:45)
[2021-02-21] MEDS: morphine SULFATE 4 MG/ML VIAL IVPUSH PRN ×2 (03:15→12:00)
[2021-02-21] MEDS ORDERED: MORPHINE SULFATE 2 MG/ML VIAL IVPUSH ONE ×2 (04:15→04:45)
[2021-02-21] MEDS: guaiFENesin/CODEINE 10 ML UNIT-DOSE CUPS PO SCH ×3 (05:12→21:35)
[2021-02-21] MEDS: MAG HYDROX/AL HYDROX/SIMETH 30 ML UNIT-DOSE CUP PO SCH ×3 (05:12→21:34)
[2021-02-21] MEDS: VANCOMYCIN 250 MG/5 ML ORAL SOLUTION PO SCH ×3 (05:12→18:05)
[2021-02-21 06:09] LABS: ARTERIAL BLD GAS O2 SATURATION 98.6 mmHg (95-98); ARTERIAL BLOOD GAS BASE EXCESS 5.3 mmol/L (-2-2); ARTERIAL BLOOD GAS PO2 140.1 mmHg (80-100); ARTERIAL BLOOD GAS pH 7.346 (7.350-7.450)
[2021-02-21 06:11] LABS: ALLENS TEST POSITIVE
[2021-02-21 06:33] LABS: BASO % 0.5 % (0-2.0); HEMATOCRIT 32.1 % (32.4-45.2); HEMOGLOBIN 10.7 GM/dL (10.7-15.3); LYMPH % 8.4 % (8-40); MCH 30.2 pg (25.7-33.7); MCHC 33.3 g/dl (32.0-36.0); MEAN CELL VOLUME 90.6 fl (80-96); MEAN PLT VOLUME 8.1 fl (7.5-11.1); MONO % 6.3 % (3.8-10.2); NEUT % 80.8 % (42.8-82.8); PLATELET COUNT 408 K/MM3 (134-434); RBC 3.55 M/mm3 (3.60-5.2); RDW 16.9 % (11.6-15.6); WHITE BLOOD COUNT 14.8 K/mm3 (4.0-10.0)
[2021-02-21] MEDS: BUDESONIDE 0.5 MG/2 ML INH SUSP VIAL NEB SCH ×2 (08:25→20:15)
[2021-02-21 08:56] LABS: ARTERIAL BLD GAS O2 SATURATION 98.5 mmHg (95-98); ARTERIAL BLOOD GAS BASE EXCESS 5.2 mmol/L (-2-2); ARTERIAL BLOOD GAS PO2 131.4 mmHg (80-100); ARTERIAL BLOOD GAS pH 7.367 (7.350-7.450)
[2021-02-21 09:00] LABS: ALLENS TEST POSITIVE
[2021-02-21] MEDS ORDERED: FAMOTIDINE 20 MG TABLET PO SCH (10:00)
[2021-02-21] MEDS ORDERED: CHOLECALCIFEROL (VIT D3) 1,000 UNIT (25 MCG) TABLET PO SCH (10:00)
[2021-02-21 10:15] LABS: ANISOCYTOSIS 2+; MACROCYTOSIS 0; PLATELET ESTIMATE NORMAL
[2021-02-21] MEDS: APIXABAN 5 MG TABLET PO SCH ×2 (10:17→21:35)
[2021-02-21] MEDS: ASCORBIC ACID 500 MG TABLET (FP) PO SCH ×2 (10:18→21:35)
[2021-02-21] MEDS: MUPIROCIN 2% TOPICAL OINTMENT FOR DECOLONIZATION NS SCH ×2 (12:17→21:35)
[2021-02-21] MEDS ORDERED: HYDROmorphone HCl 2 MG/ML VIAL IVPUSH ONE (16:13)
[2021-02-21] MEDS ORDERED: SODIUM CHLORIDE NASAL SPRAY 44 ML BOTTLE NS PRN (19:24)
[2021-02-21] MEDS ORDERED: dilTIAZem HCL 50 MG/10 ML - 10 ML VIAL IVPUSH PRN (19:24)
[2021-02-21] MEDS ORDERED: oxyCODONE HCL 5 MG TABLET PO PRN (19:24)
[2021-02-21] MEDS ORDERED: ALBUTEROL SO4 HFA INHALER IH PRN (19:24)
[2021-02-21] MEDS ORDERED: ACETAMINOPHEN 650 MG/20.3 ML ORAL SOLUTION (CUPS) PO PRN (19:24)
[2021-02-21] MEDS: CHLORHEXIDINE GLUCONATE 4% CLEANSER FOR DECOLONIZATION TP SCH ×2 (21:36→22:29)
[2021-02-21] MEDS: BACITRACIN/POLYMYXIN B SULFATE 15 GM TUBE TP SCH (21:37)
[2021-02-21] MEDS ORDERED: PT OWN MED DRAWER 7, Y5N ONE (21:46)
[2021-02-21] MEDS ORDERED: HYDROmorphone HCl 2 MG/ML VIAL IVPUSH STA (22:10)
[2021-02-22] MEDS: VANCOMYCIN 250 MG/5 ML ORAL SOLUTION PO SCH ×5 (00:34→23:05)
[2021-02-22] MEDS: MAG HYDROX/AL HYDROX/SIMETH 30 ML UNIT-DOSE CUP PO SCH ×3 (05:28→21:17)
[2021-02-22] MEDS: morphine SULFATE 4 MG/ML VIAL IVPUSH PRN ×2 (05:33→10:32)
[2021-02-22 06:26] LABS: ALBUMIN 2.7 g/dl (3.4-5.0); CALCIUM 8.5 mg/dL (8.5-10.1)
[2021-02-22 06:31] LABS: BILIRUBIN,TOTAL 0.4 mg/dL (0.2-1); CREATININE 0.3 mg/dL (0.55-1.3); TOT PROT 6.4 g/dl (6.4-8.2)
[2021-02-22] MEDS: BUDESONIDE 0.5 MG/2 ML INH SUSP VIAL NEB SCH ×2 (08:30→20:08)
[2021-02-22] MEDS: guaiFENesin/CODEINE 10 ML UNIT-DOSE CUPS PO SCH ×4 (09:36→21:17)
[2021-02-22] MEDS: CHOLECALCIFEROL (VIT D3) 1,000 UNIT (25 MCG) TABLET PO SCH (09:46)
[2021-02-22] MEDS: ASCORBIC ACID 500 MG TABLET (FP) PO SCH ×2 (09:46→21:19)
[2021-02-22] MEDS: APIXABAN 5 MG TABLET PO SCH ×2 (09:47→21:17)
[2021-02-22] MEDS: FAMOTIDINE 20 MG TABLET PO SCH (09:47)
[2021-02-22] MEDS ORDERED: FENTANYL PATCH WASTE TD PRN (12:15)
[2021-02-22] MEDS: fentaNYL 75mcg/hr PATCH.TD72 TD SCH (13:26)
[2021-02-22] MEDS: HYDROmorphone HCl 2 MG/ML VIAL IVPUSH PRN ×2 (14:03→18:58)
[2021-02-22] MEDS: LIDOCAINE PATCH REMOVAL MC SCH (21:17)
[2021-02-22] MEDS: CHLORHEXIDINE GLUCONATE 4% CLEANSER FOR DECOLONIZATION TP SCH ×2 (21:17→22:40)
[2021-02-22] MEDS: MUPIROCIN 2% TOPICAL OINTMENT FOR DECOLONIZATION NS SCH (21:19)
[2021-02-22] MEDS: BACITRACIN/POLYMYXIN B SULFATE 15 GM TUBE TP SCH (22:39)
[2021-02-23] MEDS: HYDROmorphone HCl 2 MG/ML VIAL IVPUSH PRN ×4 (01:30→20:32)
[2021-02-23] MEDS: guaiFENesin/CODEINE 10 ML UNIT-DOSE CUPS PO SCH ×3 (05:37→21:31)
[2021-02-23] MEDS: MAG HYDROX/AL HYDROX/SIMETH 30 ML UNIT-DOSE CUP PO SCH ×3 (05:37→21:31)
[2021-02-23] MEDS: VANCOMYCIN 250 MG/5 ML ORAL SOLUTION PO SCH ×4 (05:37→23:32)
[2021-02-23] MEDS: BUDESONIDE 0.5 MG/2 ML INH SUSP VIAL NEB SCH ×2 (08:23→20:43)
[2021-02-23] MEDS ORDERED: PT OWN MED DRAWER 7, Y5N ONE (08:57)
[2021-02-23] MEDS: BACITRACIN/POLYMYXIN B SULFATE 15 GM TUBE TP SCH ×2 (09:08→21:31)
[2021-02-23] MEDS: LIDOCAINE 5% TOPICAL PATCH TP SCH (09:08)
[2021-02-23] MEDS: MUPIROCIN 2% TOPICAL OINTMENT FOR DECOLONIZATION NS SCH ×2 (09:08→21:31)
[2021-02-23] MEDS: APIXABAN 5 MG TABLET PO SCH ×2 (09:09→21:31)
[2021-02-23] MEDS: ASCORBIC ACID 500 MG TABLET (FP) PO SCH ×2 (09:09→21:31)
[2021-02-23] MEDS: CHOLECALCIFEROL (VIT D3) 1,000 UNIT (25 MCG) TABLET PO SCH (09:09)
[2021-02-23] MEDS: FAMOTIDINE 20 MG TABLET PO SCH (09:10)
[2021-02-23] MEDS: morphine SULFATE 4 MG/ML VIAL IVPUSH PRN (16:18)
[2021-02-23] MEDS: LIDOCAINE PATCH REMOVAL MC SCH (21:31)
[2021-02-23] MEDS: CHLORHEXIDINE GLUCONATE 4% CLEANSER FOR DECOLONIZATION TP SCH ×2 (21:31→23:32)
[2021-02-24] MEDS: VANCOMYCIN 250 MG/5 ML ORAL SOLUTION PO SCH ×4 (05:20→23:19)
[2021-02-24] MEDS: guaiFENesin/CODEINE 10 ML UNIT-DOSE CUPS PO SCH ×3 (05:20→21:00)
[2021-02-24] MEDS: MAG HYDROX/AL HYDROX/SIMETH 30 ML UNIT-DOSE CUP PO SCH ×3 (05:20→21:00)
[2021-02-24] MEDS: HYDROmorphone HCl 2 MG/ML VIAL IVPUSH PRN ×4 (06:27→19:16)
[2021-02-24 06:48] LABS: BASO % 0.4 % (0-2.0); EOS % 5.5 % (0-4.5); HEMATOCRIT 28.6 % (32.4-45.2); HEMOGLOBIN 9.4 GM/dL (10.7-15.3); LYMPH % 12.4 % (8-40); MCH 29.8 pg (25.7-33.7); MCHC 32.8 g/dl (32.0-36.0); MEAN CELL VOLUME 91.1 fl (80-96); MEAN PLT VOLUME 8.2 fl (7.5-11.1); NEUT % 73.7 % (42.8-82.8); PLATELET COUNT 360 K/MM3 (134-434); RBC 3.14 M/mm3 (3.60-5.2); RDW 16.6 % (11.6-15.6); WHITE BLOOD COUNT 11.7 K/mm3 (4.0-10.0)
[2021-02-24 07:10] LABS: ALBUMIN 2.5 g/dl (3.4-5.0); CALCIUM 8.4 mg/dL (8.5-10.1); MAGNESIUM 2.4 mg/dL (1.8-2.4)
[2021-02-24 07:13] LABS: CREATININE 0.3 mg/dL (0.55-1.3)
[2021-02-24 07:14] LABS: BILIRUBIN,TOTAL 0.2 mg/dL (0.2-1); TOT PROT 6.1 g/dl (6.4-8.2)
[2021-02-24] MEDS: BUDESONIDE 0.5 MG/2 ML INH SUSP VIAL NEB SCH ×2 (08:24→21:00)
[2021-02-24] MEDS: CHOLECALCIFEROL (VIT D3) 1,000 UNIT (25 MCG) TABLET PO SCH (10:17)
[2021-02-24] MEDS: ASCORBIC ACID 500 MG TABLET (FP) PO SCH ×2 (10:17→21:00)
[2021-02-24] MEDS: APIXABAN 5 MG TABLET PO SCH ×2 (10:17→22:00)
[2021-02-24] MEDS: BACITRACIN/POLYMYXIN B SULFATE 15 GM TUBE TP SCH ×2 (10:18→22:00)
[2021-02-24] MEDS: MUPIROCIN 2% TOPICAL OINTMENT FOR DECOLONIZATION NS SCH ×2 (10:18→21:00)
[2021-02-24] MEDS: FAMOTIDINE 20 MG TABLET PO SCH (10:18)
[2021-02-24] MEDS: LIDOCAINE 5% TOPICAL PATCH TP SCH (10:23)
[2021-02-24] MEDS: LIDOCAINE PATCH REMOVAL MC SCH (21:00)
[2021-02-24] MEDS: CHLORHEXIDINE GLUCONATE 4% CLEANSER FOR DECOLONIZATION TP SCH ×2 (21:00)
[2021-02-24] MEDS ORDERED: SENNOSIDES 8.6MG TABLET (FP) PO PRN (21:09)
[2021-02-24] MEDS ORDERED: SENNOSIDES 8.6MG TABLET (FP) PO SCH (22:00)
[2021-02-24] MEDS ORDERED: INSULIN (NOVOLOG) ASPART 100 UNITS/ML 10ML VIAL ONE (23:15)
[2021-02-24] MEDS: morphine SULFATE 4 MG/ML VIAL IVPUSH PRN (23:19)
[2021-02-25] MEDS: HYDROmorphone HCl 2 MG/ML VIAL IVPUSH PRN ×2 (03:27→09:52)
[2021-02-25] MEDS ORDERED: INSULIN (NOVOLOG) ASPART 100 UNITS/ML 10ML VIAL ONE (05:49)
[2021-02-25] MEDS: ACETAMINOPHEN 325 MG TABLET (FP) PO PRN (07:02)
[2021-02-25] MEDS: guaiFENesin/CODEINE 10 ML UNIT-DOSE CUPS PO SCH ×3 (07:03→21:06)
[2021-02-25] MEDS: MAG HYDROX/AL HYDROX/SIMETH 30 ML UNIT-DOSE CUP PO SCH ×3 (07:03→21:06)
[2021-02-25] MEDS: VANCOMYCIN 250 MG/5 ML ORAL SOLUTION PO SCH ×3 (07:03→17:45)
[2021-02-25] MEDS: BUDESONIDE 0.5 MG/2 ML INH SUSP VIAL NEB SCH ×2 (08:00→20:50)
[2021-02-25] MEDS: LIDOCAINE 5% TOPICAL PATCH TP SCH (09:51)
[2021-02-25] MEDS: APIXABAN 5 MG TABLET PO SCH ×2 (09:53→21:06)
[2021-02-25] MEDS: MUPIROCIN 2% TOPICAL OINTMENT FOR DECOLONIZATION NS SCH ×2 (09:53→21:05)
[2021-02-25] MEDS: ASCORBIC ACID 500 MG TABLET (FP) PO SCH ×2 (09:53→21:06)
[2021-02-25] MEDS: CHOLECALCIFEROL (VIT D3) 1,000 UNIT (25 MCG) TABLET PO SCH (09:53)
[2021-02-25] MEDS: FAMOTIDINE 20 MG TABLET PO SCH (09:53)
[2021-02-25] MEDS: BACITRACIN/POLYMYXIN B SULFATE 15 GM TUBE TP SCH ×2 (09:54→21:05)
[2021-02-25] MEDS ORDERED: DOCUSATE SODIUM 100 MG CAPSULE (FP) PO PRN (10:00)
[2021-02-25] MEDS ORDERED: POLYETHYLENE GLYCOL 3350 119 GM BTL PO ONE (10:00)
[2021-02-25] MEDS: fentaNYL 75mcg/hr PATCH.TD72 TD SCH (12:22)
[2021-02-25] MEDS: morphine SULFATE 4 MG/ML VIAL IVPUSH PRN (15:00)
[2021-02-25] MEDS: CHLORHEXIDINE GLUCONATE 4% CLEANSER FOR DECOLONIZATION TP SCH ×2 (21:06)
[2021-02-25] MEDS: LIDOCAINE PATCH REMOVAL MC SCH (21:06)
[2021-02-25] MEDS ORDERED: morphine SULFATE 4 MG/ML VIAL ONE (23:35)
[2021-02-26] MEDS: VANCOMYCIN 250 MG/5 ML ORAL SOLUTION PO SCH ×5 (00:55→23:19)
[2021-02-26] MEDS ORDERED: INSULIN (NOVOLOG) ASPART 100 UNITS/ML 10ML VIAL ONE (06:18)
[2021-02-26] MEDS: MAG HYDROX/AL HYDROX/SIMETH 30 ML UNIT-DOSE CUP PO SCH ×3 (06:22→21:53)
[2021-02-26] MEDS: guaiFENesin/CODEINE 10 ML UNIT-DOSE CUPS PO SCH ×3 (06:22→21:53)
[2021-02-26] MEDS: BUDESONIDE 0.5 MG/2 ML INH SUSP VIAL NEB SCH ×2 (08:09→20:20)
[2021-02-26] MEDS: ASCORBIC ACID 500 MG TABLET (FP) PO SCH ×2 (09:47→21:53)
[2021-02-26] MEDS: FAMOTIDINE 20 MG TABLET PO SCH (09:47)
[2021-02-26] MEDS: CHOLECALCIFEROL (VIT D3) 1,000 UNIT (25 MCG) TABLET PO SCH (09:47)
[2021-02-26] MEDS: APIXABAN 5 MG TABLET PO SCH ×2 (09:47→21:53)
[2021-02-26] MEDS: LIDOCAINE 5% TOPICAL PATCH TP SCH (09:48)
[2021-02-26] MEDS: BACITRACIN/POLYMYXIN B SULFATE 15 GM TUBE TP SCH ×2 (09:50→21:54)
[2021-02-26] MEDS ORDERED: PT OWN MED DRAWER 7, Y5N ONE ×2 (14:26→21:43)
[2021-02-26] MEDS: ACETAMINOPHEN 325 MG TABLET (FP) PO PRN (14:55)
[2021-02-26] MEDS: BENZOCAINE/MENTH/CETYLPYRD CL 1 EACH LOZENGE MM PRN (21:53)
[2021-02-26] MEDS: CHLORHEXIDINE GLUCONATE 4% CLEANSER FOR DECOLONIZATION TP SCH (21:54)
[2021-02-26] MEDS: LIDOCAINE PATCH REMOVAL MC SCH (21:54)
[2021-02-26] MEDS ORDERED: ACETAMINOPHEN INJECTION 100 ML IVPB ONE (23:41)
[2021-02-26] MEDS ORDERED: ACETAMINOPHEN 1000 MG/100 ML VIAL (NON FORMULARY) IVPB ONE (23:59)
[2021-02-27] MEDS: MAG HYDROX/AL HYDROX/SIMETH 30 ML UNIT-DOSE CUP PO SCH ×3 (06:07→21:18)
[2021-02-27] MEDS: guaiFENesin/CODEINE 10 ML UNIT-DOSE CUPS PO SCH ×3 (06:07→21:17)
[2021-02-27] MEDS: BENZOCAINE/MENTH/CETYLPYRD CL 1 EACH LOZENGE MM PRN (06:07)
[2021-02-27] MEDS: VANCOMYCIN 250 MG/5 ML ORAL SOLUTION PO SCH ×4 (06:07→23:54)
[2021-02-27 07:10] LABS: BASO % 0.5 % (0-2.0); EOS % 6.7 % (0-4.5); HEMATOCRIT 29.6 % (32.4-45.2); HEMOGLOBIN 9.7 GM/dL (10.7-15.3); LYMPH % 14.9 % (8-40); MCH 29.8 pg (25.7-33.7); MCHC 32.9 g/dl (32.0-36.0); MEAN CELL VOLUME 90.7 fl (80-96); MEAN PLT VOLUME 8.3 fl (7.5-11.1); MONO % 7.6 % (3.8-10.2); NEUT % 70.3 % (42.8-82.8); PLATELET COUNT 371 K/MM3 (134-434); RBC 3.26 M/mm3 (3.60-5.2); RDW 16.6 % (11.6-15.6); WHITE BLOOD COUNT 12.8 K/mm3 (4.0-10.0)
[2021-02-27 07:14] LABS: ALBUMIN 2.6 g/dl (3.4-5.0); BLOOD UREA NITROGEN 9.5 mg/dL (7-18); CALCIUM 8.9 mg/dL (8.5-10.1); MAGNESIUM 2.4 mg/dL (1.8-2.4)
[2021-02-27 07:17] LABS: CREATININE 0.3 mg/dL (0.55-1.3); PHOSPHOROUS 4.7 mg/dL (2.5-4.9)
[2021-02-27 07:19] LABS: BILIRUBIN,TOTAL 0.2 mg/dL (0.2-1); TOT PROT 6.6 g/dl (6.4-8.2)
[2021-02-27] MEDS: BUDESONIDE 0.5 MG/2 ML INH SUSP VIAL NEB SCH ×2 (09:23→20:31)
[2021-02-27 10:41] LABS: ANISOCYTOSIS 1+; MACROCYTOSIS 1+; PLATELET ESTIMATE NORMAL; TOXIC GRANULATION 1+
[2021-02-27] MEDS ORDERED: morphine SULFATE 4 MG/ML VIAL ONE (10:49)
[2021-02-27] MEDS ORDERED: morphine SULFATE 4 MG/ML VIAL IVPUSH ONE (11:00)
[2021-02-27] MEDS: BACITRACIN/POLYMYXIN B SULFATE 15 GM TUBE TP SCH ×2 (11:18→21:18)
[2021-02-27] MEDS: FAMOTIDINE 20 MG TABLET PO SCH (11:18)
[2021-02-27] MEDS: ASCORBIC ACID 500 MG TABLET (FP) PO SCH ×2 (11:18→21:17)
[2021-02-27] MEDS: CHOLECALCIFEROL (VIT D3) 1,000 UNIT (25 MCG) TABLET PO SCH (11:18)
[2021-02-27] MEDS: APIXABAN 5 MG TABLET PO SCH ×2 (11:18→21:17)
[2021-02-27] MEDS: LIDOCAINE 5% TOPICAL PATCH TP SCH (11:19)
[2021-02-27] MEDS: SIMETHICONE 80 MG TAB.CHEW (FP) PO PRN (16:00)
[2021-02-27] MEDS ORDERED: PT OWN MED DRAWER 7, Y5N ONE (16:11)
[2021-02-27] MEDS: TRIMETHOBENZAMIDE HCL 300 MG CAPSULE PO PRN (16:16)
[2021-02-27] MEDS: CHLORHEXIDINE GLUCONATE 4% CLEANSER FOR DECOLONIZATION TP SCH (21:17)
[2021-02-27] MEDS: LIDOCAINE PATCH REMOVAL MC SCH (21:17)
[2021-02-28] MEDS: VANCOMYCIN 250 MG/5 ML ORAL SOLUTION PO SCH ×3 (05:32→18:26)
[2021-02-28] MEDS: guaiFENesin/CODEINE 10 ML UNIT-DOSE CUPS PO SCH ×2 (05:32→15:00)
[2021-02-28] MEDS: MAG HYDROX/AL HYDROX/SIMETH 30 ML UNIT-DOSE CUP PO SCH ×3 (05:32→21:24)
[2021-02-28] MEDS: BUDESONIDE 0.5 MG/2 ML INH SUSP VIAL NEB SCH ×2 (09:14→20:15)
[2021-02-28] MEDS: APIXABAN 5 MG TABLET PO SCH ×2 (11:44→21:24)
[2021-02-28] MEDS: ASCORBIC ACID 500 MG TABLET (FP) PO SCH ×2 (11:45→21:24)
[2021-02-28] MEDS: CHOLECALCIFEROL (VIT D3) 1,000 UNIT (25 MCG) TABLET PO SCH (12:03)
[2021-02-28] MEDS: BACITRACIN/POLYMYXIN B SULFATE 15 GM TUBE TP SCH ×2 (12:04→21:24)
[2021-02-28] MEDS: LIDOCAINE 5% TOPICAL PATCH TP SCH (12:04)
[2021-02-28] MEDS: FAMOTIDINE 20 MG TABLET PO SCH (12:15)
[2021-02-28] MEDS: fentaNYL 75mcg/hr PATCH.TD72 TD SCH (12:15)
[2021-02-28] MEDS ORDERED: PT OWN MED DRAWER 7, Y5N ONE (18:33)
[2021-02-28] MEDS: LIDOCAINE PATCH REMOVAL MC SCH (21:24)
[2021-02-28] MEDS: CHLORHEXIDINE GLUCONATE 4% CLEANSER FOR DECOLONIZATION TP SCH (21:24)
[2021-02-28] MEDS: ACETAMINOPHEN 325 MG TABLET (FP) PO PRN (21:25)
[2021-03-01] MEDS: MAG HYDROX/AL HYDROX/SIMETH 30 ML UNIT-DOSE CUP PO SCH ×3 (05:19→21:12)
[2021-03-01] MEDS: BUDESONIDE 0.5 MG/2 ML INH SUSP VIAL NEB SCH ×2 (07:30→19:53)
[2021-03-01] MEDS: FAMOTIDINE 20 MG TABLET PO SCH (10:35)
[2021-03-01] MEDS: APIXABAN 5 MG TABLET PO SCH ×2 (10:35→21:12)
[2021-03-01] MEDS: LIDOCAINE 5% TOPICAL PATCH TP SCH (10:35)
[2021-03-01] MEDS: BACITRACIN/POLYMYXIN B SULFATE 15 GM TUBE TP SCH ×2 (10:35→21:12)
[2021-03-01] MEDS: CHOLECALCIFEROL (VIT D3) 1,000 UNIT (25 MCG) TABLET PO SCH (10:35)
[2021-03-01] MEDS: ASCORBIC ACID 500 MG TABLET (FP) PO SCH ×2 (10:35→21:12)
[2021-03-01] MEDS: CHLORHEXIDINE GLUCONATE 4% CLEANSER FOR DECOLONIZATION TP SCH (21:12)
[2021-03-01] MEDS: LIDOCAINE PATCH REMOVAL MC SCH (21:12)
[2021-03-01] MEDS: ACETAMINOPHEN 325 MG TABLET (FP) PO PRN (21:20)
[2021-03-02] MEDS: MAG HYDROX/AL HYDROX/SIMETH 30 ML UNIT-DOSE CUP PO SCH ×3 (05:17→22:00)
[2021-03-02 07:49] LABS: BASO % 0.7 % (0-2.0); HEMATOCRIT 30.2 % (32.4-45.2); HEMOGLOBIN 9.9 GM/dL (10.7-15.3); LYMPH % 16.7 % (8-40); MCH 29.5 pg (25.7-33.7); MCHC 32.7 g/dl (32.0-36.0); MEAN CELL VOLUME 90.1 fl (80-96); MEAN PLT VOLUME 8.1 fl (7.5-11.1); MONO % 7.1 % (3.8-10.2); NEUT % 69.5 % (42.8-82.8); PLATELET COUNT 358 K/MM3 (134-434); RBC 3.36 M/mm3 (3.60-5.2); RDW 16.9 % (11.6-15.6); WHITE BLOOD COUNT 13.1 K/mm3 (4.0-10.0)
[2021-03-02 08:04] LABS: CALCIUM 8.6 mg/dL (8.5-10.1)
[2021-03-02 08:05] LABS: ALBUMIN 2.8 g/dl (3.4-5.0); BLOOD UREA NITROGEN 9.2 mg/dL (7-18); MAGNESIUM 2.4 mg/dL (1.8-2.4)
[2021-03-02 08:08] LABS: CREATININE 0.4 mg/dL (0.55-1.3)
[2021-03-02 08:09] LABS: BILIRUBIN,TOTAL 0.2 mg/dL (0.2-1); PHOSPHOROUS 4.6 mg/dL (2.5-4.9); TOT PROT 6.8 g/dl (6.4-8.2)
[2021-03-02] MEDS: BUDESONIDE 0.5 MG/2 ML INH SUSP VIAL NEB SCH (08:20)
[2021-03-02] MEDS: LIDOCAINE 5% TOPICAL PATCH TP SCH (09:19)
[2021-03-02] MEDS: APIXABAN 5 MG TABLET PO SCH ×2 (09:19→22:47)
[2021-03-02] MEDS: ASCORBIC ACID 500 MG TABLET (FP) PO SCH ×2 (09:20→22:42)
[2021-03-02] MEDS: FAMOTIDINE 20 MG TABLET PO SCH (09:20)
[2021-03-02] MEDS: CHOLECALCIFEROL (VIT D3) 1,000 UNIT (25 MCG) TABLET PO SCH (09:20)
[2021-03-02] MEDS: SIMETHICONE 80 MG TAB.CHEW (FP) PO PRN (13:00)
[2021-03-02] MEDS ORDERED: LORazepam 2 MG/ML SDV VIAL IVPUSH ONE (21:00)
[2021-03-02] MEDS: CHLORHEXIDINE GLUCONATE 4% CLEANSER FOR DECOLONIZATION TP SCH (22:00)
[2021-03-02] MEDS: BACITRACIN/POLYMYXIN B SULFATE 15 GM TUBE TP SCH (22:00)
[2021-03-02] MEDS: LIDOCAINE PATCH REMOVAL MC SCH (22:00)
[2021-03-03] MEDS: BUDESONIDE 0.5 MG/2 ML INH SUSP VIAL NEB SCH ×3 (00:40→21:00)
[2021-03-03] MEDS: MAG HYDROX/AL HYDROX/SIMETH 30 ML UNIT-DOSE CUP PO SCH ×3 (07:16→23:24)
[2021-03-03 07:23] LABS: BASO % 0.7 % (0-2.0); EOS % 4.2 % (0-4.5); HEMATOCRIT 30.2 % (32.4-45.2); MCH 29.5 pg (25.7-33.7); MCHC 32.9 g/dl (32.0-36.0); MEAN CELL VOLUME 89.5 fl (80-96); MEAN PLT VOLUME 8.2 fl (7.5-11.1); MONO % 7.6 % (3.8-10.2); NEUT % 70.5 % (42.8-82.8); PLATELET COUNT 356 K/MM3 (134-434); RBC 3.38 M/mm3 (3.60-5.2); RDW 17.2 % (11.6-15.6); WHITE BLOOD COUNT 14.2 K/mm3 (4.0-10.0)
[2021-03-03 07:38] LABS: CALCIUM 8.8 mg/dL (8.5-10.1)
[2021-03-03 07:39] LABS: ALBUMIN 2.8 g/dl (3.4-5.0); BLOOD UREA NITROGEN 11.6 mg/dL (7-18)
[2021-03-03 07:42] LABS: CREATININE 0.4 mg/dL (0.55-1.3)
[2021-03-03 07:44] LABS: BILIRUBIN,TOTAL 0.5 mg/dL (0.2-1); TOT PROT 6.8 g/dl (6.4-8.2)
[2021-03-03] MEDS: CHOLECALCIFEROL (VIT D3) 1,000 UNIT (25 MCG) TABLET PO SCH (10:47)
[2021-03-03] MEDS: APIXABAN 5 MG TABLET PO SCH ×2 (10:47→23:24)
[2021-03-03] MEDS: BACITRACIN/POLYMYXIN B SULFATE 15 GM TUBE TP SCH ×2 (10:48→23:04)
[2021-03-03] MEDS: FAMOTIDINE 20 MG TABLET PO SCH (10:48)
[2021-03-03] MEDS: LIDOCAINE 5% TOPICAL PATCH TP SCH (10:48)
[2021-03-03] MEDS: ASCORBIC ACID 500 MG TABLET (FP) PO SCH ×2 (10:48→23:24)
[2021-03-03] MEDS: guaiFENesin/CODEINE 10 ML UNIT-DOSE CUPS PO PRN (10:49)
[2021-03-03] MEDS: LIDOCAINE PATCH REMOVAL MC SCH (23:05)
[2021-03-03] MEDS: CHLORHEXIDINE GLUCONATE 4% CLEANSER FOR DECOLONIZATION TP SCH (23:05)
[2021-03-04] MEDS: guaiFENesin/CODEINE 10 ML UNIT-DOSE CUPS PO PRN ×2 (00:05→21:34)
[2021-03-04] MEDS: MAG HYDROX/AL HYDROX/SIMETH 30 ML UNIT-DOSE CUP PO SCH ×3 (06:49→21:34)
[2021-03-04] MEDS: BUDESONIDE 0.5 MG/2 ML INH SUSP VIAL NEB SCH ×2 (08:00→21:00)
[2021-03-04] MEDS ORDERED: PT OWN MED DRAWER 7, Y5N ONE ×2 (09:46→19:02)
[2021-03-04] MEDS: APIXABAN 5 MG TABLET PO SCH ×2 (10:46→21:33)
[2021-03-04] MEDS: FAMOTIDINE 20 MG TABLET PO SCH (10:46)
[2021-03-04] MEDS: CHOLECALCIFEROL (VIT D3) 1,000 UNIT (25 MCG) TABLET PO SCH (10:46)
[2021-03-04] MEDS: LIDOCAINE 5% TOPICAL PATCH TP SCH (10:46)
[2021-03-04] MEDS: ASCORBIC ACID 500 MG TABLET (FP) PO SCH ×2 (10:46→21:33)
[2021-03-04] MEDS: BACITRACIN/POLYMYXIN B SULFATE 15 GM TUBE TP SCH ×2 (10:47→21:32)
[2021-03-04] MEDS: BENZOCAINE/MENTH/CETYLPYRD CL 1 EACH LOZENGE MM PRN (18:10)
[2021-03-04] MEDS: ACETAMINOPHEN 325 MG TABLET (FP) PO PRN (21:33)
[2021-03-04] MEDS: LIDOCAINE PATCH REMOVAL MC SCH (21:34)
[2021-03-04] MEDS: CHLORHEXIDINE GLUCONATE 4% CLEANSER FOR DECOLONIZATION TP SCH (21:34)
[2021-03-05] MEDS: MAG HYDROX/AL HYDROX/SIMETH 30 ML UNIT-DOSE CUP PO SCH ×3 (05:58→21:05)
[2021-03-05] MEDS: BUDESONIDE 0.5 MG/2 ML INH SUSP VIAL NEB SCH ×2 (08:00→20:12)
[2021-03-05] MEDS: BACITRACIN/POLYMYXIN B SULFATE 15 GM TUBE TP SCH ×2 (09:29→21:05)
[2021-03-05] MEDS: LIDOCAINE 5% TOPICAL PATCH TP SCH (09:30)
[2021-03-05] MEDS: APIXABAN 5 MG TABLET PO SCH ×2 (09:30→21:04)
[2021-03-05] MEDS: FAMOTIDINE 20 MG TABLET PO SCH (09:30)
[2021-03-05] MEDS: CHOLECALCIFEROL (VIT D3) 1,000 UNIT (25 MCG) TABLET PO SCH (09:30)
[2021-03-05] MEDS: ASCORBIC ACID 500 MG TABLET (FP) PO SCH ×2 (09:30→21:05)
[2021-03-05] MEDS: guaiFENesin/CODEINE 10 ML UNIT-DOSE CUPS PO PRN ×2 (13:28→18:40)
[2021-03-05] MEDS ORDERED: LORATADINE 10 MG TABLET PO ONE (13:45)
[2021-03-05] MEDS: CHLORHEXIDINE GLUCONATE 4% CLEANSER FOR DECOLONIZATION TP SCH (21:05)
[2021-03-05] MEDS: LIDOCAINE PATCH REMOVAL MC SCH (21:05)
[2021-03-06] MEDS: ACETAMINOPHEN 325 MG TABLET (FP) PO PRN ×2 (03:42→21:50)
[2021-03-06] MEDS: SIMETHICONE 80 MG TAB.CHEW (FP) PO PRN ×2 (03:42→20:24)
[2021-03-06] MEDS: ONDANSETRON 4 MG/2 ML VIAL IVPB PRN ×3 (03:42→20:24)
[2021-03-06] MEDS: MAG HYDROX/AL HYDROX/SIMETH 30 ML UNIT-DOSE CUP PO SCH ×3 (06:46→21:38)
[2021-03-06] MEDS: BUDESONIDE 0.5 MG/2 ML INH SUSP VIAL NEB SCH ×2 (08:29→20:50)
[2021-03-06] MEDS: LIDOCAINE 5% TOPICAL PATCH TP SCH (09:41)
[2021-03-06] MEDS: CHOLECALCIFEROL (VIT D3) 1,000 UNIT (25 MCG) TABLET PO SCH (09:42)
[2021-03-06] MEDS: APIXABAN 5 MG TABLET PO SCH ×2 (09:42→21:38)
[2021-03-06] MEDS: ASCORBIC ACID 500 MG TABLET (FP) PO SCH ×2 (09:42→21:38)
[2021-03-06] MEDS: FAMOTIDINE 20 MG TABLET PO SCH (09:43)
[2021-03-06] MEDS: BACITRACIN/POLYMYXIN B SULFATE 15 GM TUBE TP SCH ×2 (09:44→21:38)
[2021-03-06] MEDS: LORATADINE 10 MG TABLET PO SCH (12:55)
[2021-03-06] MEDS ORDERED: PT OWN MED DRAWER 7, Y5N ONE ×2 (14:57→16:28)
[2021-03-06] MEDS: FLUTICASONE PROP 0.05% 16 GM NASAL SPRAY NS SCH (16:38)
[2021-03-06] MEDS: guaiFENesin/CODEINE 10 ML UNIT-DOSE CUPS PO PRN (21:38)
[2021-03-06] MEDS: CHLORHEXIDINE GLUCONATE 4% CLEANSER FOR DECOLONIZATION TP SCH (23:00)
[2021-03-06] MEDS: LIDOCAINE PATCH REMOVAL MC SCH (23:00)
[2021-03-07 06:26] LABS: BASO % 0.6 % (0-2.0); EOS % 7.3 % (0-4.5); HEMATOCRIT 31.1 % (32.4-45.2); HEMOGLOBIN 10.3 GM/dL (10.7-15.3); MCH 29.3 pg (25.7-33.7); MCHC 33.2 g/dl (32.0-36.0); MEAN CELL VOLUME 88.4 fl (80-96); MEAN PLT VOLUME 8.2 fl (7.5-11.1); NEUT % 68.1 % (42.8-82.8); PLATELET COUNT 349 K/MM3 (134-434); RBC 3.52 M/mm3 (3.60-5.2); RDW 16.9 % (11.6-15.6); WHITE BLOOD COUNT 13.5 K/mm3 (4.0-10.0)
[2021-03-07 06:44] LABS: CALCIUM 8.1 mg/dL (8.5-10.1)
[2021-03-07 06:45] LABS: ALBUMIN 2.9 g/dl (3.4-5.0); BLOOD UREA NITROGEN 10.5 mg/dL (7-18)
[2021-03-07 06:48] LABS: CREATININE 0.5 mg/dL (0.55-1.3)
[2021-03-07 06:49] LABS: BILIRUBIN,TOTAL 0.3 mg/dL (0.2-1); TOT PROT 6.7 g/dl (6.4-8.2)
[2021-03-07] MEDS: MAG HYDROX/AL HYDROX/SIMETH 30 ML UNIT-DOSE CUP PO SCH ×3 (07:10→22:07)
[2021-03-07] MEDS: guaiFENesin/CODEINE 10 ML UNIT-DOSE CUPS PO PRN ×3 (07:12→22:07)
[2021-03-07] MEDS: BUDESONIDE 0.5 MG/2 ML INH SUSP VIAL NEB SCH ×2 (09:22→20:43)
[2021-03-07] MEDS: CHOLECALCIFEROL (VIT D3) 1,000 UNIT (25 MCG) TABLET PO SCH (09:23)
[2021-03-07] MEDS: ASCORBIC ACID 500 MG TABLET (FP) PO SCH ×2 (09:23→22:07)
[2021-03-07] MEDS: LORATADINE 10 MG TABLET PO SCH (09:23)
[2021-03-07] MEDS: FAMOTIDINE 20 MG TABLET PO SCH (09:23)
[2021-03-07] MEDS: APIXABAN 5 MG TABLET PO SCH ×2 (09:24→22:06)
[2021-03-07] MEDS: LIDOCAINE 5% TOPICAL PATCH TP SCH (09:24)
[2021-03-07] MEDS: BACITRACIN/POLYMYXIN B SULFATE 15 GM TUBE TP SCH ×2 (09:25→22:07)
[2021-03-07] MEDS: FLUTICASONE PROP 0.05% 16 GM NASAL SPRAY NS SCH (09:25)
[2021-03-07] MEDS: ONDANSETRON 4 MG/2 ML VIAL IVPB PRN ×2 (18:28→19:30)
[2021-03-07] MEDS: ACETAMINOPHEN 325 MG TABLET (FP) PO PRN (22:06)
[2021-03-07] MEDS: CHLORHEXIDINE GLUCONATE 4% CLEANSER FOR DECOLONIZATION TP SCH (22:07)
[2021-03-07] MEDS: LIDOCAINE PATCH REMOVAL MC SCH (22:07)
[2021-03-08] MEDS: BUDESONIDE 0.5 MG/2 ML INH SUSP VIAL NEB SCH ×2 (07:35→20:10)
[2021-03-08] MEDS ORDERED: PT OWN MED DRAWER 7, Y5N ONE (10:17)
[2021-03-08] MEDS: APIXABAN 5 MG TABLET PO SCH ×2 (10:28→21:46)
[2021-03-08] MEDS: LIDOCAINE 5% TOPICAL PATCH TP SCH (10:28)
[2021-03-08] MEDS: LORATADINE 10 MG TABLET PO SCH (10:28)
[2021-03-08] MEDS: CHOLECALCIFEROL (VIT D3) 1,000 UNIT (25 MCG) TABLET PO SCH (10:29)
[2021-03-08] MEDS: FAMOTIDINE 20 MG TABLET PO SCH (10:29)
[2021-03-08] MEDS: ASCORBIC ACID 500 MG TABLET (FP) PO SCH ×2 (10:29→21:46)
[2021-03-08] MEDS: BACITRACIN/POLYMYXIN B SULFATE 15 GM TUBE TP SCH ×2 (10:29→21:47)
[2021-03-08] MEDS: FLUTICASONE PROP 0.05% 16 GM NASAL SPRAY NS SCH (11:08)
[2021-03-08] MEDS: ONDANSETRON 4 MG/2 ML VIAL IM PRN (12:56)
[2021-03-08] MEDS: MAG HYDROX/AL HYDROX/SIMETH 30 ML UNIT-DOSE CUP PO SCH ×2 (13:03→21:46)
[2021-03-08] MEDS: SIMETHICONE 80 MG TAB.CHEW (FP) PO PRN (14:22)
[2021-03-08] MEDS: guaiFENesin/CODEINE 10 ML UNIT-DOSE CUPS PO PRN ×2 (14:24→21:52)
[2021-03-08] MEDS: ACETAMINOPHEN 325 MG TABLET (FP) PO PRN (21:11)
[2021-03-08] MEDS: CHLORHEXIDINE GLUCONATE 4% CLEANSER FOR DECOLONIZATION TP SCH (21:47)
[2021-03-08] MEDS: LIDOCAINE PATCH REMOVAL MC SCH (21:47)
[2021-03-09] MEDS: MAG HYDROX/AL HYDROX/SIMETH 30 ML UNIT-DOSE CUP PO SCH ×4 (06:02→22:13)
[2021-03-09] MEDS: BUDESONIDE 0.5 MG/2 ML INH SUSP VIAL NEB SCH ×2 (08:00→19:59)
[2021-03-09] MEDS: LORATADINE 10 MG TABLET PO SCH (09:36)
[2021-03-09] MEDS: LIDOCAINE 5% TOPICAL PATCH TP SCH (09:37)
[2021-03-09] MEDS: APIXABAN 5 MG TABLET PO SCH ×2 (09:37→22:14)
[2021-03-09] MEDS: FLUTICASONE PROP 0.05% 16 GM NASAL SPRAY NS SCH (09:38)
[2021-03-09] MEDS: FAMOTIDINE 20 MG TABLET PO SCH (09:38)
[2021-03-09] MEDS: ASCORBIC ACID 500 MG TABLET (FP) PO SCH ×2 (09:39→22:15)
[2021-03-09] MEDS: CHOLECALCIFEROL (VIT D3) 1,000 UNIT (25 MCG) TABLET PO SCH (09:39)
[2021-03-09] MEDS: BACITRACIN/POLYMYXIN B SULFATE 15 GM TUBE TP SCH ×2 (10:52→22:15)
[2021-03-09] MEDS: LIDOCAINE PATCH REMOVAL MC SCH (22:13)
[2021-03-09] MEDS: CHLORHEXIDINE GLUCONATE 4% CLEANSER FOR DECOLONIZATION TP SCH (22:13)
[2021-03-09] MEDS: ACETAMINOPHEN 325 MG TABLET (FP) PO PRN (22:14)
[2021-03-09] MEDS ORDERED: guaiFENesin/CODEINE 10 ML UNIT-DOSE CUPS PO ONE (22:51)
[2021-03-10] MEDS: MAG HYDROX/AL HYDROX/SIMETH 30 ML UNIT-DOSE CUP PO SCH ×3 (05:46→22:35)
[2021-03-10] MEDS: SIMETHICONE 80 MG TAB.CHEW (FP) PO PRN ×3 (05:46→22:35)
[2021-03-10] MEDS: BUDESONIDE 0.5 MG/2 ML INH SUSP VIAL NEB SCH ×2 (08:55→20:35)
[2021-03-10] MEDS: LIDOCAINE 5% TOPICAL PATCH TP SCH (09:48)
[2021-03-10] MEDS: LORATADINE 10 MG TABLET PO SCH (09:49)
[2021-03-10] MEDS: CHOLECALCIFEROL (VIT D3) 1,000 UNIT (25 MCG) TABLET PO SCH (09:49)
[2021-03-10] MEDS: APIXABAN 5 MG TABLET PO SCH ×2 (09:49→22:36)
[2021-03-10] MEDS: ASCORBIC ACID 500 MG TABLET (FP) PO SCH ×2 (09:49→22:36)
[2021-03-10] MEDS: TRIMETHOBENZAMIDE HCL 300 MG CAPSULE PO PRN (09:49)
[2021-03-10] MEDS: FAMOTIDINE 20 MG TABLET PO SCH (09:50)
[2021-03-10] MEDS: FLUTICASONE PROP 0.05% 16 GM NASAL SPRAY NS SCH (09:50)
[2021-03-10] MEDS: BACITRACIN/POLYMYXIN B SULFATE 15 GM TUBE TP SCH ×2 (09:50→22:36)
[2021-03-10] MEDS ORDERED: PT OWN MED DRAWER 7, Y5N ONE (17:52)
[2021-03-10] MEDS: CHLORHEXIDINE GLUCONATE 4% CLEANSER FOR DECOLONIZATION TP SCH (22:36)
[2021-03-10] MEDS: LIDOCAINE PATCH REMOVAL MC SCH (22:37)
[2021-03-11] MEDS: MAG HYDROX/AL HYDROX/SIMETH 30 ML UNIT-DOSE CUP PO SCH ×3 (06:29→21:14)
[2021-03-11] MEDS: BUDESONIDE 0.5 MG/2 ML INH SUSP VIAL NEB SCH ×2 (08:06→19:58)
[2021-03-11] MEDS: LORATADINE 10 MG TABLET PO SCH (09:40)
[2021-03-11] MEDS: APIXABAN 5 MG TABLET PO SCH ×2 (09:40→21:14)
[2021-03-11] MEDS: FLUTICASONE PROP 0.05% 16 GM NASAL SPRAY NS SCH (09:41)
[2021-03-11] MEDS: ASCORBIC ACID 500 MG TABLET (FP) PO SCH ×2 (09:41→21:15)
[2021-03-11] MEDS: BACITRACIN/POLYMYXIN B SULFATE 15 GM TUBE TP SCH ×2 (09:41→21:15)
[2021-03-11] MEDS: CHOLECALCIFEROL (VIT D3) 1,000 UNIT (25 MCG) TABLET PO SCH (09:41)
[2021-03-11] MEDS: FAMOTIDINE 20 MG TABLET PO SCH (09:41)
[2021-03-11] MEDS: LIDOCAINE 5% TOPICAL PATCH TP SCH (09:41)
[2021-03-11] MEDS: SIMETHICONE 80 MG TAB.CHEW (FP) PO PRN (21:14)
[2021-03-11] MEDS: LIDOCAINE PATCH REMOVAL MC SCH (21:15)
[2021-03-11] MEDS: CHLORHEXIDINE GLUCONATE 4% CLEANSER FOR DECOLONIZATION TP SCH (21:15)
[2021-03-11] MEDS: ACETAMINOPHEN 325 MG TABLET (FP) PO PRN (23:38)
[2021-03-11] MEDS ORDERED: oxyCODONE HCL 5 MG TABLET PO ONE (23:45)
[2021-03-12 06:34] LABS: BASO % 0.6 % (0-2.0); EOS % 5.7 % (0-4.5); HEMATOCRIT 31.4 % (32.4-45.2); HEMOGLOBIN 10.2 GM/dL (10.7-15.3); LYMPH % 17.8 % (8-40); MCH 29.1 pg (25.7-33.7); MCHC 32.5 g/dl (32.0-36.0); MEAN CELL VOLUME 89.4 fl (80-96); MEAN PLT VOLUME 8.5 fl (7.5-11.1); MONO % 7.2 % (3.8-10.2); NEUT % 68.7 % (42.8-82.8); PLATELET COUNT 380 K/MM3 (134-434); RBC 3.51 M/mm3 (3.60-5.2); RDW 16.6 % (11.6-15.6); WHITE BLOOD COUNT 13.5 K/mm3 (4.0-10.0)
[2021-03-12] MEDS: MAG HYDROX/AL HYDROX/SIMETH 30 ML UNIT-DOSE CUP PO SCH ×3 (06:44→21:55)
[2021-03-12] MEDS: SIMETHICONE 80 MG TAB.CHEW (FP) PO PRN (06:44)
[2021-03-12 06:45] LABS: BLOOD UREA NITROGEN 10.4 mg/dL (7-18)
[2021-03-12 06:48] LABS: CREATININE 0.4 mg/dL (0.55-1.3)
[2021-03-12] MEDS ORDERED: BENZOCAINE/MENTH/CETYLPYRD CL 1 EACH LOZENGE MM PRN (07:22)
[2021-03-12] MEDS ORDERED: FENTANYL PATCH WASTE TD PRN (07:22)
[2021-03-12] MEDS ORDERED: SODIUM CHLORIDE NASAL SPRAY 44 ML BOTTLE NS PRN (07:22)
[2021-03-12] MEDS ORDERED: dilTIAZem HCL 50 MG/10 ML - 10 ML VIAL IVPUSH PRN (07:22)
[2021-03-12] MEDS ORDERED: ALBUTEROL SO4 HFA INHALER IH PRN (07:22)
[2021-03-12] MEDS: BUDESONIDE 0.5 MG/2 ML INH SUSP VIAL NEB SCH ×2 (08:08→20:15)
[2021-03-12] MEDS: APIXABAN 5 MG TABLET PO SCH ×2 (09:28→21:30)
[2021-03-12] MEDS: LORATADINE 10 MG TABLET PO SCH (09:28)
[2021-03-12] MEDS: LIDOCAINE 5% TOPICAL PATCH TP SCH (09:28)
[2021-03-12] MEDS: CHOLECALCIFEROL (VIT D3) 1,000 UNIT (25 MCG) TABLET PO SCH (09:29)
[2021-03-12] MEDS: FAMOTIDINE 20 MG TABLET PO SCH (09:29)
[2021-03-12] MEDS: ASCORBIC ACID 500 MG TABLET (FP) PO SCH ×2 (09:32→21:30)
[2021-03-12] MEDS: FLUTICASONE PROP 0.05% 16 GM NASAL SPRAY NS SCH (09:33)
[2021-03-12] MEDS: BACITRACIN/POLYMYXIN B SULFATE 15 GM TUBE TP SCH ×2 (09:34→23:42)
[2021-03-12] MEDS: guaiFENesin 200 MG/10 ML 10 ML UNIT-DOSE CUPS PO PRN (17:01)
[2021-03-12] MEDS ORDERED: PT OWN MED DRAWER 7, Y5N ONE ×2 (19:26→19:43)
[2021-03-12] MEDS: TRIMETHOBENZAMIDE HCL 300 MG CAPSULE PO PRN (19:44)
[2021-03-12] MEDS: ACETAMINOPHEN 325 MG TABLET (FP) PO PRN (19:46)
[2021-03-12] MEDS: CHLORHEXIDINE GLUCONATE 4% CLEANSER FOR DECOLONIZATION TP SCH (21:30)
[2021-03-12] MEDS: LIDOCAINE PATCH REMOVAL MC SCH (21:30)
[2021-03-12] MEDS ORDERED: guaiFENesin/CODEINE 10 ML UNIT-DOSE CUPS PO ONE (23:00)
[2021-03-13] MEDS: MAG HYDROX/AL HYDROX/SIMETH 30 ML UNIT-DOSE CUP PO SCH ×3 (06:39→21:11)
[2021-03-13] MEDS: BUDESONIDE 0.5 MG/2 ML INH SUSP VIAL NEB SCH ×2 (08:30→20:20)
[2021-03-13] MEDS: TRIMETHOBENZAMIDE HCL 300 MG CAPSULE PO PRN (09:10)
[2021-03-13] MEDS: FAMOTIDINE 20 MG TABLET PO SCH (10:57)
[2021-03-13] MEDS: ASCORBIC ACID 500 MG TABLET (FP) PO SCH ×2 (10:57→21:11)
[2021-03-13] MEDS: LORATADINE 10 MG TABLET PO SCH (10:57)
[2021-03-13] MEDS: APIXABAN 5 MG TABLET PO SCH ×2 (10:57→21:11)
[2021-03-13] MEDS: CHOLECALCIFEROL (VIT D3) 1,000 UNIT (25 MCG) TABLET PO SCH (10:57)
[2021-03-13] MEDS: LIDOCAINE 5% TOPICAL PATCH TP SCH (10:58)
[2021-03-13] MEDS: FLUTICASONE PROP 0.05% 16 GM NASAL SPRAY NS SCH (10:59)
[2021-03-13] MEDS: BACITRACIN/POLYMYXIN B SULFATE 15 GM TUBE TP SCH ×2 (11:08→21:12)
[2021-03-13 11:36] LABS: BASO % 0.2 % (0-2.0); EOS % 3.7 % (0-4.5); HEMATOCRIT 32.5 % (32.4-45.2); HEMOGLOBIN 10.6 GM/dL (10.7-15.3); LYMPH % 12.5 % (8-40); MCHC 32.6 g/dl (32.0-36.0); MEAN PLT VOLUME 8.5 fl (7.5-11.1); MONO % 6.6 % (3.8-10.2); PLATELET COUNT 406 K/MM3 (134-434); RBC 3.65 M/mm3 (3.60-5.2); RDW 16.6 % (11.6-15.6); WHITE BLOOD COUNT 15.3 K/mm3 (4.0-10.0)
[2021-03-13 11:53] LABS: CHLORIDE 104 mmol/L (98-107); SODIUM 140 mmol/L (136-145)
[2021-03-13 11:55] LABS: ANION GAP 5 MMOL/L (8-16); BLOOD UREA NITROGEN 10.1 mg/dL (7-18); CALCIUM 9.1 mg/dL (8.5-10.1); CO2 30 mmol/L (21-32); GLUCOSE,RANDOM 147 mg/dL (74-106)
[2021-03-13 11:58] LABS: CREATININE 0.4 mg/dL (0.55-1.3); SGOT/AST 21 U/L (15-37); SGPT/ALT 36 U/L (13-61)
[2021-03-13 12:00] LABS: BILIRUBIN,TOTAL 0.2 mg/dL (0.2-1); TOT PROT 6.9 g/dl (6.4-8.2)
[2021-03-13 12:01] LABS: ALK PHOS 91 U/L (45-117)
[2021-03-13] MEDS ORDERED: PT OWN MED DRAWER 7, Y5N ONE (15:55)
[2021-03-13 20:04] LABS: CHOLESTEROL 277 mg/dL (50-200)
[2021-03-13 20:06] LABS: LDL CHOLESTEROL (ONLY SJRH) 179 mg/dL (5-100); TRIGLYCERIDES 329 mg/dL (0-150)
[2021-03-13 20:07] LABS: HDL CHOLESTEROL 30 mg/dL (40-60)
[2021-03-13 20:10] LABS: N-TERMINAL BNP 20.1 pg/ml (5-125)
[2021-03-13] MEDS: LIDOCAINE PATCH REMOVAL MC SCH (21:12)
[2021-03-13] MEDS: CHLORHEXIDINE GLUCONATE 4% CLEANSER FOR DECOLONIZATION TP SCH (21:12)
[2021-03-13] MEDS: guaiFENesin 200 MG/10 ML 10 ML UNIT-DOSE CUPS PO PRN (21:18)
[2021-03-14] MEDS: SIMETHICONE 80 MG TAB.CHEW (FP) PO PRN (02:02)
[2021-03-14] MEDS: MAG HYDROX/AL HYDROX/SIMETH 30 ML UNIT-DOSE CUP PO SCH ×3 (06:42→21:14)
[2021-03-14 06:47] LABS: BASO % 0.4 % (0-2.0); HEMOGLOBIN 10.2 GM/dL (10.7-15.3); LYMPH % 13.6 % (8-40); MCH 28.5 pg (25.7-33.7); MEAN CELL VOLUME 89.3 fl (80-96); MEAN PLT VOLUME 8.6 fl (7.5-11.1); MONO % 6.4 % (3.8-10.2); NEUT % 74.6 % (42.8-82.8); PLATELET COUNT 370 K/MM3 (134-434); RBC 3.58 M/mm3 (3.60-5.2); RDW 16.4 % (11.6-15.6); WHITE BLOOD COUNT 15.3 K/mm3 (4.0-10.0)
[2021-03-14 07:18] LABS: CHLORIDE 104 mmol/L (98-107); SODIUM 139 mmol/L (136-145)
[2021-03-14 07:26] LABS: CALCIUM 8.9 mg/dL (8.5-10.1)
[2021-03-14 07:27] LABS: ALBUMIN 2.9 g/dl (3.4-5.0); ANION GAP 4 MMOL/L (8-16); BLOOD UREA NITROGEN 7.5 mg/dL (7-18); CO2 31 mmol/L (21-32); GLUCOSE,RANDOM 105 mg/dL (74-106)
[2021-03-14 07:29] LABS: CREATININE 0.4 mg/dL (0.55-1.3); SGOT/AST 16 U/L (15-37); SGPT/ALT 27 U/L (13-61)
[2021-03-14 07:30] LABS: BILIRUBIN,TOTAL 0.4 mg/dL (0.2-1); TOT PROT 6.8 g/dl (6.4-8.2)
[2021-03-14 07:32] LABS: ALK PHOS 83 U/L (45-117)
[2021-03-14] MEDS: BUDESONIDE 0.5 MG/2 ML INH SUSP VIAL NEB SCH ×2 (08:25→20:43)
[2021-03-14] MEDS ORDERED: PT OWN MED DRAWER 7, Y5N ONE (09:42)
[2021-03-14] MEDS: CHOLECALCIFEROL (VIT D3) 1,000 UNIT (25 MCG) TABLET PO SCH (10:21)
[2021-03-14] MEDS: LORATADINE 10 MG TABLET PO SCH (10:21)
[2021-03-14] MEDS: FAMOTIDINE 20 MG TABLET PO SCH (10:21)
[2021-03-14] MEDS: LIDOCAINE 5% TOPICAL PATCH TP SCH (10:21)
[2021-03-14] MEDS: APIXABAN 5 MG TABLET PO SCH ×2 (10:21→21:14)
[2021-03-14] MEDS: ASCORBIC ACID 500 MG TABLET (FP) PO SCH ×2 (10:21→21:15)
[2021-03-14] MEDS: TRIMETHOBENZAMIDE HCL 300 MG CAPSULE PO PRN (10:21)
[2021-03-14] MEDS: BACITRACIN/POLYMYXIN B SULFATE 15 GM TUBE TP SCH ×2 (10:55→21:15)
[2021-03-14] MEDS: FLUTICASONE PROP 0.05% 16 GM NASAL SPRAY NS SCH (10:55)
[2021-03-14] MEDS: guaiFENesin 200 MG/10 ML 10 ML UNIT-DOSE CUPS PO PRN (21:15)
[2021-03-14] MEDS: LIDOCAINE PATCH REMOVAL MC SCH (21:15)
[2021-03-14] MEDS: CHLORHEXIDINE GLUCONATE 4% CLEANSER FOR DECOLONIZATION TP SCH (21:15)
[2021-03-15] MEDS: ACETAMINOPHEN 325 MG TABLET (FP) PO PRN ×2 (03:41→21:42)
[2021-03-15] MEDS: ONDANSETRON 4 MG/2 ML VIAL IM PRN (03:41)
[2021-03-15] MEDS: MAG HYDROX/AL HYDROX/SIMETH 30 ML UNIT-DOSE CUP PO SCH ×3 (06:04→21:41)
[2021-03-15] MEDS: guaiFENesin 200 MG/10 ML 10 ML UNIT-DOSE CUPS PO PRN (06:04)
[2021-03-15] MEDS: CHOLECALCIFEROL (VIT D3) 1,000 UNIT (25 MCG) TABLET PO SCH (09:27)
[2021-03-15] MEDS: LORATADINE 10 MG TABLET PO SCH (09:28)
[2021-03-15] MEDS: FLUTICASONE PROP 0.05% 16 GM NASAL SPRAY NS SCH (09:28)
[2021-03-15] MEDS: ASCORBIC ACID 500 MG TABLET (FP) PO SCH ×2 (09:28→21:42)
[2021-03-15] MEDS: FAMOTIDINE 20 MG TABLET PO SCH (09:28)
[2021-03-15] MEDS: APIXABAN 5 MG TABLET PO SCH ×2 (09:28→21:42)
[2021-03-15] MEDS: LIDOCAINE 5% TOPICAL PATCH TP SCH (09:28)
[2021-03-15] MEDS: BACITRACIN/POLYMYXIN B SULFATE 15 GM TUBE TP SCH ×2 (10:49→21:47)
[2021-03-15] MEDS: BUDESONIDE 0.5 MG/2 ML INH SUSP VIAL NEB SCH (20:12)
[2021-03-15] MEDS: CHLORHEXIDINE GLUCONATE 4% CLEANSER FOR DECOLONIZATION TP SCH (21:46)
[2021-03-15] MEDS: LIDOCAINE PATCH REMOVAL MC SCH (21:47)
[2021-03-16] MEDS: SIMETHICONE 80 MG TAB.CHEW (FP) PO PRN (00:15)
[2021-03-16] MEDS ORDERED: PT OWN MED DRAWER 7, Y5N ONE ×2 (00:18→21:13)
[2021-03-16] MEDS: TRIMETHOBENZAMIDE HCL 300 MG CAPSULE PO PRN (00:20)
[2021-03-16] MEDS: guaiFENesin 200 MG/10 ML 10 ML UNIT-DOSE CUPS PO PRN ×2 (02:07→21:16)
[2021-03-16] MEDS: MAG HYDROX/AL HYDROX/SIMETH 30 ML UNIT-DOSE CUP PO SCH ×3 (06:28→21:16)
[2021-03-16] MEDS: ACETAMINOPHEN 325 MG TABLET (FP) PO PRN (06:28)
[2021-03-16] MEDS: BUDESONIDE 0.5 MG/2 ML INH SUSP VIAL NEB SCH ×2 (07:30→20:33)
[2021-03-16 09:01] LABS: HEMATOCRIT 33.3 % (32.4-45.2); HEMOGLOBIN 10.9 GM/dL (10.7-15.3); MCH 28.9 pg (25.7-33.7); MCHC 32.7 g/dl (32.0-36.0); MEAN CELL VOLUME 88.5 fl (80-96); MEAN PLT VOLUME 8.4 fl (7.5-11.1); PLATELET COUNT 375 K/MM3 (134-434); RBC 3.76 M/mm3 (3.60-5.2); RDW 16.4 % (11.6-15.6); WHITE BLOOD COUNT 13.5 K/mm3 (4.0-10.0)
[2021-03-16] MEDS: FAMOTIDINE 20 MG TABLET PO SCH (09:04)
[2021-03-16] MEDS: APIXABAN 5 MG TABLET PO SCH ×2 (09:04→21:16)
[2021-03-16] MEDS: ASCORBIC ACID 500 MG TABLET (FP) PO SCH ×2 (09:04→21:16)
[2021-03-16] MEDS: LORATADINE 10 MG TABLET PO SCH (09:04)
[2021-03-16] MEDS: CHOLECALCIFEROL (VIT D3) 1,000 UNIT (25 MCG) TABLET PO SCH (09:04)
[2021-03-16] MEDS: BACITRACIN/POLYMYXIN B SULFATE 15 GM TUBE TP SCH ×2 (09:05→21:17)
[2021-03-16] MEDS: LIDOCAINE 5% TOPICAL PATCH TP SCH (09:05)
[2021-03-16] MEDS: FLUTICASONE PROP 0.05% 16 GM NASAL SPRAY NS SCH (09:05)
[2021-03-16 09:35] LABS: BLOOD UREA NITROGEN 7.5 mg/dL (7-18)
[2021-03-16 09:38] LABS: CREATININE 0.4 mg/dL (0.55-1.3)
[2021-03-16] MEDS: CHLORHEXIDINE GLUCONATE 4% CLEANSER FOR DECOLONIZATION TP SCH (21:17)
[2021-03-16] MEDS: LIDOCAINE PATCH REMOVAL MC SCH (21:17)
[2021-03-17] MEDS: ACETAMINOPHEN 325 MG TABLET (FP) PO PRN (03:20)
[2021-03-17] MEDS: MAG HYDROX/AL HYDROX/SIMETH 30 ML UNIT-DOSE CUP PO SCH ×2 (06:15→14:53)
[2021-03-17] MEDS: BUDESONIDE 0.5 MG/2 ML INH SUSP VIAL NEB SCH (08:30)
[2021-03-17] MEDS: ASCORBIC ACID 500 MG TABLET (FP) PO SCH (09:01)
[2021-03-17] MEDS: LORATADINE 10 MG TABLET PO SCH (09:01)
[2021-03-17] MEDS: APIXABAN 5 MG TABLET PO SCH (09:01)
[2021-03-17] MEDS: guaiFENesin 200 MG/10 ML 10 ML UNIT-DOSE CUPS PO PRN (09:01)
[2021-03-17] MEDS: CHOLECALCIFEROL (VIT D3) 1,000 UNIT (25 MCG) TABLET PO SCH (09:01)
[2021-03-17] MEDS: FAMOTIDINE 20 MG TABLET PO SCH (09:01)
[2021-03-17] MEDS: FLUTICASONE PROP 0.05% 16 GM NASAL SPRAY NS SCH (09:02)
[2021-03-17] MEDS: LIDOCAINE 5% TOPICAL PATCH TP SCH (09:03)
[2021-03-17] MEDS: BACITRACIN/POLYMYXIN B SULFATE 15 GM TUBE TP SCH (09:03)
[2021-03-17 13:28] VITALS: BP 118/59; PULSE 88; TEMP 98
== END 2021-03-17 17:00 | DRG 137 ==
LOC: JER 22:31 → JERBED 23:03 → JICU 12-26 13:36 → J4S 02-11 19:31 → JICU 02-12 20:24 → J2W 02-27 14:34
PROVIDERS: ADMIT Internal Medicine; ATTEND Internal Medicine
PROC: XW033E5 Introduction of Remdesivir Anti-infective into Peripheral Vein, Percutaneous Approach, New Technology Group 5 (ICD-10-PCS; principal; 2020-12-25)
PROC: XW13325 Transfusion of Convalescent Plasma (Nonautologous) into Peripheral Vein, Percutaneous Approach, New Technology Group 5 (ICD-10-PCS; 2020-12-25)
PROC: XW033H5 Introduction of Tocilizumab into Peripheral Vein, Percutaneous Approach, New Technology Group 5 (ICD-10-PCS; 2020-12-25)
PROC: 0W9930Z Drainage of Right Pleural Cavity with Drainage Device, Percutaneous Approach (ICD-10-PCS; 2021-02-12)
PROC: 0W9B30Z Drainage of Left Pleural Cavity with Drainage Device, Percutaneous Approach (ICD-10-PCS; 2021-02-21)
DX: U07.1 COVID-19 (principal); J12.82 Pneumonia due to coronavirus disease 2019; J80 Acute respiratory distress syndrome; A04.72 Enterocolitis due to Clostridium difficile, not specified as recurrent; J93.9 Pneumothorax, unspecified; N39.0 Urinary tract infection, site not specified; E66.01 Morbid (severe) obesity due to excess calories; Z68.37 Body mass index [BMI] 37.0-37.9, adult; D72.829 Elevated white blood cell count, unspecified; R00.0 Tachycardia, unspecified; G43.909 Migraine, unspecified, not intractable, without status migrainosus; R74.01 Elevation of levels of liver transaminase levels; R19.7 Diarrhea, unspecified
CPT/HCPCS: 36415; 36600; 71045-TC-FY; 71250-TC; 76705-TC; 76775-TC; 80048; 80053; 80061; 81003; 82248; 82550; 82728; 82746; 82803; 82962; 83036; 83605; 83615; 83721; 83735; 83880; 84100; 84443; 84484; 84703; 85025; 85027; 85379; 85610; 85730; 86140; 86480; 86704; 86706; 86707; 86708; 86709; 86769; 86803; 87040; 87086; 87186; 87324; 87340; 87449; 87804; 93005; 93010; 93306-TC; 93971-TC; 94640; 94660; 97116-GP; 97162-GP; 99285-25; C9399; C9803; J0131; J1100; J1644; J3262; J8540; Q0162; U0003; U0005

== ENCOUNTER 2021-04-08 07:12 | Inpatient (IN) | payer OTHER ==
[2021-04-08] MEDS ORDERED: ALBUTEROL SO4 2.5/IPRATROPIUM 0.5 INH SOL 3 ML VIAL.NEB. NEB ONE ×4 (07:40→07:42)
[2021-04-08] MEDS ORDERED: LACTATED RINGERS SOLUTION 1000 ML INFUS.BAG IV ONE (07:42)
[2021-04-08 08:07] LABS: VENOUS BASE EXCESS -0.9 mmol/L (-2-2); VENOUS O2 SATURATION 66.7 % (70-80); VENOUS PCO2 54.8 mmHg (38-52); VENOUS PH 7.302 (7.310-7.410)
[2021-04-08 08:12] LABS: BASO % 0.5 % (0-2.0); EOS % 2.8 % (0-4.5); HEMATOCRIT 40.4 % (32.4-45.2); HEMOGLOBIN 12.7 GM/dL (10.7-15.3); MCH 27.1 pg (25.7-33.7); MCHC 31.4 g/dl (32.0-36.0); MEAN CELL VOLUME 86.3 fl (80-96); MEAN PLT VOLUME 8.6 fl (7.5-11.1); MONO % 5.6 % (3.8-10.2); NEUT % 70.1 % (42.8-82.8); PLATELET COUNT 439 10^3/uL (134-434); RBC 4.68 M/mm3 (3.60-5.2); RDW 15.4 % (11.6-15.6); WHITE BLOOD COUNT 14.3 K/mm3 (4.0-10.0)
[2021-04-08] MEDS ORDERED: hydrOXYzine PAMOATE 25 MG CAPSULE (FP) PO ONE ×2 (08:14→08:19)
[2021-04-08 08:28] VITALS: BMI 36.7
[2021-04-08 08:31] LABS: CHLORIDE 104 mmol/L (98-107); SODIUM 140 mmol/L (136-145)
[2021-04-08 08:33] LABS: ALBUMIN 3.8 g/dl (3.4-5.0); ANION GAP 8 MMOL/L (8-16); BLOOD UREA NITROGEN 8.6 mg/dL (7-18); CALCIUM 9.4 mg/dL (8.5-10.1); CO2 27 mmol/L (21-32); MAGNESIUM 2.5 mg/dL (1.8-2.4)
[2021-04-08 08:36] LABS: SGOT/AST 20 U/L (15-37); SGPT/ALT 29 U/L (13-61)
[2021-04-08 08:37] LABS: CREATININE 0.5 mg/dL (0.55-1.3)
[2021-04-08 08:38] LABS: BILIRUBIN,TOTAL 0.2 mg/dL (0.2-1); TOT PROT 7.7 g/dl (6.4-8.2)
[2021-04-08 08:39] LABS: ALK PHOS 88 U/L (45-117)
[2021-04-08 08:42] LABS: N-TERMINAL BNP 17.9 pg/ml (5-125)
[2021-04-08 09:00] LABS: INR 0.99 (0.83-1.09)
[2021-04-08] MEDS ORDERED: NALOXONE HCL 0.4 MG/ML VIAL IVPUSH ONE ×2 (09:11)
[2021-04-08] MEDS ORDERED: morphine CARPU-JECT 2 MG/1 ML DISP.SYRIN IVPUSH ONE ×2 (09:12→10:48)
[2021-04-08 09:14] LABS: GLUCOSE,RANDOM 109 mg/dL (74-106)
[2021-04-08] MEDS ORDERED: MORPHINE SULFATE 2 MG/ML VIAL ONE ×2 (09:14→09:43)
[2021-04-08] MEDS: DEXTROSE 5%-NORMAL SALINE 1,000 ML IV SCH (12:18)
[2021-04-08] MEDS ORDERED: oxyCODONE HCL 5 MG TABLET PO ONE (15:36)
[2021-04-08] MEDS ORDERED: oxyCODONE HCL 5 MG TABLET ONE (15:54)
[2021-04-08] MEDS: ACETAMINOPHEN 1000 MG/100 ML VIAL (NON FORMULARY) IVPB PRN (21:29)
[2021-04-08] MEDS ORDERED: MORPHINE SULFATE 2 MG/ML VIAL IVPUSH ONE (21:58)
[2021-04-09] MEDS: ACETAMINOPHEN 1000 MG/100 ML VIAL (NON FORMULARY) IVPB PRN (03:44)
[2021-04-09 07:00] LABS: HEMOGLOBIN 11.1 GM/dL (10.7-15.3); MCH 27.4 pg (25.7-33.7); MCHC 31.7 g/dl (32.0-36.0); MEAN CELL VOLUME 86.3 fl (80-96); MEAN PLT VOLUME 8.9 fl (7.5-11.1); PLATELET COUNT 343 10^3/uL (134-434); RBC 4.06 M/mm3 (3.60-5.2); RDW 15.8 % (11.6-15.6); WHITE BLOOD COUNT 12.8 K/mm3 (4.0-10.0)
[2021-04-09] MEDS ORDERED: LIDOCAINE HCL 1%, 10 MG/ML (20ML VIAL) SQ ONE (08:08)
[2021-04-09] MEDS: PANTOPRAZOLE SODIUM 40 MG VIAL IVPUSH SCH (09:19)
[2021-04-09] MEDS ORDERED: PT OWN MED DRAWER 7, Y5N ONE (11:40)
[2021-04-09] MEDS ORDERED: MORPHINE SULFATE 2 MG/ML VIAL IVPUSH PRN (12:24)
[2021-04-09] MEDS: DEXTROSE 5%-NORMAL SALINE 1,000 ML IV SCH (13:00)
[2021-04-09] MEDS ORDERED: MORPHINE SULFATE 2 MG/ML VIAL IVPUSH ONE (16:36)
[2021-04-09] MEDS: ACETAMINOPHEN 500 MG TABLET (FP) PO PRN (17:00)
[2021-04-09] MEDS: BACITRACIN 15 GM TUBE TOPICAL OINTMENT TP SCH (22:40)
[2021-04-09] MEDS: MORPHINE SULFATE 2 MG/ML VIAL IVPUSH PRN (22:42)
[2021-04-10] MEDS: MORPHINE SULFATE 2 MG/ML VIAL IVPUSH PRN ×5 (04:53→23:28)
[2021-04-10] MEDS: ENOXAPARIN NA (PORCINE) 40 MG/0.4 ML DISP.SYRIN SQ SCH (09:07)
[2021-04-10] MEDS: PANTOPRAZOLE SODIUM 40 MG VIAL IVPUSH SCH (09:08)
[2021-04-10] MEDS: BACITRACIN 15 GM TUBE TOPICAL OINTMENT TP SCH (10:00)
[2021-04-10] MEDS: DEXTROSE 5%-NORMAL SALINE 1,000 ML IV SCH (13:33)
[2021-04-10] MEDS: ACETAMINOPHEN 500 MG TABLET (FP) PO PRN (13:54)
[2021-04-11] MEDS: MORPHINE SULFATE 2 MG/ML VIAL IVPUSH PRN (06:37)
[2021-04-11 07:45] LABS: BASO % 0.2 % (0-2.0); EOS % 6.3 % (0-4.5); HEMATOCRIT 33.6 % (32.4-45.2); HEMOGLOBIN 10.9 GM/dL (10.7-15.3); LYMPH % 16.3 % (8-40); MCH 27.8 pg (25.7-33.7); MCHC 32.5 g/dl (32.0-36.0); MEAN CELL VOLUME 85.8 fl (80-96); MEAN PLT VOLUME 8.5 fl (7.5-11.1); MONO % 5.6 % (3.8-10.2); NEUT % 71.6 % (42.8-82.8); PLATELET COUNT 353 10^3/uL (134-434); RBC 3.91 M/mm3 (3.60-5.2); RDW 15.6 % (11.6-15.6); WHITE BLOOD COUNT 9.8 K/mm3 (4.0-10.0)
[2021-04-11 08:12] LABS: BLOOD UREA NITROGEN 6.6 mg/dL (7-18); CALCIUM 8.4 mg/dL (8.5-10.1)
[2021-04-11 08:15] LABS: CREATININE 0.3 mg/dL (0.55-1.3)
[2021-04-11 08:16] LABS: PHOSPHOROUS 5.1 mg/dL (2.5-4.9)
[2021-04-11 08:17] LABS: BILIRUBIN,TOTAL 0.8 mg/dL (0.2-1); TOT PROT 6.2 g/dl (6.4-8.2)
[2021-04-11 08:33] LABS: ALBUMIN 2.8 g/dl (3.4-5.0)
[2021-04-11] MEDS: DEXTROSE 5%-NORMAL SALINE 1,000 ML IV SCH (08:45)
[2021-04-11] MEDS: BACITRACIN 15 GM TUBE TOPICAL OINTMENT TP SCH (09:53)
[2021-04-11] MEDS: ENOXAPARIN NA (PORCINE) 40 MG/0.4 ML DISP.SYRIN SQ SCH (09:53)
[2021-04-11] MEDS: PANTOPRAZOLE SODIUM 40 MG VIAL IVPUSH SCH (09:53)
[2021-04-11] MEDS: ACETAMINOPHEN 500 MG TABLET (FP) PO PRN (10:33)
[2021-04-11] MEDS: SODIUM CHLORIDE NASAL SPRAY 44 ML BOTTLE NS PRN (10:34)
[2021-04-11] MEDS ORDERED: LORATADINE 10 MG TABLET PO ONE (16:27)
[2021-04-11] MEDS: ACETAMINOPHEN 325 MG TABLET (FP) PO PRN (18:54)
[2021-04-12] MEDS: ACETAMINOPHEN 325 MG TABLET (FP) PO PRN ×3 (04:56→18:38)
[2021-04-12] MEDS: ENOXAPARIN NA (PORCINE) 40 MG/0.4 ML DISP.SYRIN SQ SCH (09:23)
[2021-04-12] MEDS: PANTOPRAZOLE 40 MG TABLET PO SCH (09:25)
[2021-04-12] MEDS: LORATADINE 10 MG TABLET PO SCH (09:25)
[2021-04-12] MEDS: SODIUM CHLORIDE NASAL SPRAY 44 ML BOTTLE NS PRN (09:25)
[2021-04-12] MEDS: BACITRACIN 15 GM TUBE TOPICAL OINTMENT TP SCH (09:31)
[2021-04-13] MEDS: ACETAMINOPHEN 325 MG TABLET (FP) PO PRN ×3 (01:33→20:01)
[2021-04-13 06:41] LABS: HEMATOCRIT 32.1 % (32.4-45.2); HEMOGLOBIN 10.4 GM/dL (10.7-15.3); MCH 27.7 pg (25.7-33.7); MCHC 32.5 g/dl (32.0-36.0); MEAN CELL VOLUME 85.2 fl (80-96); PLATELET COUNT 381 10^3/uL (134-434); RBC 3.77 M/mm3 (3.60-5.2); RDW 15.5 % (11.6-15.6); WHITE BLOOD COUNT 12.1 K/mm3 (4.0-10.0)
[2021-04-13 06:58] LABS: BLOOD UREA NITROGEN 11.6 mg/dL (7-18)
[2021-04-13 07:00] LABS: CALCIUM 8.8 mg/dL (8.5-10.1)
[2021-04-13 07:01] LABS: CREATININE 0.4 mg/dL (0.55-1.3); MAGNESIUM 2.1 mg/dL (1.8-2.4); PHOSPHOROUS 4.4 mg/dL (2.5-4.9)
[2021-04-13] MEDS: LORATADINE 10 MG TABLET PO SCH (09:34)
[2021-04-13] MEDS: BACITRACIN 15 GM TUBE TOPICAL OINTMENT TP SCH (09:34)
[2021-04-13] MEDS: PANTOPRAZOLE 40 MG TABLET PO SCH (09:35)
[2021-04-13] MEDS: ENOXAPARIN NA (PORCINE) 40 MG/0.4 ML DISP.SYRIN SQ SCH (09:35)
[2021-04-14] MEDS: ACETAMINOPHEN 325 MG TABLET (FP) PO PRN ×4 (04:06→21:08)
[2021-04-14 06:45] LABS: CALCIUM 8.9 mg/dL (8.5-10.1)
[2021-04-14 06:46] LABS: ALBUMIN 3.1 g/dl (3.4-5.0); BLOOD UREA NITROGEN 8.4 mg/dL (7-18); MAGNESIUM 2.1 mg/dL (1.8-2.4)
[2021-04-14 06:49] LABS: PHOSPHOROUS 5.1 mg/dL (2.5-4.9)
[2021-04-14 06:51] LABS: BILIRUBIN,TOTAL 0.2 mg/dL (0.2-1); TOT PROT 6.8 g/dl (6.4-8.2)
[2021-04-14 06:59] LABS: CREATININE 0.3 mg/dL (0.55-1.3)
[2021-04-14 07:16] LABS: BASO % 0.5 % (0-2.0); EOS % 4.2 % (0-4.5); HEMATOCRIT 35.3 % (32.4-45.2); HEMOGLOBIN 11.3 GM/dL (10.7-15.3); LYMPH % 19.6 % (8-40); MCH 27.4 pg (25.7-33.7); MCHC 31.9 g/dl (32.0-36.0); MEAN CELL VOLUME 85.7 fl (80-96); MEAN PLT VOLUME 8.8 fl (7.5-11.1); MONO % 5.4 % (3.8-10.2); NEUT % 70.3 % (42.8-82.8); PLATELET COUNT 374 10^3/uL (134-434); RBC 4.12 M/mm3 (3.60-5.2); WHITE BLOOD COUNT 11.4 K/mm3 (4.0-10.0)
[2021-04-14] MEDS: BACITRACIN 15 GM TUBE TOPICAL OINTMENT TP SCH (09:24)
[2021-04-14] MEDS: PANTOPRAZOLE 40 MG TABLET PO SCH (09:24)
[2021-04-14] MEDS: LORATADINE 10 MG TABLET PO SCH (09:24)
[2021-04-14] MEDS: ENOXAPARIN NA (PORCINE) 40 MG/0.4 ML DISP.SYRIN SQ SCH (09:24)
[2021-04-14] MEDS ORDERED: LIDOCAINE 5% TOPICAL PATCH TP ONE (20:12)
[2021-04-15] MEDS: ACETAMINOPHEN 325 MG TABLET (FP) PO PRN (01:27)
[2021-04-15 06:44] LABS: HEMATOCRIT 34.4 % (32.4-45.2); HEMOGLOBIN 11.1 GM/dL (10.7-15.3); MCH 27.4 pg (25.7-33.7); MCHC 32.2 g/dl (32.0-36.0); MEAN CELL VOLUME 84.9 fl (80-96); MEAN PLT VOLUME 8.2 fl (7.5-11.1); PLATELET COUNT 356 10^3/uL (134-434); RBC 4.05 M/mm3 (3.60-5.2); RDW 15.3 % (11.6-15.6); WHITE BLOOD COUNT 11.9 K/mm3 (4.0-10.0)
[2021-04-15 06:58] LABS: ALBUMIN 3.1 g/dl (3.4-5.0); CALCIUM 8.9 mg/dL (8.5-10.1)
[2021-04-15 06:59] LABS: BLOOD UREA NITROGEN 7.4 mg/dL (7-18)
[2021-04-15 07:02] LABS: CREATININE 0.4 mg/dL (0.55-1.3)
[2021-04-15 07:03] LABS: BILIRUBIN,TOTAL 0.2 mg/dL (0.2-1); TOT PROT 6.6 g/dl (6.4-8.2)
[2021-04-15] MEDS ORDERED: LIDOCAINE PATCH REMOVAL MC ONE (08:15)
[2021-04-15] MEDS: LORATADINE 10 MG TABLET PO SCH (09:50)
[2021-04-15] MEDS: ENOXAPARIN NA (PORCINE) 40 MG/0.4 ML DISP.SYRIN SQ SCH (09:50)
[2021-04-15] MEDS: BACITRACIN 15 GM TUBE TOPICAL OINTMENT TP SCH (09:50)
[2021-04-15] MEDS: PANTOPRAZOLE 40 MG TABLET PO SCH (09:50)
[2021-04-15] MEDS ORDERED: SODIUM CHLORIDE NASAL SPRAY 44 ML BOTTLE NS PRN (18:03)
[2021-04-16] MEDS: ACETAMINOPHEN 325 MG TABLET (FP) PO PRN (00:14)
[2021-04-16] MEDS: ENOXAPARIN NA (PORCINE) 40 MG/0.4 ML DISP.SYRIN SQ SCH (09:06)
[2021-04-16] MEDS: LORATADINE 10 MG TABLET PO SCH (09:06)
[2021-04-16] MEDS: BACITRACIN 15 GM TUBE TOPICAL OINTMENT TP SCH (09:06)
[2021-04-16] MEDS: PANTOPRAZOLE 40 MG TABLET PO SCH (09:06)
[2021-04-17] MEDS: ACETAMINOPHEN 325 MG TABLET (FP) PO PRN (00:37)
[2021-04-17] MEDS: ENOXAPARIN NA (PORCINE) 40 MG/0.4 ML DISP.SYRIN SQ SCH (09:55)
[2021-04-17] MEDS: PANTOPRAZOLE 40 MG TABLET PO SCH (09:55)
[2021-04-17] MEDS: LORATADINE 10 MG TABLET PO SCH (09:55)
[2021-04-17] MEDS: BACITRACIN 15 GM TUBE TOPICAL OINTMENT TP SCH (09:56)
[2021-04-17 13:36] VITALS: BP 122/73; PULSE 102; TEMP 98.5
== END 2021-04-17 20:20 | disposition home or self-care (01) | DRG 143 ==
LOC: JER 07:12 → JERBED 10:26 → J4S 21:13 → JICU 04-09 16:31 → J7W 04-15 18:08
PROVIDERS: ADMIT Family Medicine; ATTEND Family Medicine
PROC: 0W9B30Z Drainage of Left Pleural Cavity with Drainage Device, Percutaneous Approach (ICD-10-PCS; principal; 2021-04-08)
DX: J93.83 Other pneumothorax (principal); T81.82XA Emphysema (subcutaneous) resulting from a procedure, initial encounter; Z86.16 Personal history of COVID-19; D72.829 Elevated white blood cell count, unspecified; R06.03 Acute respiratory distress; Y83.8 Other surgical procedures as the cause of abnormal reaction of the patient, or of later complication, without mention of misadventure at the time of the procedure
CPT/HCPCS: 36415; 71045-TC-FY; 80048; 80053; 82550; 82803; 83735; 83880; 84100; 84484; 84703; 85025; 85027; 85610; 85730; 86769; 93005; 93010; 94010; 94761; 97116-GP; 97161-GP; 99291; C9803; J0131; U0003; U0005